=== PATIENT | female | born 1980 | race Two or more races ===

== ENCOUNTER 2020-02-09 09:38 | Outpatient (REF) | payer BC, SELFPAY ==
[2020-02-09 10:22] LABS: MANUAL DIFF FLAG NO
[2020-02-09 10:49] LABS: Basophils Percent Auto 0.1 % (0-2); Eosinophils Absolute Auto 0.2 X10*3/uL (0.0-0.4); Eosinophils Percent Auto 2.7 % (0-4); Hemoglobin 12.9 g/dl (12.0-16.0); Imm Gran Abs Auto 0.01 X10*3/uL (0.00-0.03); Imm Gran Pct Auto 0.1 % (0.0-0.4); Lymphocytes Absolute Auto 2.5 X10*3/uL (1.2-4.9); Lymphocytes Percent Auto 31.5 % (20-40); Mean Corpuscular HGB Conc 32.3 g/dl (31.0-35.0); Mean Corpuscular Hemoglobin 29.3 pg (27.0-33.0); Mean Corpuscular Volume 90.7 fL (80-98); Monocytes Absolute Auto 0.5 X10*3/uL (0.1-1.2); Monocytes Percent Auto 6.4 % (2-11); Neutrophils Absolute Auto 4.7 X10*3/uL (2.0-8.3); Neutrophils Percent Auto 59.2 % (45-73); Platelet Count 378 X10*3/uL (160-400); Red Blood Count 4.41 X10*6/uL (4.20-5.50); Red Cell Distribution Width 13.2 % (11.0-16.0); White Blood Count 7.9 X10*3/uL (4.8-10.8)
[2020-02-09 11:09] LABS: Glucose Urine UA NEG (NEG); Leukocyte Esterase Urine NEG (NEG); Nitrite Urine NEG (NEG); Specific Gravity - Urine 1.025 (1.005-1.025); Urine Blood NEG (NEG); Urine Ketones NEG (NEG); Urine Protein NEG (NEG-TRACE)
[2020-02-09 11:18] LABS: Appearance Urine CLEAR; Color Urine YELLOW
[2020-02-09 11:21] LABS: Alanine Aminotransferase 21 U/L (0-31); Albumin Level 4.1 g/dL (3.5-5.0); Alkaline Phosphatase 67 U/L (39-117); Anion Gap 12 (12-20); Aspartate Amino Transferase 19 U/L (5-31); Bilirubin Total 0.2 mg/dL (0.0-1.0); Blood Urea Nitrogen 12 mg/dL (9-16); Calcium 8.9 mg/dL (8.4-10.2); Carbon Dioxide 26 mmol/L (22-29); Chloride 103 mmol/L (96-108); Cholesterol 210 mg/dL; Estimated Glomerular Filt Rate > 60; Glucose Random 93 mg/dL (60-115); HDL Cholesterol 53 mg/dL; LDL Cholesterol Calculated 121 mg/dl; Potassium 4.5 mmol/l (3.3-5.1); Sodium 136 mmol/L (135-145); Triglycerides 183 mg/dL
== END 2020-02-09 09:39 | disposition home or self-care (01) ==
LOC: HO.LAB 09:38
PROVIDERS: PCP Internal Medicine; Visit Provider Internal Medicine
DX: Z00.00 Encounter for general adult medical examination without abnormal findings (principal)
CPT/HCPCS: 36415; 80053; 80061; 81003; 85025

== ENCOUNTER 2020-05-08 11:01 | Emergency (ER) | payer BC, SELFPAY ==
[2020-05-08 11:11] VITALS: BP 121/66; BP 133/95; PULSE 66; PULSE 84; RESP 18; TEMP 37.1; O2SAT 100; BMI 41.9
--- NOTE | 2020-05-08 11:20 | XR_ITS ---
EXAMINATION: XR CHEST CLINICAL INFORMATION: Chest pain. COMPARISON: None TECHNIQUE: Frontal view of the chest was obtained. FINDINGS: No significant abnormality is noted involving the heart, lungs, mediastinum, bony thorax or soft tissues. XR/XR chest 1V IMPRESSION: Unremarkable examination.
--- NOTE | 2020-05-08 11:20 | ECG_ITS ---
Test Reason : CHEST PAIN Blood Pressure : / mmHG Vent. Rate : 075 BPM Atrial Rate : 075 BPM P-R Int : 156 ms QRS Dur : 080 ms QT Int : 386 ms P-R-T Axes : 066 058 038 degrees QTc Int : 431 ms Normal sinus rhythm with sinus arrhythmia Nonspecific T wave abnormality Abnormal ECG No previous ECGs available Referred By: Generic ED Physician Electronically Signed By:NANCY LÓPEZ MD
[2020-05-08 11:34] LABS: MANUAL DIFF FLAG NO
--- NOTE | 2020-05-08 11:34 | PC.NURSE ---
patient a&ox3, patient coms from home with lt/rt c/p since yesterday as well as low back pain, iv inserted, labs drawn, nrs 80s on library monitor, vss, will continue to monitor.
[2020-05-08 11:40] LABS: Basophils Percent Auto 0.3 % (0-2); Eosinophils Absolute Auto 0.1 X10*3/uL (0.0-0.4); Eosinophils Percent Auto 1.8 % (0-4); Hematocrit 40.5 % (37-47); Hemoglobin 13.4 g/dl (12.0-16.0); Imm Gran Abs Auto 0.03 X10*3/uL (0.00-0.03); Imm Gran Pct Auto 0.4 % (0.0-0.4); Lymphocytes Absolute Auto 1.9 X10*3/uL (1.2-4.9); Lymphocytes Percent Auto 26.2 % (20-40); Mean Corpuscular HGB Conc 33.1 g/dl (31.0-35.0); Mean Corpuscular Hemoglobin 30.2 pg (27.0-33.0); Mean Corpuscular Volume 91.4 fL (80-98); Mean Platelet Volume 10.2 fL (9.4-12.3); Monocytes Absolute Auto 0.4 X10*3/uL (0.1-1.2); Monocytes Percent Auto 5.2 % (2-11); Neutrophils Absolute Auto 4.8 X10*3/uL (2.0-8.3); Neutrophils Percent Auto 66.1 % (45-73); Platelet Count 347 X10*3/uL (160-400); Red Blood Count 4.43 X10*6/uL (4.20-5.50); Red Cell Distribution Width 15.1 % (11.0-16.0); White Blood Count 7.3 X10*3/uL (4.8-10.8)
--- NOTE | 2020-05-08 11:45 | ED.CHESTPAIN ---
HPI - Chest Pain General Chief Complaint: Chest Pain Stated Complaint: CP W/MULTI LOC EPISODES PER EMS Time Seen by Provider: 05/08/20 11:31 History of Present Illness HPI narrative: Patient is a 39-year-old female presents today with having chest pain on the right side. It is sharp in nature. Constant. Patient claims the pain has been ongoing since 14:00 yesterday. Not associated with shortness of breath. Worsened with certain position. No coughing or congestion or upper respiratory symptoms. No diaphoresis. No change in smell or taste. No history of diabetes, hypertension, mi, family history of IN. No history of smoking. No history of sudden . No history of leg swelling. No history of control. No history of pulmonary embolism. Pain is constant. No travel history Related Data Allergies Allergy/AdvReac Type Severity Reaction Status Date / Time No Known Allergies Allergy Verified 05/08/20 11:42 Review of Systems Review of Systems: Constitutional: No Weight loss, No Fever, No Chills, No Night Sweats, No Fatigue, No Malaise ENT/Mouth: No Hearing loss, No Ear Pain, No Nasal Congestion, No Sinus Pain, No Hoarseness, No sore throat, No Rhinorrhea, No Swallowing Difficulty Eyes: No Eye Pain, No Swelling, No Redness, No Foreign Body, No Discharge, No Vision Changes Cardiovascular: Positive Chest Pain, No SOB, No Dyspnea on Exertion, No Orthopnea, No Edema, No Palpitations Respiratory: No Cough, No Sputum, No Wheezing, No Smoke Exposure, No Dyspnea Gastrointestinal: No Nausea, No Vomiting, No Diarrhea, No Constipation, No abdominal Pain, No Hematochezia, No Melena Genitourinary: no irregular bleeding, No Dysuria, No Urinary Frequency, No Hematuria, No Urinary Incontinence, No Urgency, No Flank Pain, No Urinary Flow Changes, No Hesitancy Musculoskeletal: No joint pain, No Myalgias, No Joint Swelling Skin: No Skin Lesions, No rash Neuro: No Weakness, No Numbness, No Paresthesias, No Loss of Consciousness, No Dizziness, No Headache Psych: No Anxiety/Panic, No Depression, No SI/HI/AH/VH, No Social Issues, Heme/Lymph: No Bruising, No Bleeding,No Lymphadenopathy Endocrine: No Polyuria, No Polydipsia, No Temperature Intolerance [facility] Past Medical History Medical History Obesity Social History Social History Alcohol intake: never Smoked in Last 30 Days: No Use of substances other than those prescribed or required for medical reasons: No Advance Directives: No Advance Directives Information Provided: Yes Physical Exam Vital Signs: Vital Signs: Last Vital Signs Temp 98.8 F 05/08/20 11:11 Pulse 66 05/08/20 11:11 Resp 18 05/08/20 11:11 BP 133/95 H 05/08/20 11:11 Pulse Ox 100 05/08/20 11:11 Body Mass Index 41.9 Appearance: Alert. Oriented X3. No acute distress. Eyes: Pupils equal, round and reactive to light. ENT: Pharynx normal. Neck: Normal inspection. Neck supple. No lymph nodes noted. No crepitus CVS: Normal heart rate and rhythm. Pulses normal. Normal S1 and S2 Respiratory: No respiratory distress. Breath sounds normal. No Wheezing. No rales Abdomen: Soft and nontender. No rigidity. No distention. good BS x4 Skin: Skin warm and dry. Normal skin color. Normal skin turgor. Extremities: No lower extremity edema. Neurovascular intact to all extremities. No Lacerations. No Rash Neuro: Oriented X 3. No motor deficit. No sensory deficit. Moving all extermities. No slurred speech MDM - Chest Pain MDM Narrative Medical decision making narrative: No rash in the skin noted. No evidence for shingles. Patient's electrolytes are normal. Troponin is negative. test was negative. No evidence for ectopic. Chest x-ray was negative for any acute evidence of pneumonia or pneumothorax. Pain is greater than 6 hours with no significant cardiac risk factor. history not consistent with ACS unlikely to be ACS is heart score less than 3 Lab Data Attestation: I reviewed the patient's lab results. Result diagrams: 05/08/20 11:29 05/08/20 11:29 Labs: Lab Results 05/08/20 05/08/20 05/08/20 Range/Units 11:29 11:29 11:29 WBC 7.3 (4.8-10.8) X10*3/uL RBC 4.43 (4.20-5.50) X10*6/uL Hgb 13.4 (12.0-16.0) g/dl Hct 40.5 (37-47) % MCV 91.4 (80-98) fL MCH 30.2 (27.0-33.0) pg MCHC 33.1 (31.0-35.0) g/dl RDW 15.1 (11.0-16.0) % Plt Count 347 (160-400) X10*3/uL MPV 10.2 (9.4-12.3) fL Immature Gran % (Auto) 0.4 (0.0-0.4) % Neut % (Auto) 66.1 (45-73) % Lymph % (Auto) 26.2 (20-40) % [place] % (Auto) 5.2 (2-11) % Eos % (Auto) 1.8 (0-4) % Baso % (Auto) 0.3 (0-2) % Lymph # (Auto) 1.9 (1.2-4.9) X10*3/uL [place] # (Auto) 0.4 (0.1-1.2) X10*3/uL Eos # (Auto) 0.1 (0.0-0.4) X10*3/uL Baso # (Auto) 0.0 (0.0-0.2) X10*3/uL Abs Immat Gran (auto) 0.03 (0.00-0.03) X10*3/uL Absolute Neuts (auto) 4.8 (2.0-8.3) X10*3/uL Absolute Nucleated RBC 0.000 (0.0-0.012) X10*3/uL Nucleated RBC % (auto) 0.0 (0.0-0.2) /100WBC D-Dimer < 200 NG/ML Hold Blue Top SEE NOTE Sodium 135 (135-145) mmol/L Potassium 5.0 (3.3-5.1) mmol/l Chloride 103 (96-108) mmol/L Carbon Dioxide 18 L (22-29) mmol/L Anion Gap 19 (12-20) BUN 12 (9-16) mg/dL Creatinine 1.48 H (0.5-1.4) mg/dL Estim Creat Clear Calc 66.0 Estimated GFR 39 Random Glucose 107 (60-115) mg/dL Calcium 9.2 (8.4-10.2) mg/dL Total Bilirubin 0.5 (0.0-1.0) mg/dL Direct Bilirubin < 0.2 (0.0-0.5) mg/dL AST 47 H D (5-31) U/L ALT 30 (0-31) U/L Alkaline Phosphatase 54 (39-117) U/L Troponin I High Sens (<3.5-17.0) ng/L Total Protein 7.8 (6.5-8.0) g/dL Albumin 4.6 (3.5-5.0) g/dL Lipase 19 (8-78) U/L Beta HCG, Quant < 2 mIU/mL 05/08/20 Range/Units 11:29 WBC (4.8-10.8) X10*3/uL RBC (4.20-5.50) X10*6/uL Hgb (12.0-16.0) g/dl Hct (37-47) % MCV (80-98) fL MCH (27.0-33.0) pg MCHC (31.0-35.0) g/dl RDW (11.0-16.0) % Plt Count (160-400) X10*3/uL MPV (9.4-12.3) fL Immature Gran % (Auto) (0.0-0.4) % Neut % (Auto) (45-73) % Lymph % (Auto) (20-40) % [place] % (Auto) (2-11) % Eos % (Auto) (0-4) % Baso % (Auto) (0-2) % Lymph # (Auto) (1.2-4.9) X10*3/uL [place] # (Auto) (0.1-1.2) X10*3/uL Eos # (Auto) (0.0-0.4) X10*3/uL Baso # (Auto) (0.0-0.2) X10*3/uL Abs Immat Gran (auto) (0.00-0.03) X10*3/uL Absolute Neuts (auto) (2.0-8.3) X10*3/uL Absolute Nucleated RBC (0.0-0.012) X10*3/uL Nucleated RBC % (auto) (0.0-0.2) /100WBC D-Dimer NG/ML Hold Blue Top Sodium (135-145) mmol/L Potassium (3.3-5.1) mmol/l Chloride (96-108) mmol/L Carbon Dioxide (22-29) mmol/L Anion Gap (12-20) BUN (9-16) mg/dL Creatinine (0.5-1.4) mg/dL Estim Creat Clear Calc Estimated GFR Random Glucose (60-115) mg/dL Calcium (8.4-10.2) mg/dL Total Bilirubin (0.0-1.0) mg/dL Direct Bilirubin (0.0-0.5) mg/dL AST (5-31) U/L ALT (0-31) U/L Alkaline Phosphatase (39-117) U/L Troponin I High Sens < 3.5 (<3.5-17.0) ng/L Total Protein (6.5-8.0) g/dL Albumin (3.5-5.0) g/dL Lipase (8-78) U/L Beta HCG, Quant mIU/mL ECG Data ECG #1: Interpretation: Sinus heart rate is 75 ND QRS normal. Nonspecific T-wave flattening diffusely. Discharge Plan Discharge Clinical Impression: Chest pain Patient Disposition: Home, Self-Care Instructions: Chest Pain (ED) Referrals: Shiva Willingham MD [Primary Care Provider] - 2 days
[2020-05-08 12:01] LABS: Anion Gap 19 (12-20); Blood Urea Nitrogen 12 mg/dL (9-16); Calcium 9.2 mg/dL (8.4-10.2); Carbon Dioxide 18 mmol/L (22-29); Chloride 103 mmol/L (96-108); Estimated Glomerular Filt Rate 39; Glucose Random 107 mg/dL (60-115); Sodium 135 mmol/L (135-145)
[2020-05-08 12:03] LABS: D Dimer < 200 NG/ML
[2020-05-08 12:09] LABS: Troponin-I High Sensitivity < 3.5 ng/L (<3.5-17.0)
[2020-05-08] MEDS: Ketorolac Tromethamine 15 MG/ML VIAL IV (12:12)
--- NOTE | 2020-05-08 12:13 | PC.NURSE ---
patient medicated per order
--- NOTE | 2020-05-08 12:16 | PC.NURSE ---
patient medicated for pain per order
[2020-05-08 12:20] LABS: HCG Quantitative < 2 mIU/mL
[2020-05-08 12:39] LABS: Alanine Aminotransferase 30 U/L (0-31); Albumin Level 4.6 g/dL (3.5-5.0); Alkaline Phosphatase 54 U/L (39-117); Aspartate Amino Transferase 47 U/L (5-31); Bilirubin Direct < 0.2 mg/dL (0.0-0.5); Bilirubin Total 0.5 mg/dL (0.0-1.0); Lipase 19 U/L (8-78); Total Protein 7.8 g/dL (6.5-8.0)
[2020-05-08] MEDS: 0.9 % Sodium Chloride 1,000 ML 999 ML IV (13:15)
--- NOTE | 2020-05-08 13:15 | PC.NURSE ---
patient medicated with ns per order, vehicle monitor technician remains sinus danelle 60s, will continue to monitor.
== END 2020-05-08 14:12 | disposition home or self-care (01) ==
PROVIDERS: Emergency Provider Emergency Medicine Emergency Medical Services; PCP Internal Medicine
DX: R07.9 Chest pain, unspecified (principal)
CPT/HCPCS: 36415; 71045; 80048; 80076; 83690; 84484; 84702; 85025; 85379; 93005; 96361; 96374; 99284; J1885

== ENCOUNTER 2020-07-19 10:11 | Outpatient (REF) | payer BC, SELFPAY ==
[2020-07-19 11:31] LABS: TSH reflex Free T4 20.05 uIU/mL (0.32-4.0)
== END 2020-07-19 10:12 | disposition home or self-care (01) ==
LOC: HO.LNP 10:11
PROVIDERS: Visit Provider Internal Medicine
DX: E03.9 Hypothyroidism, unspecified (principal)
CPT/HCPCS: 84439; 84443

== ENCOUNTER 2020-08-30 10:17 | Outpatient (REF) | payer BC, SELFPAY ==
[2020-08-30 11:26] LABS: TSH reflex Free T4 4.09 uIU/mL (0.32-4.0)
[2020-08-30 12:35] LABS: Free T4 (Free Thyroxine) 1.03 ng/dL (0.71-1.85)
== END 2020-08-30 10:18 | disposition home or self-care (01) ==
LOC: HO.LNP 10:17
PROVIDERS: Visit Provider Internal Medicine
DX: E03.9 Hypothyroidism, unspecified (principal)
CPT/HCPCS: 84439; 84443

== ENCOUNTER 2020-09-07 10:20 | Outpatient (REF) | payer BC, SELFPAY ==
[2020-09-08 13:46] LABS: Lyme Abs Screen <0.90 index
== END 2020-09-07 10:21 | disposition home or self-care (01) ==
LOC: HO.LNP 10:20
PROVIDERS: Visit Provider Internal Medicine
DX: R00.2 Palpitations (principal)
CPT/HCPCS: 86617; 86618

== ENCOUNTER 2020-10-08 10:11 | Outpatient (REF) | payer BC, SELFPAY | END 2020-10-08 10:12 | disposition home or self-care (01) | LOC: HO.LNP 10:11 | PROVIDERS: Visit Provider Internal Medicine | DX: N30.00 Acute cystitis without hematuria (principal) | CPT/HCPCS: 87086 ==

== ENCOUNTER 2021-02-08 10:59 | Outpatient (REF) | payer BC, SELFPAY ==
[2021-02-08 11:01] LABS: MANUAL DIFF FLAG NO
[2021-02-08 11:22] LABS: Basophils Percent Auto 0.3 % (0-2); Eosinophils Absolute Auto 0.2 X10*3/uL (0.0-0.4); Eosinophils Percent Auto 2.6 % (0-4); Hematocrit 38.9 % (37-47); Hemoglobin 12.5 g/dl (12.0-16.0); Imm Gran Abs Auto 0.02 X10*3/uL (0.00-0.03); Imm Gran Pct Auto 0.3 % (0.0-0.4); Lymphocytes Absolute Auto 2.2 X10*3/uL (1.2-4.9); Lymphocytes Percent Auto 31.7 % (20-40); Mean Corpuscular HGB Conc 32.1 g/dl (31.0-35.0); Mean Corpuscular Hemoglobin 29.4 pg (27.0-33.0); Mean Corpuscular Volume 91.5 fL (80-98); Mean Platelet Volume 10.3 fL (9.4-12.3); Monocytes Absolute Auto 0.4 X10*3/uL (0.1-1.2); Monocytes Percent Auto 6.2 % (2-11); Neutrophils Absolute Auto 4.1 X10*3/uL (2.0-8.3); Neutrophils Percent Auto 58.9 % (45-73); Platelet Count 348 X10*3/uL (160-400); Red Blood Count 4.25 X10*6/uL (4.20-5.50)
[2021-02-08 11:32] LABS: Alanine Aminotransferase 14 U/L (0-31); Albumin Level 3.9 g/dL (3.5-5.0); Alkaline Phosphatase 73 U/L (39-117); Anion Gap 11 (12-20); Aspartate Amino Transferase 17 U/L (5-31); Bilirubin Total 0.4 mg/dL (0.0-1.0); Blood Urea Nitrogen 11 mg/dL (9-16); Calcium 9.2 mg/dL (8.4-10.2); Carbon Dioxide 27 mmol/L (22-29); Chloride 104 mmol/L (96-108); Cholesterol 191 mg/dL; Estimated Glomerular Filt Rate > 60; Glucose Fasting 93 mg/dL (60-99); HDL Cholesterol 40 mg/dL; LDL Cholesterol Calculated 110 mg/dl; Potassium 4.3 mmol/L (3.3-5.1); Sodium 138 mmol/L (135-145); Total Protein 6.8 g/dL (6.5-8.0); Triglycerides 209 mg/dL
[2021-02-08 11:53] LABS: Appearance Urine CLEAR; Color Urine YELLOW; Glucose Urine UA NEG (NEG); Leukocyte Esterase Urine NEG (NEG); Nitrite Urine NEG (NEG); Specific Gravity - Urine 1.025 (1.005-1.025); Urine Blood NEG (NEG); Urine Ketones NEG (NEG); Urine Protein NEG (NEG-TRACE)
[2021-02-08 11:54] LABS: TSH reflex Free T4 2.94 uIU/mL (0.32-4.0)
== END 2021-02-08 11:00 | disposition home or self-care (01) ==
LOC: HO.LNP 10:59
PROVIDERS: Visit Provider Internal Medicine
DX: Z00.00 Encounter for general adult medical examination without abnormal findings (principal); R79.9 Abnormal finding of blood chemistry, unspecified; E03.9 Hypothyroidism, unspecified
CPT/HCPCS: 80053; 80061; 81003; 84443; 85025

== ENCOUNTER 2021-02-25 07:03 | Day surgery (SDC) | payer BC, SELFPAY ==
--- NOTE | 2021-02-23 14:59 | HO.ANESPROP2 ---
Documented by User: Phyllis Azar NP 02/23/21 15:00 HPI - Anesthesia Eval Consult details Narrative: 40yo F for Upper Endoscopy [facility] Past Medical History Medical History (Updated 02/17/21 @ 14:21 by Trisha Mendez RN) Abdominal discomfort History of [place] thyroiditis History of palpitations Hypothyroid Obesity Surgical History Surgical History (Updated 02/17/21 @ 14:19 by Trisha Mendez RN) Hx of ovarian cystectomy Social History Social History Alcohol intake: never Patient Tobacco Use Status: Never used Tobacco Use of substances other than those prescribed or required for medical reasons: No Are you DNR?: No Advance Directives: No Advance Directives Information Provided: Yes Recently lost weight without trying: No Nutrition Risks: No Nutritional Risk Meds Allergies Allergy/AdvReac Type Severity Reaction Status Date / Time No Known Allergies Allergy Verified 02/17/21 14:21 Home Medications Medication Instructions Recorded Confirmed Last Taken Type calcium carbonate 500 mg calcium 500 mg PO DAILY 02/17/21 02/17/21 Unknown History (1,250 mg) chewable tablet levothyroxine 100 mcg capsule 100 mcg PO DAILY 02/17/21 02/17/21 Unknown History multivitamin 1 tab PO DAILY 02/17/21 02/17/21 Unknown History Exam Exam Date and Time: February 23, 2021 [id number] Assessment and Plan Assessment Anesthesia Assessment: Chart Reviewed Documented by User: Dorothy Whipple MD 02/25/21 07:47 [facility] Past Medical History Medical History (Updated 02/17/21 @ 14:21 by Trisha Mendez RN) Abdominal discomfort History of [place] thyroiditis History of palpitations Hypothyroid Obesity Surgical History Surgical History (Updated 02/17/21 @ 14:19 by Trisha Mendez RN) Hx of ovarian cystectomy Social History Social History Alcohol intake: never Patient Tobacco Use Status: Never used Tobacco Use of substances other than those prescribed or required for medical reasons: No Are you DNR?: No Advance Directives: No Advance Directives Information Provided: Yes Recently lost weight without trying: No Nutrition Risks: No Nutritional Risk Meds Allergies Allergy/AdvReac Type Severity Reaction Status Date / Time No Known Allergies Allergy Verified 02/17/21 14:21 Home Medications Medication Instructions Recorded Confirmed Last Taken Type calcium carbonate 500 mg calcium 500 mg PO DAILY 02/17/21 02/17/21 Unknown History (1,250 mg) chewable tablet levothyroxine 100 mcg capsule 100 mcg PO DAILY 02/17/21 02/17/21 Unknown History multivitamin 1 tab PO DAILY 02/17/21 02/17/21 Unknown History Exam Airway Mallampati Class: II TM Dist: >3cm Neck ROM: Full
[2021-02-25 07:21] VITALS: BP 123/66; PULSE 75; RESP 16; TEMP 36.2; O2SAT 98; BMI 38.4
[2021-02-25 07:22] LABS: UPreg QC Valid YES; Urine Pregnancy NEGATIVE (NEGATIVE)
[2021-02-25] MEDS: Lactated Ringers 1,000 ML 100 ML IVCONT (07:39)
--- NOTE | 2021-02-25 08:24 | MHC.SHP ---
Pre-Procedural Eval Section A Date of Service: 02/25/21 Section B Chief Complaint: reflux disease Details of Present Illness: See H&P no changes Relevant Family History (Specify if Yes): No Relevant Social History: None Present Medications: see Short Stay Collaborative assessment Medical History: No relevant PMH History of Previous Operations: No relevant previous surgery Allergies: Allergies Allergy/AdvReac Type Severity Reaction Status Date / Time No Known Allergies Allergy Verified 02/17/21 14:21 Review of Systems Sugical H&P ROS: Negative: Constitution, Cardiovascular, Respiratory, Neurological, Psychiatric, Hem-Onc, Allergic/Immunologic, Gastrointestinal, Genitourinary, Musculoskeletal, Integumentary, Endocrine and Eyes/Ears/Nose/Throat Exam Surgical H&P Exam: Normal: HEENT, Normal: Heart, Normal: Lungs, Normal: Extremities, Normal: Abdomen, Normal: Skin and Normal: Neurological Plan Diagnosis/Plan: Unchanged I have reviewed the history and physical and performed a pertinent physical examination on my patient. No changes have occurred unless specified.
--- NOTE | 2021-02-25 08:47 | PM.OP ---
Brief Operative Note Date of Service: 02/25/21 Pre-op diagnosis: gerd Post-op diagnosis: same (gastritis) Procedure: EGD Surgeon: Derek Green Anesthesia: MAC Was an Dry Kiln Operator used for this Procedure?: No Estimated blood loss (mL): 5 Pathology: other (bxs antrum and egj) Condition: stable Disposition: PACU
[2021-02-25 08:50] VITALS: BP 92/57; PULSE 74; RESP 16; TEMP 36.4; O2SAT 99
[2021-02-25 09:04] VITALS: BP 107/70; PULSE 71; RESP 16; TEMP 36.4; O2SAT 98
--- NOTE | 2021-02-25 11:19 | OP_ITS ---
SURGEON: Derek Green MD INDICATIONS: Gastroesophageal reflux disease. PREOPERATIVE DIAGNOSIS: POSTOPERATIVE DIAGNOSIS: PROCEDURE PERFORMED: Upper endoscopy with biopsy. ESTIMATED BLOOD LOSS: COMPLICATIONS: ANESTHESIA: ASSISTANTS: SPECIMENS: MEDICATIONS: Monitored anesthesia care. DESCRIPTION OF PROCEDURE: History and physical performed. The risks and benefits of the procedure were explained to the patient. Informed consent was obtained. The patient was placed in the left lateral decubitus position. The Olympus video gastroscope was introduced into the esophagus, stomach, and duodenum. Examination was performed and the scope was removed. She tolerated the procedure well and was taken to recovery area in stable condition. FINDINGS: Esophagus: The esophagus was normal. There was an irregular EG junction. There was no esophagitis. Stomach: The stomach showed no evidence of masses, ulcers, or polyps. There was mild gastritis mainly in the fundus with some punctate erythema. There was some thickening of folds in the antrum, but no ulcer. Biopsies were obtained from the antrum to rule out H pylori. Duodenum: The bulb and second portion were normal. IMPRESSION: 1. Gastritis. 2. Gastroesophageal reflux disease. RECOMMENDATIONS: 1. Follow up the biopsy results. 2. Treat H pylori if present. MD SHIELA Miguel/SHANNAN / [id number]
== END 2021-02-25 09:33 | disposition home or self-care (01) ==
PROVIDERS: Nurse Practitioner; PCP Internal Medicine; Visit Provider Internal Medicine Gastroenterology
PROC: 0DJ08ZZ Inspection of Upper Intestinal Tract, Via Natural or Artificial Opening Endoscopic (ICD-10-PCS; CPT 43235; principal; 2021-02-25 08:10)
DX: K21.9 Gastro-esophageal reflux disease without esophagitis (principal); K29.50 Unspecified chronic gastritis without bleeding; B96.81 Helicobacter pylori [H. pylori] as the cause of diseases classified elsewhere; E06.3 Autoimmune thyroiditis; E03.9 Hypothyroidism, unspecified; R00.2 Palpitations; Z79.899 Other long term (current) drug therapy
CPT/HCPCS: 43239; 81025; 88305; 88342; J3010

== ENCOUNTER 2021-06-24 10:18 | Outpatient (REF) | payer BC, SELFPAY | END 2021-06-24 10:19 | disposition home or self-care (01) | LOC: HO.LNP 10:18 | PROVIDERS: Visit Provider Internal Medicine Gastroenterology | DX: A04.8 Other specified bacterial intestinal infections (principal) | CPT/HCPCS: 87338 ==

== ENCOUNTER 2021-08-12 10:26 | Outpatient (REF) | payer BC, SELFPAY ==
[2021-08-12 11:27] LABS: TSH reflex Free T4 2.54 uIU/mL (0.32-4.0)
== END 2021-08-12 10:27 | disposition home or self-care (01) ==
LOC: HO.LNP 10:26
PROVIDERS: Visit Provider Internal Medicine
DX: E03.9 Hypothyroidism, unspecified (principal)
CPT/HCPCS: 84443

== ENCOUNTER 2022-02-14 10:57 | Outpatient (REF) | payer BC, SELFPAY ==
[2022-02-14 11:00] LABS: MANUAL DIFF FLAG NO
[2022-02-14 11:09] LABS: Basophils Percent Auto 0.1 % (0-2); Eosinophils Absolute Auto 0.2 X10*3/uL (0.0-0.4); Eosinophils Percent Auto 2.7 % (0-4); Hematocrit 37.4 % (37.0-47.0); Imm Gran Abs Auto 0.01 X10*3/uL (0.00-0.03); Imm Gran Pct Auto 0.1 % (0.0-0.4); Lymphocytes Absolute Auto 2.4 X10*3/uL (1.2-4.9); Lymphocytes Percent Auto 33.2 % (20-40); Mean Corpuscular HGB Conc 32.1 g/dl (31.0-35.0); Mean Corpuscular Hemoglobin 29.5 pg (27.0-33.0); Mean Corpuscular Volume 91.9 fL (80.0-98.0); Monocytes Absolute Auto 0.5 X10*3/uL (0.1-1.2); Monocytes Percent Auto 7.5 % (2-11); Neutrophils Percent Auto 56.4 % (45-73); Platelet Count 383 X10*3/uL (160-400); Red Blood Count 4.07 X10*6/uL (4.20-5.50); Red Cell Distribution Width 13.2 % (11.0-16.0); White Blood Count 7.1 X10*3/uL (4.8-10.8)
[2022-02-14 11:22] LABS: Appearance Urine Clear; Color Urine Straw; Glucose Urine UA Negative (Negative); Leukocyte Esterase Urine Negative (Negative); Nitrite Urine Negative (Negative); PH 5.5 (5.0-9.0); Specific Gravity - Urine >= 1.030 (1.005-1.025); UMIC TRIGGER UA YES; Urine Blood Trace (Negative); Urine Ketones Negative (Negative); Urine Protein Negative (Neg-Trace)
[2022-02-14 11:27] LABS: Alanine Aminotransferase 14 U/L (0-31); Albumin Level 3.8 g/dL (3.5-5.0); Alkaline Phosphatase 72 U/L (39-117); Anion Gap 14 (12-20); Aspartate Amino Transferase 15 U/L (5-31); Bilirubin Total 0.2 mg/dL (0.0-1.0); Blood Urea Nitrogen 17 mg/dL (9-16); Calcium 8.9 mg/dL (8.4-10.2); Carbon Dioxide 25 mmol/L (22-29); Chloride 106 mmol/L (96-108); Cholesterol 163 mg/dL; Estimated Glomerular Filt Rate > 60; Glucose Fasting 99 mg/dL (60-99); HDL Cholesterol 44 mg/dL; LDL Cholesterol Calculated 98 mg/dl; Potassium 4.5 mmol/L (3.3-5.1); Sodium 140 mmol/L (135-145); Total Protein 6.7 g/dL (6.5-8.0); Triglycerides 105 mg/dL
[2022-02-14 11:34] LABS: Bacteria Urine None Seen (None Seen); Hyaline Casts Urine 0-2 /LPF (0-2); RBC Urine 0-2 /HPF (0-2); WBC Urine 0-5 /HPF (0-5)
[2022-02-14 11:48] LABS: TSH reflex Free T4 2.85 uIU/mL (0.32-4.0)
== END 2022-02-14 10:58 | disposition home or self-care (01) ==
LOC: HO.LNP 10:57
PROVIDERS: Visit Provider Internal Medicine
DX: Z00.00 Encounter for general adult medical examination without abnormal findings (principal); E03.9 Hypothyroidism, unspecified; E66.01 Morbid (severe) obesity due to excess calories
CPT/HCPCS: 80053; 80061; 81001; 84443; 85025

== ENCOUNTER 2022-02-22 19:11 | Emergency (ER) | payer BC, SELFPAY ==
--- NOTE | 2022-02-22 19:14 | ECG_ITS ---
Test Reason : chest pain Blood Pressure : / mmHG Vent. Rate : 099 BPM Atrial Rate : 099 BPM P-R Int : 136 ms QRS Dur : 082 ms QT Int : 338 ms P-R-T Axes : 071 054 042 degrees QTc Int : 433 ms Normal sinus rhythm Normal ECG When compared with ECG of 08-MAY-2020 11:08, Nonspecific T wave abnormality no longer evident in Lateral leads Referred By: Generic ED Physician Electronically Signed By:KELIN VENEGAS MD
[2022-02-22 19:17] VITALS: BP 118/93; PULSE 90; RESP 18; TEMP 36.6; O2SAT 99; BMI 38.8
[2022-02-22 19:35] LABS: MANUAL DIFF FLAG NO
[2022-02-22 19:46] LABS: Basophils Percent Auto 0.2 % (0-2); Eosinophils Absolute Auto 0.2 X10*3/uL (0.0-0.4); Eosinophils Percent Auto 1.7 % (0-4); Hematocrit 36.6 % (37.0-47.0); Hemoglobin 11.8 g/dl (12.0-16.0); Imm Gran Abs Auto 0.04 X10*3/uL (0.00-0.03); Imm Gran Pct Auto 0.3 % (0.0-0.4); Lymphocytes Absolute Auto 2.5 X10*3/uL (1.2-4.9); Lymphocytes Percent Auto 19.7 % (20-40); Mean Corpuscular HGB Conc 32.2 g/dl (31.0-35.0); Mean Corpuscular Hemoglobin 29.1 pg (27.0-33.0); Mean Corpuscular Volume 90.4 fL (80.0-98.0); Mean Platelet Volume 9.7 fL (9.4-12.3); Monocytes Absolute Auto 0.9 X10*3/uL (0.1-1.2); Monocytes Percent Auto 7.5 % (2-11); Neutrophils Absolute Auto 8.9 x10*3/uL (2.0-8.3); Neutrophils Percent Auto 70.6 % (45-73); Platelet Count 390 X10*3/uL (160-400); Red Blood Count 4.05 X10*6/uL (4.20-5.50); Red Cell Distribution Width 12.9 % (11.0-16.0); White Blood Count 12.6 X10*3/uL (4.8-10.8)
[2022-02-22 19:55] LABS: Alanine Aminotransferase 16 U/L (0-31); Alkaline Phosphatase 79 U/L (39-117); Anion Gap 15 (12-20); Aspartate Amino Transferase 15 U/L (5-31); Bilirubin Total 0.2 mg/dL (0.0-1.0); Blood Urea Nitrogen 12 mg/dL (9-16); Carbon Dioxide 24 mmol/L (22-29); Chloride 102 mmol/L (96-108); Creatinine Clr Calc Pharmacy 110.2; Estimated Glomerular Filt Rate > 60; Glucose Random 114 mg/dL (60-115); Potassium 4.2 mmol/L (3.3-5.1); Sodium 137 mmol/L (135-145); Total Protein 7.1 g/dL (6.5-8.0)
[2022-02-22 19:58] LABS: Troponin-I High Sensitivity < 3.5 ng/L (<3.5-17.0)
== END 2022-02-23 02:02 | disposition left against medical advice (07) ==
LOC: HO.ED 02-23 01:51
PROVIDERS: Emergency Provider Emergency Medicine; PCP Internal Medicine
DX: R07.9 Chest pain, unspecified (principal); E66.9 Obesity, unspecified; Z68.38 Body mass index [BMI] 38.0-38.9, adult
CPT/HCPCS: 36415; 80053; 84484; 85025; 93005; 99283

== ENCOUNTER 2022-02-24 14:50 | Emergency (ER) | payer BC, SELFPAY ==
--- NOTE | 2022-02-24 | ECG_ITS ---
Test Reason : CHEST PAIN Blood Pressure : / mmHG Vent. Rate : 069 BPM Atrial Rate : 069 BPM P-R Int : 136 ms QRS Dur : 088 ms QT Int : 406 ms P-R-T Axes : 051 031 023 degrees QTc Int : 435 ms Normal sinus rhythm Normal ECG When compared with ECG of 22-FEB-2022 19:14, Heart rate has decreased Referred By: Generic ED Physician Electronically Signed By:KELIN VENEGAS MD
--- NOTE | ~2022-02-24 | CT_ITS ---
EXAMINATION: CTA CHEST CT ABDOMEN AND PELVIS WITH CONTRAST CLINICAL INFORMATION: Elevated d-dimer. Chest pain radiating to the back. COMPARISON: Chest x-ray 02/24/2022 TECHNIQUE: A noncontrast localizer was performed, followed by the administration of 85 mL Omnipaque [address] of the chest was then performed. Coronal and sagittal reformatted and 3-D technique MIP images of the chest were completed at the CT scanner and reviewed on the PACS workstation. No adverse effects were reported. Images were then performed through the abdomen and pelvis. Coronal and sagittal reformatted images performed at CT scanner by technologist. [This CT examination was performed using dose optimization techniques as appropriate, variously including the following: *Automated exposure control *Adjustment of mA and/or kV according to patient size (this includes techniques or standardized protocols for targeted exams where dose is matched to indication/reason for exam; i.e. extremities or head) *Use of iterative reconstruction technique] DLP: 1263 mGy-cm. FINDINGS: CTA CHEST Vascular: The main pulmonary artery, secondary and tertiary branches of the pulmonary artery are normally opacified with no evidence of pulmonary embolism. The aorta and great vessels are unremarkable. Mediastinum: No mediastinal mass. No significant lymphadenopathy. There is no pericardial effusion. Lungs: The lungs are clear. No nodule or infiltrate. Central bronchial airways open. Fluid: There is no pericardial effusion. There is no pleural effusion. Axilla: No significant lymphadenopathy. CT SCAN ABDOMEN/PELVIS: Liver, Gallbladder and Biliary Tree: The liver is normal in size, shape, and attenuation. No focal hepatic lesion or biliary ductal dilatation is present. The gallbladder is unremarkable with no evidence of radiopaque gallstones, gallbladder wall thickening, or obvious pericholecystic inflammatory changes. Pancreas: Unremarkable. Spleen: Unremarkable. Adrenal Glands: Unremarkable. Kidneys and Ureters: Nonobstructive 5 mm stone in the upper pole of the left kidney. There is a 2 mm stone in the midpole of left kidney. No stone in the right kidney. No hydronephrosis of either kidney. No hydroureter. No ureteral calculi. Bladder: Unremarkable. Gastrointestinal Tract: The small and large bowel are unremarkable. The appendix is unremarkable. Abdominal Wall: No significant hernia is appreciated. Lymph Nodes: Normal. Vascular: Unremarkable. Pelvic Viscera: Uterus is anteverted. Lobular contour of the posterior fundus consistent with uterine fibroid. This measures about 6.5 cm transverse. Prominent right adnexal follicle/cyst measuring 2 cm. No fluid in the cul-de-sac. Osseous Structures: Unremarkable. CT/CT abdomen pelvis w IV con IMPRESSION: 1. No acute pulmonary embolus. No acute change of chest. 2. No acute abnormality of the abdomen or pelvis. 3. Nonobstructive left renal stones. 4. Uterine fibroid.
--- NOTE | ~2022-02-24 | XR_ITS ---
EXAMINATION: XR CHEST CLINICAL INFORMATION: Chest pain. COMPARISON: 05/08/2020 chest radiographs. TECHNIQUE: 2 views of the chest were obtained. FINDINGS: No significant abnormality is noted involving the heart, lungs, mediastinum, bony thorax or soft tissues. XR/XR chest 2V IMPRESSION: No acute cardiopulmonary process.
[2022-02-24 14:57] VITALS: BP 155/79; PULSE 80; RESP 20; TEMP 36.9; O2SAT 100; BMI 40.0
[2022-02-24 15:17] LABS: MANUAL DIFF FLAG NO
[2022-02-24 15:18] LABS: Basophils Percent Auto 0.2 % (0-2); Eosinophils Absolute Auto 0.2 X10*3/uL (0.0-0.4); Eosinophils Percent Auto 2.5 % (0-4); Hematocrit 35.6 % (37.0-47.0); Hemoglobin 11.5 g/dl (12.0-16.0); Imm Gran Abs Auto 0.01 X10*3/uL (0.00-0.03); Imm Gran Pct Auto 0.1 % (0.0-0.4); Lymphocytes Absolute Auto 2.3 X10*3/uL (1.2-4.9); Lymphocytes Percent Auto 24.3 % (20-40); Mean Corpuscular HGB Conc 32.3 g/dl (31.0-35.0); Mean Corpuscular Hemoglobin 29.2 pg (27.0-33.0); Mean Corpuscular Volume 90.4 fL (80.0-98.0); Mean Platelet Volume 9.6 fL (9.4-12.3); Monocytes Absolute Auto 0.6 X10*3/uL (0.1-1.2); Monocytes Percent Auto 6.1 % (2-11); Neutrophils Absolute Auto 6.3 x10*3/uL (2.0-8.3); Neutrophils Percent Auto 66.8 % (45-73); Platelet Count 397 X10*3/uL (160-400); Red Blood Count 3.94 X10*6/uL (4.20-5.50); Red Cell Distribution Width 12.6 % (11.0-16.0); White Blood Count 9.5 X10*3/uL (4.8-10.8)
[2022-02-24 15:30] LABS: D Dimer High Sensitivity 350 NG/ML
[2022-02-24 15:37] LABS: Anion Gap 15 (12-20); Blood Urea Nitrogen 12 mg/dL (9-16); Calcium 9.1 mg/dL (8.4-10.2); Carbon Dioxide 23 mmol/L (22-29); Chloride 106 mmol/L (96-108); Creatinine Clr Calc Pharmacy 116.5; Estimated Glomerular Filt Rate > 60; Glucose Random 92 mg/dL (60-115); Sodium 140 mmol/L (135-145)
[2022-02-24 15:38] LABS: Troponin-I High Sensitivity < 3.5 ng/L (<3.5-17.0)
--- NOTE | 2022-02-24 16:49 | ED.CHESTPAIN ---
HPI - Chest Pain General Chief Complaint: Chest Pain Stated Complaint: ? blood clot referred by Maulik Time Seen by Provider: 02/24/22 16:49 Source: patient Mode of arrival: ambulatory Limitations: no limitations History of Present Illness HPI narrative: 41-year-old female presents for evaluation substernal and left-sided chest pain that radiates to her upper back that started on Sunday. The pain has been increasing, and now has pain on inspiration which radiates to back. She does not report any hormone use except for level thyroxine, is not , has not traveled and has no known clotting factor deficiency. She does have a significant family history sudden in her father at age 40. MD complaint: chest pain and chest discomfort Onset (ago): day(s) (3) Timing of current episode: constant and increasing Prior episodes: No Onset: during rest Pain location: substernal and left chest Pain radiation: right shoulder Severity: moderate Pain scale (0-10): 6 Quality: tightness and aching Relieving factors: nothing Exacerbating factors: inspiration Associated symptoms: dyspnea Treatment prior to arrival: none Risk Factors Coronary artery disease risk factors: family history of CAD before age 50 Thoracic aortic dissection risk factors: none Related Data On Oral Contraceptives: No Home Medications Medication Instructions Recorded Confirmed calcium carbonate 500 mg calcium 500 mg PO DAILY 02/17/21 02/17/21 (1,250 mg) chewable tablet levothyroxine 100 mcg capsule 100 mcg PO DAILY 02/17/21 02/17/21 multivitamin 1 tab PO DAILY 02/17/21 02/17/21 Allergies Allergy/AdvReac Type Severity Reaction Status Date / Time No Known Allergies Allergy Verified 02/17/21 14:21 Review of Systems Review of Systems: Constitutional: No Fever, No Chills ENT/Mouth: No Ear Pain, No Hoarseness, No sore throat Eyes: No Eye Pain, No Swelling, No Redness, No Foreign Body Cardiovascular: Positive Chest Pain, positive SOB Respiratory: Positive pain on inspiration, No Cough, No Dyspnea Gastrointestinal: No Nausea, No Vomiting, No Diarrhea, No abdominal Pain Genitourinary: No Dysuria, No Hematuria Musculoskeletal: No joint pain, No Myalgias, No Joint Swelling Skin: No Skin lacerations, No rash Neuro: No Weakness, No Numbness, No Paresthesias, No Loss of Consciousness, No Dizziness, No Headache Psych: No Anxiety/Panic, No Depression Heme/Lymph: no easy bruising, no Lymphadenopathy Endocrine: No Polyuria, No Polydipsia Yes all other systems are reviewed and are negative [facility] Past Medical History Attestation statement: The following information was validated with the patient. Source: old records reviewed Medical History Abdominal discomfort History of [place] thyroiditis History of palpitations Hypothyroid Obesity Surgical History Hx of ovarian cystectomy Social History Social History Alcohol intake: never Patient Tobacco Use Status: Never used Tobacco Smoked in Last 30 Days: No Use of substances other than those prescribed or required for medical reasons: No Advance Directives: No Advance Directives Information Provided: No Patient : No Physical Exam Vital Signs: Vital Signs: Last Vital Signs Temp 98.1 F 02/24/22 19: Pulse 79 02/24/22 19:22 Resp 15 02/24/22 19:22 BP 117/65 02/24/22 19:22 Pulse Ox 100 02/24/22 14:57 O2 Del Method 02/24/22:22 BMI result Body Mass Index 40.0 Appearance: Alert. Oriented X3. Moderate distress. Eyes: Pupils equal, round and reactive to light. Sclera nonicteric. ENT: Pharynx normal. Moist mucous membranes. Neck: Normal inspection. Neck supple. CVS: Normal heart rate and rhythm. Apical pulse good pulses to extremities. Respiratory: No respiratory distress. Lung sounds clear to auscultation all lobes. Chest wall tenderness to palpation. Abdomen: Soft and nontender. No distention or rigidity. Skin: Skin warm and dry. Normal skin color. Normal skin turgor. Extremities: No lower extremity edema. Gait well-balanced well coordinated. Neuro: No motor deficit. No sensory deficit. Cranial nerves 2-12 intact. Course Course Course Narrative: 41-year-old female presents with 3 days of substernal chest pain radiating to the left chest wall, pain has been worsening since Sunday and now she does have pain on inspiration that radiates to her right shoulder. She does not have any abdominal pain to palpation, does not report nausea vomiting or fevers. She does have a significant family history of sudden cardiac in her father at age 40. Her D-dimer is positive, will order CT chest PE study and abdomen pelvis for aneurysm. 19:51 PE study is negative, patient does have some relief from the GI cocktail. Will refer to Gastroenterology for recurrent GERD, and referred to Dr. Harris for primary care. Patient verbalized understanding of and agrees to plan of care discharge home. Verbalized understanding of signs symptoms indicating need for emergent intervention. MDM - Chest Pain Differential Diagnosis Differential diagnosis: Likely pneumothorax, atypical chest pain, costochondritis and chest pain Differential diagnosis: PE, aneurysm, GERD Medical Records Data Attestation: I reviewed the patient's medical records. Lab Data Attestation: I reviewed the patient's lab results. Result diagrams: 02/24/22 15:14 02/24/22 15:14 Labs: Lab Results 02/24/22 02/24/22 02/24/22 Range/Units 15:14 15:14 15:14 WBC 9.5 (4.8-10.8) X10*3/uL RBC 3.94 L (4.20-5.50) X10*6/uL Hgb 11.5 L (12.0-16.0) g/dl Hct 35.6 L (37.0-47.0) % MCV 90.4 (80.0-98.0) fL MCH 29.2 (27.0-33.0) pg MCHC 32.3 (31.0-35.0) g/dl RDW 12.6 (11.0-16.0) % Plt Count 397 (160-400) X10*3/uL MPV 9.6 (9.4-12.3) fL Immature Gran % (Auto) 0.1 (0.0-0.4) % Neut % (Auto) 66.8 (45-73) % Lymph % (Auto) 24.3 (20-40) % Gall[place] % (Auto) 6.1 (2-11) % Eos % (Auto) 2.5 (0-4) % Baso % (Auto) 0.2 (0-2) % Lymph # (Auto) 2.3 (1.2-4.9) X10*3/uL [place] # (Auto) 0.6 (0.1-1.2) X10*3/uL Eos # (Auto) 0.2 (0.0-0.4) X10*3/uL Baso # (Auto) 0.0 (0.0-0.2) X10*3/uL Abs Immat Gran (auto) 0.01 (0.00-0.03) X10*3/uL Absolute Neuts (auto) 6.3 (2.0-8.3) x10*3/uL Absolute Nucleated RBC 0.000 (0.0-0.012) X10*3/uL Nucleated RBC % (auto) 0.0 (0.0-0.2) /100WBC D-Dimer High Sensitivty 350 NG/ML Sodium 140 (135-145) mmol/L Potassium 4.0 (3.3-5.1) mmol/L Chloride 106 (96-108) mmol/L Carbon Dioxide 23 (22-29) mmol/L Anion Gap 15 (12-20) BUN 12 (9-16) mg/dL Creatinine 0.80 (0.5-1.4) mg/dL Estim Creat Clear Calc 116.5 Estimated GFR > 60 Random Glucose 92 (60-115) mg/dL Calcium 9.1 (8.4-10.2) mg/dL Total Bilirubin 0.3 (0.0-1.0) mg/dL Direct Bilirubin < 0.2 (0.0-0.5) mg/dL AST 17 (5-31) U/L ALT 17 (0-31) U/L Alkaline Phosphatase 76 (39-117) U/L Troponin I High Sens (<3.5-17.0) ng/L Total Protein 6.8 (6.5-8.0) g/dL Albumin 3.9 (3.5-5.0) g/dL Lipase 19 (8-78) U/L 02/24/22 Range/Units 15:14 WBC (4.8-10.8) X10*3/uL RBC (4.20-5.50) X10*6/uL Hgb (12.0-16.0) g/dl Hct (37.0-47.0) % MCV (80.0-98.0) fL MCH (27.0-33.0) pg MCHC (31.0-35.0) g/dl RDW (11.0-16.0) % Plt Count (160-400) X10*3/uL MPV (9.4-12.3) fL Immature Gran % (Auto) (0.0-0.4) % Neut % (Auto) (45-73) % Lymph % (Auto) (20-40) % [place] % (Auto) (2-11) % Eos % (Auto) (0-4) % Baso % (Auto) (0-2) % Lymph # (Auto) (1.2-4.9) X10*3/uL [place] # (Auto) (0.1-1.2) X10*3/uL Eos # (Auto) (0.0-0.4) X10*3/uL Baso # (Auto) (0.0-0.2) X10*3/uL Abs Immat Gran (auto) (0.00-0.03) X10*3/uL Absolute Neuts (auto) (2.0-8.3) x10*3/uL Absolute Nucleated RBC (0.0-0.012) X10*3/uL Nucleated RBC % (auto) (0.0-0.2) /100WBC D-Dimer High Sensitivty NG/ML Sodium (135-145) mmol/L Potassium (3.3-5.1) mmol/L Chloride (96-108) mmol/L Carbon Dioxide (22-29) mmol/L Anion Gap (12-20) BUN (9-16) mg/dL Creatinine (0.5-1.4) mg/dL Estim Creat Clear Calc Estimated GFR Random Glucose (60-115) mg/dL Calcium (8.4-10.2) mg/dL Total Bilirubin (0.0-1.0) mg/dL Direct Bilirubin (0.0-0.5) mg/dL AST (5-31) U/L ALT (0-31) U/L Alkaline Phosphatase (39-117) U/L Troponin I High Sens < 3.5 (<3.5-17.0) ng/L Total Protein (6.5-8.0) g/dL Albumin (3.5-5.0) g/dL Lipase (8-78) U/L Imaging Data Chest x-ray: Attestation: I personally reviewed and interpreted this imaging study as follows: Radiologist's impression: CLINICAL INFORMATION: Chest pain. COMPARISON: 05/08/2020 chest radiographs. TECHNIQUE: 2 views of the chest were obtained. FINDINGS: No significant abnormality is noted involving the heart, lungs, mediastinum, bony thorax or soft tissues. XR/XR chest 2V IMPRESSION: No acute cardiopulmonary process. CT PE angio abdomen and pelvis: Attestation: I personally reviewed and interpreted this imaging study as follows: Radiologist's impression: FINDINGS: CTA CHEST Vascular: The main pulmonary artery, secondary and tertiary branches of the pulmonary artery are normally opacified with no evidence of pulmonary embolism. The aorta and great vessels are unremarkable. Mediastinum: No mediastinal mass. No significant lymphadenopathy. There is no pericardial effusion.? Lungs: The lungs are clear. No nodule or infiltrate. Central bronchial airways open. Fluid: There is no pericardial effusion. There is no pleural effusion. Axilla: No significant lymphadenopathy. CT SCAN ABDOMEN/PELVIS: Liver, Gallbladder and Biliary Tree: The liver is normal in size, shape, and attenuation. No focal hepatic lesion or biliary ductal dilatation is present. The gallbladder is unremarkable with no evidence of radiopaque gallstones, gallbladder wall thickening, or obvious pericholecystic inflammatory changes.? Pancreas: Unremarkable.? Spleen: Unremarkable.? Adrenal Glands: Unremarkable.? Kidneys and Ureters: Nonobstructive 5 mm stone in the upper pole of the left kidney. There is a 2 mm stone in the midpole of left kidney. No stone in the right kidney. No hydronephrosis of either kidney. No hydroureter. No ureteral calculi.? Bladder: Unremarkable.? Gastrointestinal Tract: The small and large bowel are unremarkable. The appendix is unremarkable.? Abdominal Wall: No significant hernia is appreciated.? Lymph Nodes: Normal. Vascular: Unremarkable. Pelvic Viscera: Uterus is anteverted. Lobular contour of the posterior fundus consistent with uterine fibroid. This measures about 6.5 cm transverse. Prominent right adnexal follicle/cyst measuring 2 cm. No fluid in the cul-de-sac. Osseous Structures: Unremarkable.? CT/CT angio chest PE protocol IMPRESSION: 1.? No acute pulmonary embolus. No acute change of chest. 2.? No acute abnormality of the abdomen or pelvis. 3.? Nonobstructive left renal stones. 4.? Uterine fibroid. ? ECG Data ECG #1: Attestation: I personally reviewed and interpreted this ECG as follows: ECG interpretation date: 02/24/22 ECG interpretation time: 15:00 Prior ECG tracings: available for review Interpretation: Vent. rate 69 BPM MO interval 136 ms QRS duration 88 ms QT/QTc 406/435 ms P-R-T axes 51 31 23 Normal sinus rhythm Normal ECG When compared with ECG of 22-FEB-2022 19:14, No significant change was found Scores Heart Score History: -1- moderately suspicious ECG: -0- normal Age: -0- < or = 45 Risk factory: -0- no risk factors known Troponin: -0- < or = normal limit Score: 1 Risk: 1.7% Wells PE Clinical symptoms of DVT: 3 Score: 3 2-tier Risk: likely risk (17-53%) 3-tier Risk: moderate risk (27.8%) Discharge Plan Discharge Clinical Impression: Atypical chest pain, Chronic GERD, Kidney stone Patient Disposition: Home, Self-Care Instructions: Kidney Stones (ED), Gastroesophageal Reflux Disease (ED), Noncardiac Chest Pain (ED) Additional Instructions: You were evaluated for chest pain. CT PE study indicates 2 left nonobstructing kidney stones. No indication of pulmonary embolism or aneurysm. You do have a uterine fibroid. Follow-up with gastroenterology for GERD. I have referred you to Dr. Ni. Please call and request an appointment for chronic GERD. Takes omeprazole 20 mg daily for the next 14 days. For kidney stones, drink plenty of fluids, you may consider following up with Urology if symptoms persist. I have referred you to Dr. Vivar. Dr. Salamanca phone number is the same as Dr. Quezada's. Thank you for choosing this emergency department for evaluation. Please follow-up with primary care physician as needed. Return to the emergency department for any new, concerning, or worsening symptoms. Prescriptions: No Action multivitamin Tablet 1 tab PO DAILY calcium carbonate 500 mg calcium (1,250 mg) Tablet,Chewable 500 mg PO DAILY levothyroxine 100 mcg Capsule 100 mcg PO DAILY Referrals: Tre Quezada MD [Physician] - 1 week (kidney stones) Ulises Ni MD [Physician] - 1 week (chronic gerd) Meir Harris MD [Physician] - 2 weeks (Primary care physician) Stand Alone Forms: Work/School Release Interventions: ED Discharge Assessment Last Done: 02/24/22 20:33 Discharge Date/Time: 02/24/22 20:34
[2022-02-24] MEDS: ondansetron HCL 4 MG/2 ML VIAL IVPUSH (17:15)
[2022-02-24] MEDS: Morphine Sulfate 4 MG/ML CARTRIDGE IVPUSH (17:15)
[2022-02-24 17:20] LABS: Alanine Aminotransferase 17 U/L (0-31); Albumin Level 3.9 g/dL (3.5-5.0); Alkaline Phosphatase 76 U/L (39-117); Aspartate Amino Transferase 17 U/L (5-31); Bilirubin Direct < 0.2 mg/dL (0.0-0.5); Bilirubin Total 0.3 mg/dL (0.0-1.0); Lipase 19 U/L (8-78); Total Protein 6.8 g/dL (6.5-8.0)
[2022-02-24] MEDS: iohexoL 350 MG/ML 100 ML INFUS..BTL IV (18:10)
[2022-02-24 19:22] VITALS: BP 117/65; PULSE 79; RESP 15; TEMP 36.7
[2022-02-24] MEDS: PHENobarb/Hyoscy/Atropine/Scop 10 ML ELIXIR PO (19:25)
[2022-02-24] MEDS: Magnesium Hydrox/Alum Hydrox 30 ML ORAL.SUSP PO (19:25)
[2022-02-24] MEDS: Lidocaine HCl Viscous 2 % 15 ML SOLUTION MUCOUS MEM (19:27)
[2022-02-24] MEDS: Ketorolac Tromethamine 30 MG/ML VIAL IVPUSH (19:27)
--- NOTE | 2022-02-24 20:33 | PC.NURSE ---
pt ambulates independently at time of discharge. work note provided to pt. discharge packet provided to pt at time of discharge. pt verbalized understanding of discharge plan
== END 2022-02-24 20:34 | disposition home or self-care (01) ==
PROVIDERS: Emergency Provider Student in an Organized Health Care Education/Training Program; PCP Internal Medicine
DX: R07.89 Other chest pain (principal); K21.9 Gastro-esophageal reflux disease without esophagitis; N20.0 Calculus of kidney; Z79.899 Other long term (current) drug therapy
CPT/HCPCS: 36415; 71046; 71275; 74177; 80048; 80076; 83690; 84484; 85025; 85379; 93005; 96374; 96375; 99284; J1885; J2270; J2405; Q9967

== ENCOUNTER 2022-06-25 11:15 | Emergency (ER) | payer BC, SELFPAY ==
--- NOTE | ~2022-06-25 | CT_ITS ---
EXAMINATION: CT abdomen pelvis wo IV con CLINICAL INFORMATION: Reason for Exam LLQ pain, r/o diverticulitis COMPARISON: Prior CT 02/24/2022 TECHNIQUE: Multidetector volumetric imaging was performed from the superior aspect of the liver through the pubic symphysis , noncontrasted study. Sagittal and coronal reformatted images were obtained on the technologist's workstation. This CT examination was performed using dose optimization techniques as appropriate, variously including the following: *Automated exposure control *Adjustment of mA and/or kV according to patient size (this includes techniques or standardized protocols for targeted exams where dose is matched to indication/reason for exam; i.e. extremities or head) *Use of iterative reconstruction technique DLP: 903 mGy-cm FINDINGS: LOWER THORAX: Included lung bases are clear. HEPATOBILIARY: No focal hepatic lesions. No biliary ductal dilatation. GALLBLADDER: Gallbladder unremarkable. SPLEEN: Spleen is normal in size. PANCREAS: No focal mass or ductal dilatation. STOMACH AND GASTROINTESTINAL TRACT: Stomach is grossly unremarkable. There is no bowel distention or thickening. No CT evidence of appendicitis. ADRENALS: No adrenal nodules. KIDNEYS/URETERS: There is left renal hydronephrosis due to 5 mm stone lodged in the left UPJ. There is 2 mm nonobstructing stone in the right kidney. Perinephric fat are clear on both sides. URINARY BLADDER: Partially decompressed. PELVIC VISCERA: Heterogeneous bulky uterus possibly underlying fibroids. PERITONEUM: No free air or fluid. LYMPH NODES: No lymphadenopathy. VASCULAR:Abdominal aorta normal in size, no aneurysm found. BONES, ABDOMINAL WALL AND SOFT TISSUES: Age-appropriate changes of the spine and skeletal system, no destructive osteolytic or osteosclerotic bone lesion found CT/CT abdomen pelvis wo IV con IMPRESSION: * Left renal hydronephrosis due to 5 mm stone lodged in the left UPJ. * Nonobstructing 2 mm stone in the right kidney. * Bulky heterogeneous uterus possibly underlying fibroids.
[2022-06-25 11:21] VITALS: BP 126/80; PULSE 75; O2SAT 98
[2022-06-25 11:22] VITALS: BP 141/77; PULSE 70; RESP 16; TEMP 36.6; O2SAT 100; BMI 39.1
--- NOTE | 2022-06-25 11:34 | ED_ITS ---
HPI - Abdominal Pain General Chief Complaint: Abdominal Pain Stated Complaint: ABD Pain per EMS Time Seen by Provider: 06/25/22 11:34 Source: patient and EMS Mode of arrival: EMS Limitations: no limitations History of Present Illness HPI narrative: 41-year-old female came in for evaluation of left lower quadrant abdominal pain. Pain started since 09:00 today localized to the left lower quadrant area with no radiation, patient describes the pain as constant severe 10/10 dull aching pain, associated with mild nausea but no vomiting, had a normal bowel movement 1 hour ago passing gas no blood in the bowel movement, no fever, no chills, no dysuria, no frequency urination. Past surgical history is significant for ovarian cyst removal. Related Data Home Medications Medication Instructions Recorded Confirmed calcium carbonate 500 mg calcium 500 mg PO DAILY 02/17/21 02/17/21 (1,250 mg) chewable tablet levothyroxine 100 mcg capsule 100 mcg PO DAILY 02/17/21 02/17/21 multivitamin 1 tab PO DAILY 02/17/21 02/17/21 Previous Rx's Medication Instructions Recorded oxycodone 5 mg tablet 5 mg PO Q8H PRN pain #14 tabs 06/25/22 sulfamethoxazole 800 1 tab PO BID #20 tabs 06/25/22 mg-trimethoprim 160 mg tablet (Bactrim DS) tamsulosin 0.4 mg capsule (Flomax) 0.4 mg PO DAILY #10 caps 06/25/22 Allergies Allergy/AdvReac Type Severity Reaction Status Date / Time No Known Allergies Allergy Verified 06/25/22 11:25 Review of Systems Review of Systems All other systems are reviewed and are negative Constitutional: Reports as per HPI and Reports no additional constitutional complaints Eyes: Reports as per HPI and Reports no additional eye complaints Reports system reviewed and no additional complaints, except as documented Cardiovascular: Reports as per HPI and Reports no additional cardiovascular complaints Respiratory: Reports as per HPI and Reports no additional respiratory complaints Gastrointestinal: Reports as per HPI and Reports no additional gastrointestinal complaints Genitourinary: Reports no additional female genitourinary complaints Musculoskeletal: Reports no additional musculoskeletal complaints Skin/Breast: Reports system reviewed and no additional complaints, except as docu Psychiatric: Reports no additional psychiatric complaints Endocrine: Reports no additional endocrine complaints Hematologic/Lymphatic: Reports no additional hematologic/lymphatic complaints Allergic/Immunologic: Reports no additional allergic/immunologic complaints Reports system reviewed and no additional complaints, except as documented and Reports Abnormal speech present [facility] Past Medical History Medical History Abdominal discomfort History of Galen thyroiditis History of palpitations Hypothyroid Obesity Surgical History Hx of ovarian cystectomy Social History Social History Alcohol intake: never Patient Tobacco Use Status: Never used Tobacco Advance Directives: No Advance Directives Information Provided: No Physical Exam ED Vital Signs: Vital Signs - 24 hr 06/25/22 11:22 06/25/22 14:19 Temperature 97.8 F 98.7 F Pulse Rate 70 64 Respiratory Rate 16 13 Blood Pressure 141/77 H 135/73 Pulse Oximetry 100 100 Oxygen Delivery Method Room Air Room Air BMI result Body Mass Index 39.1 Vital signs have been reviewed as appeared to be correct. Blood pressure normal. Heart rate normal. Respiration rate normal. Temperature normal. Oxygen saturation normal. Appearance: Alert. Oriented X3. No acute distress. Head: Normal external exam. Normocephalic. Atraumatic. No Forte signs noted. No raccoon eyes noted Eyes: PERRLA. EOMI. Conjunctiva and sclera normal. Eyelids normal. ENT: TM's Normal. Pharynx normal. Uvula midline. Moist mucous membranes. No trismus noted. No drooling noted. No muffled voice noted. Neck: Normal inspection. Neck supple. FROM. No adenopathy. Thyroid Normal. No meningeal signs. No neck mass noted. CVS: Normal heart rate and rhythm. Heart sound normal. No murmurs noted. Pulses normal throughout. Respiratory: No respiratory distress. Painless inspiration. Breath sounds normal. No wheezes/rales/rhonchi noted. Chest nontender. No accessory muscle usage noted or decreased air movement noted. Abdomen: Soft, obese with mild tenderness to the left lower quadrant area, no rebound tenderness, no guarding. Bowel sounds normal in all 4 quadrants. No distention noted. No organomegaly noted. No visible injury noted. Back: Left CVA tenderness. Full range of motion noted. Skin: Skin warm and dry. Normal skin color. Normal skin turgor. No rashes/lesions/lacerations noted. Extremities: No lower extremity edema. Extremities exhibit normal range of motion. Extremities nontender. Neuro: Oriented X 3. Cranial nerve exam: II-XII are grossly intact No motor deficit. No sensory deficit. Reflexes normal. Course Course Course Narrative: Left-sided abdominal/left flank pain due to 5 mm UPJ stone, patient also is showing a UTI on the UA. Pain under better control with Dilaudid and morphine in the ED. The case discussed with Dr. Radha Baker who recommended to discharge the patient home on Bactrim oxycodone and Flomax and see her in the office this week the plan was discussed with the patient and patient fully understood the instruction. Medical Decision Making Differential Diagnosis Differential Diagnoses: The differential diagnosis associated with the presentation includes (Kidney stone, colitis, diverticulitis, perforated viscus) Consult Healthcare Provider Management of the patient was discussed with: [employer] (Olivia) Lab Data MDM Lab Attestation statement: I reviewed the patient's lab results. 06/25/22 12:00 06/25/22 12:00 Labs: Lab Results 06/25/22 06/25/22 06/25/22 Range/Units 12:00 12:00 14:16 WBC 8.6 (4.8-10.8) X10*3/uL RBC 4.34 (4.20-5.50) X10*6/uL Hgb 12.4 (12.0-16.0) g/dl Hct 38.9 (37.0-47.0) % MCV 89.6 (80.0-98.0) fL MCH 28.6 (27.0-33.0) pg MCHC 31.9 (31.0-35.0) g/dl RDW 13.5 (11.0-16.0) % Plt Count 336 (160-400) X10*3/uL MPV 9.5 (9.4-12.3) fL Immature Gran % (Auto) 0.2 (0.0-0.4) % Neut % (Auto) 70.0 (45-73) % Lymph % (Auto) 21.5 (20-40) % [place]han % (Auto) 6.5 (2-11) % Eos % (Auto) 1.6 (0-4) % Baso % (Auto) 0.2 (0-2) % Lymph # (Auto) 1.8 (1.2-4.9) X10*3/uL [place]han # (Auto) 0.6 (0.1-1.2) X10*3/uL Eos # (Auto) 0.1 (0.0-0.4) X10*3/uL Baso # (Auto) 0.0 (0.0-0.2) X10*3/uL Abs Immat Gran (auto) 0.02 (0.00-0.03) X10*3/uL Absolute Neuts (auto) 6.0 (2.0-8.3) x10*3/uL Absolute Nucleated RBC 0.000 (0.0-0.012) X10*3/uL Nucleated RBC % (auto) 0.0 (0.0-0.2) /100WBC Sodium 138 (135-145) mmol/L Potassium 4.2 (3.3-5.1) mmol/L Chloride 107 (96-108) mmol/L Carbon Dioxide 21 L (22-29) mmol/L Anion Gap 14 (12-20) BUN 11 (9-16) mg/dL Creatinine 0.78 (0.5-1.4) mg/dL Estim Creat Clear Calc 122.1 Estimated GFR > 60 Random Glucose 92 (60-115) mg/dL Calcium 8.9 (8.4-10.2) mg/dL Total Bilirubin 0.5 (0.0-1.0) mg/dL Direct Bilirubin 0.2 (0.0-0.5) mg/dL AST 16 (5-31) U/L ALT 16 (0-31) U/L Alkaline Phosphatase 76 (39-117) U/L Total Protein 6.6 (6.5-8.0) g/dL Albumin 4.0 (3.5-5.0) g/dL Lipase 17 (8-78) U/L Urine Color Red A Urine Appearance Turbid Urine pH 5.5 (5.0-9.0) Ur Specific Anderson 1.015 (1.005-1.025) Urine Protein 100 (2+) H (Neg-Trace) mg/dL Urine Glucose (UA) Negative (Negative) mg/dL Urine Ketones Negative (Negative) mg/dL Urine Blood Large (3+) H (Negative) Urine Nitrite Negative (Negative) Ur Leukocyte Esterase Small (1+) H (Negative) Urine RBC >20 H (0-2) /HPF Urine WBC 11-20 H (0-5) /HPF Ur Squamous Epith Cells 0-2 (0-2) /HPF Urine Bacteria None Seen (None Seen) Hyaline Casts 0-2 (0-2) /LPF Independent Interpretation I performed an independent interpretation of an: CT Scan (Abdomen and pelvis: 5 mm stone lodged in the left UPJ.) Radiology Impression Discussion of test interpretation with radiology: I have reviewed the radiologist's reading. Medications Administered Discontinued Medications Generic Name Dose Route Start Last Admin Trade Name Freq PRN Reason Stop Dose Admin Sodium Chloride 1,000 mls @ 999 mls/hr 06/25/22 11:38 06/25/22 12:02 Ns IV 06/25/22 12:38 999 mls/hr .Q1H1M ONE Administration Morphine Sulfate 4 mg 06/25/22 11:38 06/25/22 12:05 Morphine Sulfate 4 Mg/Ml Cartridge IVPUSH 06/25/22 11:39 4 mg ONCE ONE Administration Protocol Ondansetron HCl 4 mg 06/25/22 11:38 06/25/22 12:05 Ondansetron Hcl 4 Mg/2 Ml Vial IVPUSH 06/25/22 11:39 4 mg ONCE ONE Administration Discharge Plan Discharge Clinical Impression: Calculus of kidney, UTI (urinary tract infection) Patient Disposition: Home, Self-Care Instructions: Kidney Stones (ED) Prescriptions: New sulfamethoxazole-trimethoprim [Bactrim DS] 800-160 mg tablet 1 tab PO BID Qty: 20 0RF tamsulosin [Flomax] 0.4 mg capsule 0.4 mg PO DAILY Qty: 10 0RF oxycodone 5 mg tablet 5 mg PO Q8H PRN (Reason: pain) Qty: 14 0RF Rx Instructions: Partial Fill upon patient request. No Action multivitamin Tablet 1 tab PO DAILY calcium carbonate 500 mg calcium (1,250 mg) Tablet,Chewable 500 mg PO DAILY levothyroxine 100 mcg Capsule 100 mcg PO DAILY Referrals: Radha Baker MD [Physician] - Shiva Willingham MD [Primary Care Provider] -
[2022-06-25] MEDS: 0.9 % Sodium Chloride 1,000 ML 999 ML IV (12:02)
[2022-06-25 12:03] LABS: MANUAL DIFF FLAG NO
[2022-06-25 12:04] LABS: Basophils Percent Auto 0.2 % (0-2); Eosinophils Absolute Auto 0.1 X10*3/uL (0.0-0.4); Eosinophils Percent Auto 1.6 % (0-4); Hematocrit 38.9 % (37.0-47.0); Hemoglobin 12.4 g/dl (12.0-16.0); Imm Gran Abs Auto 0.02 X10*3/uL (0.00-0.03); Imm Gran Pct Auto 0.2 % (0.0-0.4); Lymphocytes Absolute Auto 1.8 X10*3/uL (1.2-4.9); Lymphocytes Percent Auto 21.5 % (20-40); Mean Corpuscular HGB Conc 31.9 g/dl (31.0-35.0); Mean Corpuscular Hemoglobin 28.6 pg (27.0-33.0); Mean Corpuscular Volume 89.6 fL (80.0-98.0); Mean Platelet Volume 9.5 fL (9.4-12.3); Monocytes Absolute Auto 0.6 X10*3/uL (0.1-1.2); Monocytes Percent Auto 6.5 % (2-11); Platelet Count 336 X10*3/uL (160-400); Red Blood Count 4.34 X10*6/uL (4.20-5.50); Red Cell Distribution Width 13.5 % (11.0-16.0); White Blood Count 8.6 X10*3/uL (4.8-10.8)
[2022-06-25] MEDS: Morphine Sulfate 4 MG/ML CARTRIDGE IVPUSH (12:05)
[2022-06-25] MEDS: ondansetron HCL 4 MG/2 ML VIAL IVPUSH (12:05)
--- NOTE | 2022-06-25 12:13 | PC.NURSE ---
Alert and oriented, resp even and unlabored. IV established, labs drawn and sent. Medicated per the JUN, awaiting ct scan results
[2022-06-25 12:29] LABS: Alanine Aminotransferase 16 U/L (0-31); Alkaline Phosphatase 76 U/L (39-117); Anion Gap 14 (12-20); Aspartate Amino Transferase 16 U/L (5-31); Bilirubin Direct 0.2 mg/dL (0.0-0.5); Bilirubin Total 0.5 mg/dL (0.0-1.0); Blood Urea Nitrogen 11 mg/dL (9-16); Calcium 8.9 mg/dL (8.4-10.2); Carbon Dioxide 21 mmol/L (22-29); Chloride 107 mmol/L (96-108); Creatinine Clr Calc Pharmacy 122.1; Estimated Glomerular Filt Rate > 60; Glucose Random 92 mg/dL (60-115); Lipase 17 U/L (8-78); Potassium 4.2 mmol/L (3.3-5.1); Sodium 138 mmol/L (135-145); Total Protein 6.6 g/dL (6.5-8.0)
[2022-06-25 14:19] VITALS: BP 135/73; PULSE 64; RESP 13; TEMP 37.1; O2SAT 100
[2022-06-25 14:36] LABS: Appearance Urine Turbid; Color Urine Red; Glucose Urine UA Negative (Negative); Leukocyte Esterase Urine Small (1+) (Negative); Nitrite Urine Negative (Negative); PH 5.5 (5.0-9.0); Specific Gravity - Urine 1.015 (1.005-1.025); UMIC TRIGGER UACC YES; Urine Blood Large (3+) (Negative); Urine Ketones Negative (Negative); Urine Protein 100 (2+) mg/dL (Neg-Trace)
[2022-06-25 14:40] LABS: Bacteria Urine None Seen (None Seen); Hyaline Casts Urine 0-2 /LPF (0-2); RBC Urine >20 /HPF (0-2); Squamous Epithelial Cell Urine 0-2 /HPF (0-2); UACC Culture Trigger YES
[2022-06-25] MEDS: Morphine Sulfate 2 MG/ML CARTRIDGE IVPUSH (15:25)
== END 2022-06-25 15:35 | disposition home or self-care (01) ==
PROVIDERS: Emergency Provider Emergency Medicine; PCP Internal Medicine
DX: N20.0 Calculus of kidney (principal); N39.0 Urinary tract infection, site not specified; Z79.899 Other long term (current) drug therapy
CPT/HCPCS: 36415; 74176; 80048; 80076; 81001; 83690; 85025; 87086; 96361; 96374; 96375; 96376; 99285; J2270; J2405

== ENCOUNTER → 2022-07-06 14:02 | Outpatient (BNVA) | payer BC, SELFPAY | PROVIDERS: PCP Internal Medicine; Visit Provider Urology | DX: Z13.89 Encounter for screening for other disorder (principal) ==

== ENCOUNTER 2022-07-14 14:33 | Outpatient (REF) | payer BC, SELFPAY ==
--- NOTE | ~2022-07-14 | US_ITS ---
EXAMINATION: US RETROPERITONEAL COMPLETE (RENAL) CLINICAL INFORMATION: Unspecified hydronephrosis. COMPARISON: CT abdomen and pelvis 06/25/2022. TECHNIQUE: Real-time imaging of the kidneys and bladder. FINDINGS: RIGHT KIDNEY: 11.9 x 4.7 x 4.7 cm (SAG x AP x TRV). The kidney is normal in size, contour, and echogenicity. Renal cortical thickness is normal. No calculi or focal parenchymal lesions. No hydronephrosis. LEFT KIDNEY: 12.3 x 5.3 x 5.2 cm (SAG x AP x TRV). The kidney is normal in size, contour, and echogenicity. Renal cortical thickness is normal. No focal parenchymal lesions or hydronephrosis. At the lower pole, a 1.0 cm in maximal diameter nonobstructing calculus is seen, with twinkle artifact. BLADDER: Well distended and normal. Bilateral ureteral jets are demonstrated. Prevoid bladder volume is 195 mL. Postvoid bladder volume is 6 mL. US/US retroperitoneal comp IMPRESSION: A 1.0 cm nonobstructing left renal calculus is seen. No further urinary calculus is seen bilaterally, and there is no bilateral hydronephrosis.
== END 2022-07-14 14:34 | disposition home or self-care (01) ==
LOC: HO.US 14:33
PROVIDERS: PCP Internal Medicine; Visit Provider Urology
DX: N13.30 Unspecified hydronephrosis (principal); N20.1 Calculus of ureter
CPT/HCPCS: 76770

== ENCOUNTER → 2022-08-02 13:25 | Outpatient (BNVA) | payer BC, SELFPAY | PROVIDERS: PCP Internal Medicine; Visit Provider Urology | DX: Z13.89 Encounter for screening for other disorder (principal) ==

== ENCOUNTER 2022-08-21 11:50 | Outpatient (REF) | payer BC, SELFPAY ==
[2022-08-21 13:41] LABS: TSH reflex Free T4 2.13 uIU/mL (0.32-4.0)
== END 2022-08-21 11:51 | disposition home or self-care (01) ==
LOC: HO.LNP 11:50
PROVIDERS: Visit Provider Internal Medicine
DX: E03.9 Hypothyroidism, unspecified (principal)
CPT/HCPCS: 84443

== ENCOUNTER 2022-09-27 10:32 | Day surgery (SDC) | payer BC, SELFPAY ==
[2022-09-25 15:32] VITALS: BMI 41.3
--- NOTE | 2022-09-26 11:07 | HO.ANESPROP2 ---
Documented by User: Phyllis Azar NP 09/26/22 11:09 HPI - Anesthesia Eval Consult details Narrative: 41yo F for Left Lithotripsy ESW PMFSH Active Problems Active Problems: All Active Problems (Updated 09/25/22 @ 15:36 by Joselyn Whaley RN) Hydronephrosis (Acute) Left ureteral calculus (Acute) Gross hematuria (Acute) Past Medical History Medical History Abdominal discomfort History of Galen thyroiditis History of palpitations Hx of Helicobacter infection Hypothyroid Left knee pain Obesity Surgical History Surgical History History of esophagogastroduodenoscopy (EGD) Hx of ovarian cystectomy Social History Social History Household Members: Friend(s) Housing: Apartment Alcohol intake: never Patient Tobacco Use Status: Never used Tobacco Use of substances other than those prescribed or required for medical reasons: No Have you been hit, kicked, punched, or otherwise hurt by someone within the past year? If so, by whom?: No Are you DNR?: No Advance Directives: No Advance Directives Information Provided: Yes Advance Directives on File: No Recently lost weight without trying: No Nutrition Risks: No Nutritional Risk Patient : No FDLMP: 09/14/2022 Poor oral hygiene: No Meds Allergies Allergy/AdvReac Type Severity Reaction Status Date / Time No Known Allergies Allergy Verified 09/25/22 15:31 Home Medications Medication Instructions Recorded Confirmed Last Taken Type levothyroxine 50 mcg tablet 100 mcg PO DAILY 07/06/22 09/25/22 09/27/22 History Exam Exam Date and Time: September 26, 2022 1107 Height,Weight and Vital Signs: Height 5 ft 6 in Weight 116.12 kg Pertinent Lab Results Pertinent Lab Results: Laboratory Tests 06/25/22 06/25/22 12:00 12:00 WBC 8.6 Hgb 12.4 Hct 38.9 Plt Count 336 Sodium 138 Potassium 4.2 Chloride 107 Carbon Dioxide 21 L BUN 11 Creatinine 0.78 Narrative Narrative: EKG 02/2022 Vent. Rate : 069 BPM ? ? Atrial Rate : 069 BPM ?? P-R Int : 136 ms? QRS Dur : 088 ms ? ? QT Int : 406 ms ? ? ? P-R-T Axes : 051 031 023 degrees ?? QTc Int : 435 ms ? Normal sinus rhythm Normal ECG When compared with ECG of 22-FEB-2022 19:14, Heart rate has decreased Assessment and Plan Assessment Anesthesia Assessment: Chart Reviewed Documented by User: Manasa Mosqueda MD 09/27/22 12:52 HPI - Anesthesia Eval Consult details Narrative: 41yo F for Left ESWL PMFSH Active Problems Active Problems: All Active Problems (Updated 09/27/22 @ 12:12 by Manasa Mosqueda MD) Hydronephrosis (Acute) Left ureteral calculus (Acute) Gross hematuria (Acute) Morbid Obesity BMI 41.3 Denies ONIEL Past Medical History Medical History Abdominal discomfort History of Galen thyroiditis History of palpitations Hx of Helicobacter infection Hypothyroid Left knee pain Obesity Family History Family history of problems with anesthesia: No Surgical History Surgical History History of esophagogastroduodenoscopy (EGD) Hx of ovarian cystectomy History of Problems with Anesthesia: No Social History Social History Household Members: Friend(s) Housing: Apartment Alcohol intake: never Patient Tobacco Use Status: Never used Tobacco Use of substances other than those prescribed or required for medical reasons: No Have you been hit, kicked, punched, or otherwise hurt by someone within the past year? If so, by whom?: No Are you DNR?: No Advance Directives: No Advance Directives Information Provided: Yes Advance Directives on File: No Recently lost weight without trying: No Nutrition Risks: No Nutritional Risk Patient : No FDLMP: 09/14/2022 Poor oral hygiene: No Meds Allergies Allergy/AdvReac Type Severity Reaction Status Date / Time No Known Allergies Allergy Verified 09/25/22 15:31 Home Medications Medication Instructions Recorded Confirmed Last Taken Type levothyroxine 50 mcg tablet 100 mcg PO DAILY 07/06/22 09/25/22 09/27/22 History Exam Height,Weight and Vital Signs: Height 5 ft 6 in Weight 116.12 kg Vital Signs Temp Pulse Resp BP Pulse Ox O2 Del Method 09/27/22 12:11 96.9 F 63 18 124/76 98 Room Air Pertinent Lab Results Pertinent Lab Results: Laboratory Tests 06/25/22 06/25/22 12:00 12:00 WBC 8.6 Hgb 12.4 Hct 38.9 Plt Count 336 Sodium 138 Potassium 4.2 Chloride 107 Carbon Dioxide 21 L BUN 11 Creatinine 0.78 Lab Results 09/27/22 Range/Units 11:20 Urine Test NEGATIVE (NEGATIVE) Airway Mallampati Class: II TM Dist: >3cm Neck ROM: Full Loose/Missing/Broken Teeth: Yes (Some extractions-3, denies broken or loose teeth) Heart: RRR Lungs: CTAB Assessment and Plan Assessment Anesthesia Assessment: Anesthesia Plan Discussed Final Anesthetic Review Family History of Problems with Anesthesia: No History of Problems with Anesthesia: No NPO: Yes ASA Class: III Final Preanesthetic Review: No Changes in Pt Med Stat, Meds/Allgs Chart Reviewed, Consent Obtained/Reviewed and Anes Risks/Benef Reviewed Patient Risk: Intermediate Procedure Risk: Low Assessment/Block/Sedation in SS: Assess/Block/Sedation-SS Anesthetic Plan Anesthetic Plan: GA Disposition: Standard PACU
[2022-09-27] VITALS (9 sets, daily range): BP systolic 124–141; BP diastolic 76–90; PULSE 53–76; RESP 14–18; TEMP 36.1–36.8; O2SAT 95–100
--- NOTE | ~2022-09-27 | XR_ITS ---
EXAMINATION: XR ABDOMEN KUB CLINICAL INDICATION: Left kidney stone COMPARISON: Renal ultrasound 07/14/2022, CT abdomen pelvis 06/25/2022 TECHNIQUE: AP view of the abdomen. FINDINGS: The bowel gas pattern is normal with no evidence of ileus or obstruction. No unusual soft tissue calcifications are noted. The previously seen stone at the left ureteropelvic junction cannot be said to be seen with certainty on this exam. There is a vague density seen at the L2-L3 interspace but I cannot ascertain that this is a stone. The bones are unremarkable. XR/XR KUB IMPRESSION: The previously seen left ureteropelvic junction stone cannot be seen with certainty on this study. No definite calculi are detected on this plain film study.
--- NOTE | 2022-09-27 08:01 | MHC.SHP ---
Pre-Procedural Eval Section A Date of Service: 09/27/22 The patient is an INPATIENT: No The History & Physical has been completed within 30 days and I have reviewed it.: No Section B Chief Complaint: Calculus of kidney, left Details of Present Illness: 41 year old female with bilateral nephrolithiasis, Left>right, discussed treatment plan for ESWL. Relevant Family History (Specify if Yes): No Relevant Social History: None Present Medications: see Short Stay Collaborative assessment Allergies: Allergies Allergy/AdvReac Type Severity Reaction Status Date / Time No Known Allergies Allergy Verified 09/25/22 15:31 Review of Systems Review of Systems Comment: 10 point ROS negative other than stated in HPI Exam Surgical H&P Exam: Normal: HEENT, Normal: Heart, Normal: Lungs, Normal: Skin and Normal: Neurological Plan Diagnosis/Plan: Unchanged I have reviewed the history and physical and performed a pertinent physical examination on my patient. No changes have occurred unless specified. Left ESWL. Discussed risks to include but not limited to, blood in the urine, bruising to the skin, kidney hematoma, possible need for another procedure if a stone fragment obstructs the ureter while passing, possible need to repeat procedure if stone is not completely fragmented. Time Spent With Patient Time: Total time managing care of this patient today ____ minutes.
[2022-09-27 11:54] LABS: UPreg QC Valid YES; Urine Pregnancy NEGATIVE (NEGATIVE)
[2022-09-27] MEDS: Lactated Ringers 1,000 ML 100 ML IVCONT (12:03)
--- NOTE | 2022-09-27 13:16 | W.PM.OPN ---
Operative Note Operative Note Date of Service: 09/27/22 Narrative: PreOperative Diagnosis:? ? Left proximal ureteral stone Post Operative Diagnosis:?Left proximal ureteral stone Procedure:?Left? ESWL Surgeon:?Dr Radha Baker Anesthesia:? General Indications for procedure: The patient understands ESWL may be a staged procedure and subsequent intervention may be required based on imaging after ESWL.? They also understand? there is a risk of bleeding to the kidney, infection, damage to adjacent organs, and stone migration following the procedure. - Imaging Fluoscopy 7 x 6 mm proximal left ureteral stone Procedure: After informed consent was verified the patient was brought to the operating room and placed in a supine position.? Anesthesia was performed per protocol. Safety pause time-out was performed. Imaging was displayed in the room and laterality confirmed. ESWL was performed.?The stone was visualized on fluoroscopy only.? Shockwave lithotripsy was performed, the first 300 shocks at 60 hertz.? A total of 2500 were used. The first 500 shocks at power 1-17, the next 1500 shocks at power of 18 and the last 500 shocks to a maximum of power of 20 with a maximum rate of 120 hertz.? Some fragmentation of the stone was appreciated. The patient tolerated the procedure well and was transferred to the recovery area upon completion. Complications: None
== END 2022-09-27 15:30 | disposition home or self-care (01) ==
PROVIDERS: Nurse Practitioner; PCP Internal Medicine; Visit Provider Urology
PROC: (CPT 50590; principal; 2022-09-27 12:10)
DX: N20.0 Calculus of kidney (principal); N20.1 Calculus of ureter; E06.3 Autoimmune thyroiditis; E03.9 Hypothyroidism, unspecified; R31.0 Gross hematuria; E66.01 Morbid (severe) obesity due to excess calories; Z68.41 Body mass index [BMI] 40.0-44.9, adult; Z79.899 Other long term (current) drug therapy
CPT/HCPCS: 50590; 74018; 81025; J0131; J0690; J2250; J2405; J3010

== ENCOUNTER 2022-10-02 11:18 | Outpatient (AMB) | payer BC, SELFPAY ==
--- NOTE | 2022-10-02 11:35 | MHC.OFFVIS ---
Intake Intake Visit Reasons: 1w/post op Intake Note: Patient presents today for a follow-up on 1 week post op Meds: None Antibiotic: None Blood Thinner: None Concierge Manager Required: No Accompanied by: Self / Same As Patient Allergies No Known Allergies Allergy (Verified 11/10/22 10:23) Medication List - Last Reconciled 10/02/22 by Radha Baker MD levothyroxine 100 mcg PO DAILY oxycodone-acetaminophen 5-325 mg (Percocet) 1 tab PO Q6H PRN pyridoxine (vitamin B6) 100 mg PO DAILY tamsulosin (Flomax) 0.4 mg PO BEDTIME HPI HPI Comments History of Present Illness Details Dee is a 41-year-old female who presents to the office s/p left ESWL. 10/02/22-- The patient underwent the left ESWL on 09/27/22 for left proximal ureteral stone. States passing mir particles in the urine along with trace blood post the procedure. Evaluation today-- Blood; ?200 Faraz/uL, leukocytes: negative. 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 Discussed 24 hour urine results: Total volume 1.76 L, Calcium 805 mg; Oxalate 50 mg, Sodium 366, Citrate 3029 mg. Instructed on importance of fluid intake, Low oxalate diet, low sodium diet. Plan: Discussed to consume adequate amount of water. Discussed not to consume calcium supplements and food containing calcium. Discussed Low oxalate diet---green leafy vegetable, nuts, and tea in moderation as they are rich in oxalate. Renal calculi prevention diet sheet was provided. Parathyroid fasting blood work was ordered. Repeat 24-hour urine collection test results after 3-4 months. CAT scan to be done when the patient is back in [place] was ordered. Flomax 0.4 mg for 10 day was ordered. Instructed to take it at bedtime. [facility] Medical History Abdominal discomfort History of Galen thyroiditis History of palpitations Hx of Helicobacter infection Hypothyroid Left knee pain Obesity Surgical History History of esophagogastroduodenoscopy (EGD) Hx of ovarian cystectomy Social History Household Members: Friend(s) Housing: Apartment Are you a primary aged or disabled carer to a significant other at home: No Do you presently have visiting nurse or other home services: No Alcohol intake: never Patient Tobacco Use Status: Never used Tobacco Results AMB Urinalysis, Automated UA Leukoctes 0 Emeterio/uL Last Edit by ABRIL Waterman on 10/02/22 11:40 UA Nitrite Negative Last Edit by Barbara Godwin Ernesto on 10/02/22 11:40 UA Urobilinogen 0 mg/dL Last Edit by Barbara Godwin Ernesto on 10/02/22 11:40 UA Protein 15 mg/dL Last Edit by Barbara Godwin Ernesto on 10/02/22 11:40 UA pH 6.0 Last Edit by Barbara Godwin Ernesto on 10/02/22 11:40 UA Blood 200 Faraz/uL Last Edit by Barbara Godwin Ernesto on 10/02/22 11:40 UA Specific [place] 1.025 Last Edit by Barbara Godwin [facility] on 10/02/22 11:40 UA Ketone Negative Last Edit by ABRIL Waterman on 10/02/22 11:40 UA Bilirubin 0 mg/dL Last Edit by Barbara Godwin Ernesto on 10/02/22 11:40 UA Glucose 0 mg/dL Last Edit by Barbara Godwin Ernesto on 10/02/22 11:40 Results Reviewed Results Reviewed: Laboratory Last Values Urine pH (Auto) 6.0 10/02/22 11:35 Specific [place] (Auto) 1.025 10/02/22 11:35 Urine Protein (Auto) 15 mg/dL 10/02/22 11:35 Glucose (UA)(Auto) 0 mg/dL 10/02/22 11:35 Urine Ketones (Auto) Negative 10/02/22 11:35 Urine Blood (Auto) 200 Faraz/uL 10/02/22 11:35 Urine Nitrite (Auto) Negative 10/02/22 11:35 Urine Bilirubin (Auto) 0 mg/dL 10/02/22 11:35 Urine Urobilinogen (Auto) 0 mg/dL 10/02/22 11:35 Leukocyte Esterase (Auto) 0 Emeterio/uL 10/02/22 11:35 Assessment & Plan Assessment & Plan (1) Left ureteral calculus: Code(s): N20.1 - Calculus of ureter (2) Hypercalciuria: Code(s): R82.994 - Hypercalciuria (3) Hyperoxaluria: Code(s): R82.992 - Hyperoxaluria Plan Discussed to consume adequate amount of water. Discussed not to consume calcium supplements and food containing calcium. Discussed Low oxalate diet---green leafy vegetable, nuts, and tea in moderation as they are rich in oxalate. Renal calculi prevention diet sheet was provided. Parathyroid fasting blood work was ordered. Repeat 24-hour urine collection test results after 3-4 months. CAT scan to be done when the patient is back in [place] was ordered. Flomax 0.4 mg for 10 day was ordered. Instructed to take it at bedtime. Orders: Orders Parathyroid Hormone Related Pr 10/02/22 R82.994 - Hypercalciuria Magnesium 10/02/22 R82.994 - Hypercalciuria Vitamin D 25-OH (D2 and D3) 10/02/22 N20.0 - Calculus of kidney CT abdomen pelvis wo IV con 10/02/22 N20.1 - Calculus of ureter AMB Urinalysis Automated 10/02/22 Z13.9 - Encounter for screening, unspecified Medications: New tamsulosin (Flomax) 0.4 mg PO BEDTIME 10 caps 0RF to help pass kidney stone fragments pyridoxine (vitamin B6) 100 mg PO DAILY 90 tabs 3RF Patient Instructions: The patient had an opportunity to ask questions regarding treatment plan. All questions were answered. Imaging, Laboratory studies and physical exam results were discussed and reviewed in detail. No major barriers to understanding were identified. The patient expressed understanding and agreement with the above treatment plan. The patient is aware they should contact our office by phone for worsening of their current condition or the appearance of new symptoms. Compliance is encouraged with any medications and followup testing that is ordered. It is a privilege to be allowed the opportunity to participate in the urologic care of your patient. If you have any questions or concerns regarding treatment for the above conditions please do not hesitate to contact me. The office telephone contact is [phone]. This note is constructed in part using voice recognition software. While every effort has been made to ensure accuracy fuel truck driver errors may have been included. Yours sincerely, Radha Baker MD Coding Level of Care Code Global (80999) Diagnoses Left ureteral calculus N20.1 Hypercalciuria R82.994 Hyperoxaluria R82.992
== END 2022-10-02 13:14 | disposition home or self-care (01) ==
LOC: HO.HUSH 11:18
PROVIDERS: PCP Internal Medicine; Visit Provider Urology
DX: N20.1 Calculus of ureter (principal); R82.994 Hypercalciuria; R82.992 Hyperoxaluria; N20.0 Calculus of kidney
CPT/HCPCS: 99024

== ENCOUNTER → 2022-10-02 11:18 | Outpatient (BNVA) | payer BC, SELFPAY | PROVIDERS: PCP Internal Medicine; Visit Provider Urology ==

== ENCOUNTER 2022-11-07 10:13 | Outpatient (REF) | payer BC, SELFPAY ==
--- NOTE | ~2022-11-07 | CT_ITS ---
EXAMINATION: CT ABDOMEN AND PELVIS WITHOUT CONTRAST CLINICAL INFORMATION: Ureteral stone COMPARISON: Previous CT scans of the abdomen and pelvis June 2022 and February 2014 and [facility] September 2022 TECHNIQUE: Multidetector volumetric imaging was performed from the superior aspect of the liver through the pubic symphysis. Sagittal and coronal reformatted images were obtained on the technologist's workstation. This CT examination was performed using dose optimization techniques as appropriate, variously including the following: *Automated exposure control *Adjustment of mA and/or kV according to patient size (this includes techniques or standardized protocols for targeted exams where dose is matched to indication/reason for exam; i.e. extremities or head) *Use of iterative reconstruction technique DLP: 715 mGy-cm FINDINGS: LUNG BASES: The visualized lung bases are unremarkable. LIVER, GALLBLADDER, AND BILIARY TREE: The liver is normal in size, shape, and attenuation. No focal hepatic lesion or biliary ductal dilatation is present. The gallbladder is unremarkable with no evidence of radiopaque gallstones, gallbladder wall thickening, or obvious pericholecystic inflammatory changes. PANCREAS: Unremarkable. SPLEEN: Unremarkable. ADRENAL GLANDS: Unremarkable. KIDNEYS AND URETERS: 2 small left renal stones measuring 1 mm the upper pole and 2 mm in the lower pole. No hydronephrosis or ureteral dilatation. Left distal ureter not well visualized due to mass effect from the probable enlarged fibroid uterus. No ureteral stone seen. BLADDER: Bladder is empty and not well evaluated GASTROINTESTINAL TRACT: The small and large bowel are unremarkable. The appendix is unremarkable. ABDOMINAL WALL: No significant hernia is appreciated. LYMPH NODES: Normal. VASCULAR: Unremarkable. PELVIC VISCERA: Enlarged uterus with lobulated contour probably representing fibroids. This is similar to previous exams. OSSEOUS STRUCTURES: Unremarkable. CT/CT abdomen pelvis wo IV con IMPRESSION: Small left renal stones. No hydronephrosis, ureteral dilatation or ureteral stone seen. Enlarged lobulated uterus probably representing fibroids. This could be better assessed with ultrasound. Fleischner guidelines were followed.
[2022-11-07 11:52] LABS: Magnesium 2.1 mg/dL (1.6-2.6)
[2022-11-12 16:42] LABS: Vitamin D 25-OH, D2 <4 ng/mL; Vitamin D 25-OH, D3 23 ng/mL; Vitamin D 25-OH, Total 23 ng/mL (30-100)
[2022-11-20 17:49] LABS: Parathyroid Hormone Related Pr 11 pg/mL (11-20)
== END 2022-11-07 10:14 | disposition home or self-care (01) ==
LOC: HO.CT 10:13
PROVIDERS: PCP Internal Medicine; Visit Provider Urology
DX: N20.1 Calculus of ureter (principal); N20.0 Calculus of kidney; R82.994 Hypercalciuria
CPT/HCPCS: 36415; 74176; 82306; 83519; 83735

== ENCOUNTER 2022-11-10 10:16 | Outpatient (AMB) | payer BC, SELFPAY ==
--- NOTE | 2022-11-10 06:52 | A.OFFVIS_ITS ---
Intake Intake Visit Reasons: Calculus of kidney, left-follow up/CT Intake Note: Patient presents today for a follow-up on Calculus Of Kidney & CT Scan Results: Meds- Vitamin B6 & Tamsulosin Allergies to Antibiotic- No Known Allergies Blood Thinner- None [employer] Required: No Accompanied by: Self / Same As Patient Allergies No Known Allergies Allergy (Verified 11/10/22 10:23) HPI HPI Comments History of Present Illness Details Dee is a 41-year-old female who presents today to the office for follow up CT and calculus of the left kidney. 11/10/2022-- She was last seen by me on 10/02/2022. She has a history of kidney stones.? She states that while she was in [place], she had urinary tract infection symptoms and felt like passing a stone fragments. She states that she did pass a stone. She reports that the symptoms have been resolved at this time. Discussed 24 hour urine results: Total volume 1.76 L, Calcium 805 mg; Oxalate? 50 mg, Sodium 366, Citrate? 3029 mg.? Instructed on importance of fluid intake, Low oxalate diet, low sodium diet. She has had left ESWL done on 09/27/2022. She had a CAT scan done on 11/07/2022. Official results were not available.? She also had blood work including PTH done on -11/07/2022. I reviewed the CAT scan result-official supreme court justice was not provided by the radiologist. I reviewed the films with her and noted obstructive left ureter stone was no longer visualized, however; I can see too tiny 1-2mm fragments in the left kidney at this time.? Plan Discussed with the patient that the blood work including PTH is still pending. Tele-health follow-up in 4 weeks for blood work and stone analysis, and continue to monitor the kidney. Follow up in 6-months. [facility] Medical History Abdominal discomfort History of Galen thyroiditis History of palpitations Hx of Helicobacter infection Hypothyroid Left knee pain Obesity Surgical History History of esophagogastroduodenoscopy (EGD) Hx of ovarian cystectomy Social History Household Members: Friend(s) Housing: Apartment Are you a primary inspector health care facilities to a significant other at home: No Do you presently have visiting nurse or other home services: No Alcohol intake: never Patient Tobacco Use Status: Never used Tobacco Review of Systems Const All systems reviewed & are unremarkable except as noted in HPI and below Reports no additional complaints Eyes Reports no additional complaints ENT Reports no additional complaints Card Denies dyspnea Resp Denies cough and Denies dyspnea GI Reports no additional complaints Reports no additional complaints Musc Reports no additional complaints Skin/Breast Denies rash and Denies unusual bruising Neuro Reports no additional complaints Psych Reports no additional complaints Endo Reports no additional complaints Brian/Lymph Reports no additional complaints Aller/Immun Reports no additional complaints Results Reviewed Results Reviewed: Laboratory Last Values Stone Source Cancelled 11/10/22 11:59 Stone Weight Cancelled 11/10/22 11:59 Stone Constituent 1 Cancelled 11/10/22 11:59 Assessment & Plan Assessment & Plan (1) Calculus of kidney: Code(s): N20.0 - Calculus of kidney (2) Hypercalciuria: Code(s): R82.994 - Hypercalciuria (3) Hyperoxaluria: Code(s): R82.992 - Hyperoxaluria Plan Discussed with the patient that the blood work including PTH is still pending. Tele-health follow-up in 4 weeks for blood work and stone analysis, and continue to monitor the kidney. Follow up in 6-months. Orders: Orders Surgical 11/10/22 N20.1 - Calculus of ureter Patient Instructions: The patient had an opportunity to ask questions regarding treatment plan. All questions were answered. Imaging, Laboratory studies and physical exam results were discussed and reviewed in detail. No major barriers to understanding were identified. The patient expressed understanding and agreement with the above treatment plan. The patient is aware they should contact our office by phone for worsening of their current condition or the appearance of new symptoms. Compliance is encouraged with any medications and followup testing that is ordered. It is a privilege to be allowed the opportunity to participate in the urologic care of your patient. If you have any questions or concerns regarding treatment for the above conditions please do not hesitate to contact me. The office telephone contact is [phone]. This note is constructed in part using voice recognition software. While every e ffort has been made to ensure accuracy supreme court justice errors may have been included. Yours sincerely, Radha Baker MD Coding Level of Care Code Est Pt Level 3 (22868) Diagnoses Calculus of kidney N20.0 Hypercalciuria R82.994 Hyperoxaluria R82.992 Time Spent (min) 21
== END 2022-11-10 10:47 | disposition home or self-care (01) ==
PROVIDERS: PCP Internal Medicine; Visit Provider Urology
DX: N20.0 Calculus of kidney (principal); R82.994 Hypercalciuria; R82.992 Hyperoxaluria
CPT/HCPCS: 99213

== ENCOUNTER 2022-11-10 10:16 | Outpatient (REF) | payer BC, SELFPAY ==
[2022-11-17 23:14] LABS: Stone Source KIDNEY STONE
== END 2022-11-10 10:17 | disposition home or self-care (01) ==
LOC: HO.LNP 10:16
PROVIDERS: PCP Internal Medicine; Visit Provider Urology
DX: N20.1 Calculus of ureter (principal); N20.0 Calculus of kidney
CPT/HCPCS: 82365; 88300

== ENCOUNTER 2022-12-08 11:36 | Outpatient (AMB) | payer BC, SELFPAY ==
--- NOTE | 2022-12-07 16:27 | A.OFFVIS_ITS ---
Intake Intake Visit Reasons: Stone analysis Intake Note: Patient presents today for a follow-up on Stone analysis: Meds- Vitamin B6 & Tamsulosin Allergies to Antibiotic- No Known Allergies Blood Thinner- None Starch Cooker Required: No Accompanied by: Self / Same As Patient Allergies No Known Allergies Allergy (Verified 12/08/22 11:38) HPI HPI Comments History of Present Illness Details Dee is a 41-year-old female who presents today via tele-health for a follow up on stone analysis. 12/08/2022? She was last seen by me on 11/10/2022 for calculus of the left kidney. She had a left ESWL done on 09/27/2022. I discussed the 24-hour urine results which were significant for hypercalciuria-805, hyperoxaluria 50. She was prescribed vitamin B6 100 mg daily. She was advised to tele-health follow up in 4 weeks to review blood work and stone analysis and was advised to follow up in 6 months at that time. She has had blood work including PTH and vitamin D3. I have reviewed the blood work results from 11/07/2022 which came back vitamin D3 low at 23, and PTH 11 was normal. She has not been consistent with vitamin B6. I have reviewed the CAT scan of the abdomen/pelvis from 11/07/2022 revealed tiny left renal stones 1 and 2 mm (likely remnant stone fragments post ESWL). No hydronephrosis, ureteral dilatation or ureteral stone seen. Enlarged lobulated uterus probably representing fibroids. Review of charts: Last visit: 11/10/2022-- She was last seen by me on 10/02/2022. She has a history of kidney stones.? She states that while she was in [place], she had urinary tract infection symptoms and felt like passing a stone fragments. She states that she did pass a stone. She reports that the symptoms have been resolved at this time. Discussed 24 hour urine results: Total volume 1.76 L, Calcium 805 mg; Oxalate? 50 mg, Sodium 366, Citrate? 3029 mg.? Instructed on importance of fluid intake, Low oxalate diet, low sodium diet. She has had left ESWL done on 09/27/2022. She had a CAT scan done on 11/07/2022. Official results were not available.? She also had blood work including PTH done on -11/07/2022. I reviewed the CAT scan result-official anesthesiology physician was not provided by the radiologist. I reviewed the films with her and noted obstructive left ureter stone was no longer visualized, however; I can see too tiny 1-2mm fragments in the left kidney at this time.? Plan: Discussed with the patient that the blood work including PTH is still pending. Tele-health follow-up in 4 weeks for blood work and stone analysis, and continue to monitor the kidney. Follow up in 6-months. 12/08/2022?Plan: Recommended to take OTC vitamin D3 2000 IU daily. Repeat 24-hour urine collection in a month. Will repeat blood work for vitamin D3 in next few months. She has not been consistent with vitamin B6. Encouraged her that it is important to be consistent to take vitamin B6 100 mg daily. [facility] Medical History Abdominal discomfort History of Galen thyroiditis History of palpitations Hx of Helicobacter infection Hypothyroid Left knee pain Obesity Surgical History History of esophagogastroduodenoscopy (EGD) Hx of ovarian cystectomy Social History Household Members: Friend(s) Housing: Apartment Are you a primary critical care clinical nurse specialist to a significant other at home: No Do you presently have visiting nurse or other home services: No Alcohol intake: never Patient Tobacco Use Status: Never used Tobacco Review of Systems Const All systems reviewed & are unremarkable except as noted in HPI and below Reports no additional complaints Eyes Reports no additional complaints ENT Reports no additional complaints Card Denies dyspnea Resp Denies cough and Denies dyspnea GI Reports no additional complaints Reports no additional complaints Musc Reports no additional complaints Skin/Breast Denies rash and Denies unusual bruising Neuro Reports no additional complaints Psych Reports no additional complaints Endo Reports no additional complaints Brian/Lymph Reports no additional complaints Aller/Immun Reports no additional complaints Results Reviewed Results Reviewed: Date of Service: 11/07/22 EXAMINATION: CT ABDOMEN AND PELVIS WITHOUT CONTRAST? CLINICAL INFORMATION: Ureteral stone? COMPARISON: Previous CT scans of the abdomen and pelvis June 2022 and February 2014 and [facility] September 2022 FINDINGS: LUNG BASES: The visualized lung bases are unremarkable.? LIVER, GALLBLADDER, AND BILIARY TREE: The liver is normal in size, shape, and attenuation. No focal hepatic lesion or biliary ductal dilatation is present. The gallbladder is unremarkable with no evidence of radiopaque gallstones, gallbladder wall thickening, or obvious pericholecystic inflammatory changes.? PANCREAS: Unremarkable.? SPLEEN: Unremarkable.? ADRENAL GLANDS: Unremarkable.? KIDNEYS AND URETERS: 2 small left renal stones measuring 1 mm the upper pole and 2 mm in the lower pole. No hydronephrosis or ureteral dilatation. Left distal ureter not well visualized due to mass effect from the probable enlarged fibroid uterus. No ureteral stone seen. BLADDER: Bladder is empty and not well evaluated GASTROINTESTINAL TRACT: The small and large bowel are unremarkable. The appendix is unremarkable.? ABDOMINAL WALL: No significant hernia is appreciated.? LYMPH NODES: Normal. VASCULAR: Unremarkable. PELVIC VISCERA: Enlarged uterus with lobulated contour probably representing fibroids. This is similar to previous exams. OSSEOUS STRUCTURES: Unremarkable.? IMPRESSION: Small left renal stones. No hydronephrosis, ureteral dilatation or ureteral stone seen. Enlarged lobulated uterus probably representing fibroids. This could be better assessed with ultrasound. Assessment & Plan Assessment & Plan (1) Calculus of kidney: Code(s): N20.0 - Calculus of kidney Plan: Recommended to take OTC vitamin D3 2000 IU daily. Repeat 24-hour urine collection in a month. Will repeat blood work for vitamin D3 in next few months. She has not been consistent with vitamin B6. Encouraged her that it is important to be consistent to take vitamin B6 100 mg daily. (2) Hypercalciuria: Code(s): R82.994 - Hypercalciuria (3) Hyperoxaluria: Code(s): R82.992 - Hyperoxaluria (4) Calcium oxalate kidney stones: Code(s): N20.0 - Calculus of kidney Patient Instructions: The patient had an opportunity to ask questions regarding treatment plan. All questions were answered. Imaging, Laboratory studies and physical exam results were discussed and reviewed in detail. No major barriers to understanding were identified. The patient expressed understanding and agreement with the above treatment plan.? ? ? The patient is aware they should contact our office by phone for worsening of their current condition or the appearance of new symptoms. Compliance is encouraged with any medications and followup testing that is ordered.? ? ? It is a privilege to be allowed the opportunity to participate in the urologic care of your patient. If you have any questions or concerns regarding treatment for the above conditions please do not hesitate to contact me. The office telephone contact is [phone].? ? ? This note is constructed in part using voice recognition software. While every effort has been made to ensure accuracy anesthesiology physician errors may have been included.? ? ? Yours sincerely,? ? ? Radha Baker MD? ? Telehealth Telehealth Location of provider rendering services: practice address Location of patient: address on file Patient Identification confirmed using: Name, : Yes Telehealth method: voice only Patient verbally consented to treatment: Yes Patient verbally consented to billing insurance company: Yes Patient informed of any privacy concerns related to visit: Yes Minutes spent on Phone/Video with Pt.: 15 Coding Level of Care Code Tele New Pt Level 3 (72470) Diagnoses Calculus of kidney N20.0 Hypercalciuria R82.994 Hyperoxaluria R82.992 Calcium oxalate kidney stones N20.0
== END 2022-12-08 11:54 | disposition home or self-care (01) ==
LOC: HO.HUSH 11:37
PROVIDERS: PCP Internal Medicine; Visit Provider Urology
DX: N20.0 Calculus of kidney (principal); R82.994 Hypercalciuria; R82.992 Hyperoxaluria
CPT/HCPCS: 99442

== ENCOUNTER → 2022-12-08 11:36 | Outpatient (BNVA) | payer BC, SELFPAY | PROVIDERS: PCP Internal Medicine; Visit Provider Urology ==

== ENCOUNTER 2023-02-01 11:10 | Outpatient (REF) | payer BC, SELFPAY ==
--- NOTE | ~2023-02-01 | US_ITS ---
EXAMINATION: US PELVIS CLINICAL INFORMATION: Fibroid, vaginal bleeding. COMPARISON: CT abdomen and pelvis 11/07/2022. TECHNIQUE: Ultrasound of the pelvis is performed using both transabdominal and transvaginal transducers along with Doppler. Transvaginal imaging is performed due to inadequate visualization transabdominally. FINDINGS: The uterus is anteverted, heterogeneous and measures 10.4 x 5.2 x 5.2 cm, volume 147.2 mL. Multiple uterine fibroids are identified, largest is 6.7 x 5.2 x 5.6 cm, 2.7 x 3.2 x 2.6 cm, and 2.2 x 2.5 x 2.8 cm. Visualization of the endometrium is limited due to fibroids. Imaged segment of endometrium with thickness of 0.8 cm. Small amount of free fluid in the pelvis. Left ovary not visualized. Right ovary measures 3.5 x 1.0 x 2.1 cm, volume 3.8 mL and is unremarkable. US/US pelvic and transvaginal IMPRESSION: 1. Enlarged fibroid uterus. 2. Visualization of the endometrium is limited due to fibroids. Imaged segment of endometrium with thickness of 0.8 cm. 3. Small amount of free fluid in the pelvis. 4. Unremarkable right ovary. Left ovary not visualized.
== END 2023-02-01 11:11 | disposition home or self-care (01) ==
LOC: HO.US 11:10
PROVIDERS: PCP Internal Medicine; Visit Provider Internal Medicine
DX: D21.9 Benign neoplasm of connective and other soft tissue, unspecified (principal)
CPT/HCPCS: 76830; 76856

== ENCOUNTER 2023-02-12 09:36 | Outpatient (REF) | payer BC, SELFPAY | END 2023-02-12 09:37 | disposition home or self-care (01) | LOC: HO.LNP 09:36 | PROVIDERS: Visit Provider Internal Medicine | DX: R19.8 Other specified symptoms and signs involving the digestive system and abdomen (principal) | CPT/HCPCS: 87338 ==

== ENCOUNTER 2023-02-19 11:04 | Outpatient (REF) | payer BC, SELFPAY ==
[2023-02-19 11:08] LABS: MANUAL DIFF FLAG NO
[2023-02-19 11:33] LABS: Basophils Percent Auto 0.3 % (0-2); Eosinophils Absolute Auto 0.2 X10*3/uL (0.0-0.4); Eosinophils Percent Auto 2.8 % (0-4); Hematocrit 39.9 % (37.0-47.0); Hemoglobin 12.7 g/dl (12.0-16.0); Imm Gran Abs Auto 0.01 X10*3/uL (0.00-0.03); Imm Gran Pct Auto 0.1 % (0.0-0.4); Lymphocytes Absolute Auto 2.2 X10*3/uL (1.2-4.9); Lymphocytes Percent Auto 27.3 % (20-40); Mean Corpuscular HGB Conc 31.8 g/dl (31.0-35.0); Mean Corpuscular Hemoglobin 29.5 pg (27.0-33.0); Mean Corpuscular Volume 92.6 fL (80.0-98.0); Mean Platelet Volume 10.1 fL (9.4-12.3); Monocytes Absolute Auto 0.6 X10*3/uL (0.1-1.2); Monocytes Percent Auto 7.4 % (2-11); Neutrophils Percent Auto 62.1 % (45-73); Platelet Count 402 X10*3/uL (160-400); Red Blood Count 4.31 X10*6/uL (4.20-5.50); Red Cell Distribution Width 13.9 % (11.0-16.0)
[2023-02-19 11:41] LABS: Appearance Urine Cloudy; Color Urine Yellow; Glucose Urine UA Negative (Negative); Leukocyte Esterase Urine Negative (Negative); Nitrite Urine Negative (Negative); PH 5.5 (5.0-9.0); Specific Gravity - Urine >= 1.030 (1.005-1.025); Urine Blood Negative (Negative); Urine Ketones Negative (Negative); Urine Protein Negative (Neg-Trace)
[2023-02-19 11:45] LABS: Bacteria Urine Trace (None Seen); Hyaline Casts Urine 0-2 /LPF (0-2); RBC Urine 0-2 /HPF (0-2); WBC Urine 0-5 /HPF (0-5)
[2023-02-19 12:04] LABS: Alanine Aminotransferase 19 U/L (0-31); Alkaline Phosphatase 69 U/L (39-117); Anion Gap 15 (12-20); Aspartate Amino Transferase 17 U/L (5-31); Bilirubin Total 0.3 mg/dL (0.0-1.0); Blood Urea Nitrogen 12 mg/dL (9-16); Calcium 9.1 mg/dL (8.4-10.2); Carbon Dioxide 22 mmol/L (22-29); Chloride 105 mmol/L (96-108); Cholesterol 173 mg/dL (<200); Estimated Glomerular Filt Rate > 60; Glucose Fasting 97 mg/dL (60-99); HDL Cholesterol 52 mg/dL (>40); LDL Cholesterol Calculated 91 mg/dL (<100); Potassium 4.2 mmol/L (3.3-5.1); Sodium 138 mmol/L (135-145); Total Protein 7.1 g/dL (6.5-8.0); Triglycerides 152 mg/dL (<150)
[2023-02-19 12:19] LABS: TSH reflex Free T4 2.24 uIU/mL (0.32-4.0)
== END 2023-02-19 11:05 | disposition home or self-care (01) ==
LOC: HO.LNP 11:04
PROVIDERS: Visit Provider Internal Medicine
DX: Z00.00 Encounter for general adult medical examination without abnormal findings (principal); E03.9 Hypothyroidism, unspecified
CPT/HCPCS: 80053; 80061; 81001; 84443; 85025

== ENCOUNTER 2023-08-27 11:15 | Outpatient (AMB) | payer BC, SELFPAY ==
--- NOTE | 2023-08-27 11:39 | MHC.OFFVIS ---
Vital Signs 08/27/23 11:41 Height 5 ft 6.5 in Weight 262 lb 5.601 oz BMI 41.7 BP 125/57 L Blood Pressure Location Rt brachial Position Sitting Pulse 79 Intake Visit Reasons: chronic diarrhea Intake Note: Dee presents in the office as a new patient for chronic diarrhea. CC: She has been having diarrhea for a while now so she just wants to get those under control. On and off bad breath and abdominal pains. Bad breath occurs when she eats. Allergies No Known Allergies Allergy (Verified 08/27/23 11:41) HPI HPI chronic diarrhea: Details: HPI 42 yr old f here for assessment for abn bowel habit she has had abn bowel habit for several months she can be going 4-5 times a day no blood in stool occ nausea on waking ruq abdo pain, discomfort, off and on, no obvious worsening factors, better with laying down been a problem since a thyroid problem --on levothyroxine she has ext hemorrhoids ROS: Constitutional : No Weight loss, No Fever, No Chills ENT/Mouth : No sore throat, No Rhinorrhea Eyes: No Swelling, No Redness Cardiovascular : No Chest Pain, No SOB, No Edema Respiratory : No Cough, No Sputum, No Wheezing Gastrointestinal : see HPI Genitourinary : NO Dysuria, No Urinary Frequency, No Hematuria, No Urgency Musculoskeletal : + joint pain, No Myalgias, No Joint Swelling Skin : No Skin Lesions, No rash Neuro : No Weakness, No Numbness, No Dizziness, No Headache Psych : No Anxiety/Panic, No Depression Heme/Lymph: No Bruising, No Lymphadenopathy Endocrine : No Polyuria, No Polydipsia All other systems reviewed and are negative. 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 VITAL SIGNS:see workflow HEENT: Nonicteric sclerae, PERRLA, EOMI. Oropharynx clear. Moist mucous membranes. Conjunctivae appear well perfused. No thyroid mass. CHEST: Chest wall is nontender. HEART: Regular rate and rhythm without murmurs. LUNGS: Clear to auscultation bilaterally. ABDOMEN: Soft, positive bowel sounds, tender RUQ, no organomegaly.no flank tenderness SKIN: No rash, no excessive bruising, petechiae, or purpura. NEUROLOGIC: Cranial nerves II-XII intact without motor/sensory deficit. Psych: normal affect A/P: 1/ RUQ pain ddx: gallstones 2/ abn bowel habit, ddx: inflammation, infectious, mechanical PLAN: 1/ EGD and colo for eval of altered bowel habit 2/ labs as below 3/ US GB 4/ high fiber diet PFSH Medical History Left knee pain Hx of Helicobacter infection Abdominal discomfort History of palpitations Hypothyroid History of Galen thyroiditis Obesity Surgical History History of esophagogastroduodenoscopy (EGD) Hx of ovarian cystectomy Social History Household Members: Friend(s) Housing: Apartment Are you a primary family day care worker to a significant other at home: No Do you presently have visiting nurse or other home services: No Alcohol intake: never Patient Tobacco Use Status: Never used Tobacco Physical Exam Vital Signs: BMI result Body Mass Index 41.7 Assessment & Plan Assessment & Plan (1) RUQ abdominal pain: Code(s): R10.11 - Right upper quadrant pain Category: Medical Plan: PLAN: 1/ EGD and colo for eval of altered bowel habit 2/ labs as below 3/ US GB 4/ high fiber diet (2) Abnormal bowel habits: Code(s): R19.8 - Other specified symptoms and signs involving the digestive system and abdomen Category: Medical Plan: PLAN: 1/ EGD and colo for eval of altered bowel habit 2/ labs as below 3/ US GB 4/ high fiber diet Orders: Orders Comprehensive Met. Panel Today K75.81 - Nonalcoholic steatohepatitis (MOSCOSO), R10.11 - Right upper quadrant pain, R19.8 - Other specified symptoms and signs involving the digestive system and abdomen Vitamin B12 and Folate Today R10.11 - Right upper quadrant pain, R19.8 - Other specified symptoms and signs involving the digestive system and abdomen Transglutaminase Ab IgG Today G89.29 - Other chronic pain, R10.11 - Right upper quadrant pain, R10.33 - Periumbilical pain, R19.8 - Other specified symptoms and signs involving the digestive system and abdomen Pancreatic Elastase-1 Today R10.11 - Right upper quadrant pain, R19.8 - Other specified symptoms and signs involving the digestive system and abdomen C Reactive Protein Today R10.11 - Right upper quadrant pain, R19.8 - Other specified symptoms and signs involving the digestive system and abdomen Immunoglobulins,IgG IgA IgM Today R10.11 - Right upper quadrant pain, R19.8 - Other specified symptoms and signs involving the digestive system and abdomen Complete Blood Count Auto Diff Today R10.11 - Right upper quadrant pain, R19.8 - Other specified symptoms and signs involving the digestive system and abdomen GI Panel Today R10.11 - Right upper quadrant pain, R19.7 - Diarrhea, unspecified, R19.8 - Other specified symptoms and signs involving the digestive system and abdomen Lactoferrin, Fecal, Quant. Today K51.50 - Left sided colitis without complications, R10.11 - Right upper quadrant pain, R19.8 - Other specified symptoms and signs involving the digestive system and abdomen CDiff Gene PCR Today R10.11 - Right upper quadrant pain, R19.7 - Diarrhea, unspecified, R19.8 - Other specified symptoms and signs involving the digestive system and abdomen US abdomen complete Today R10.11 - Right upper quadrant pain, R19.8 - Other specified symptoms and signs involving the digestive system and abdomen Medications: New sodium,potassium,mag sulfates 17.5-3.13-1.6 gram (Suprep Bowel Prep Kit) DILUTE; drink 1/2 at 6-8 pm and half at 11 PM- 1AM 354 mL 0RF Coding Level of Care Code New Pt Level 4 (85514) Diagnoses RUQ abdominal pain R10.11 Abnormal bowel habits R19.8
[2023-08-27 11:41] VITALS: BP 125/57; PULSE 79; BMI 41.7
== END 2023-08-27 12:08 | disposition home or self-care (01) ==
PROVIDERS: PCP Internal Medicine; Visit Provider Internal Medicine Gastroenterology
DX: R10.11 Right upper quadrant pain (principal); R19.8 Other specified symptoms and signs involving the digestive system and abdomen
CPT/HCPCS: 99204

== ENCOUNTER → 2023-08-27 11:15 | Outpatient (BNVA) | payer BC, SELFPAY | PROVIDERS: PCP Internal Medicine; Visit Provider Internal Medicine Gastroenterology ==

== ENCOUNTER 2023-09-04 08:34 | Outpatient (REF) | payer BC, SELFPAY ==
--- NOTE | ~2023-09-04 | US_ITS ---
EXAMINATION: US ABDOMEN COMPLETE CLINICAL INFORMATION: Right upper quadrant pain. COMPARISON: CT abdomen and pelvis 11/07/2022. Ultrasound kidneys and bladder 07/14/2022. TECHNIQUE: Real-time imaging of the abdominal viscera. FINDINGS: PANCREAS: The head and body appear normal. The tail is obscured by bowel gas. ABDOMINAL AORTA: The proximal, mid, and distal segments are normal in caliber. INFERIOR VENA CAVA: Visualized portions are normal. LIVER: The liver is normal in size. The liver contour is normal. There is diffuse increased liver parenchymal echogenicity, consistent with hepatic steatosis. No focal hepatic lesion. There is no intrahepatic biliary duct dilatation seen. GALLBLADDER: Normal. The gallbladder is physiologically distended without evidence of stones, sludge, polyps, wall thickening or pericholecystic fluid. COMMON BILE DUCT: Normal in caliber measuring 0.4 cm in diameter. RIGHT KIDNEY: Normal. No hydronephrosis. No renal calculi or focal parenchymal lesions. The kidney measures 12.1 cm in maximum dimension. LEFT KIDNEY: Punctate nonobstructing calculi in the lower pole. No hydronephrosis. No renal calculi or focal parenchymal lesions. The kidney measures 11.5 cm in maximum dimension. SPLEEN: Normal. The spleen measures 11.6 cm in maximum dimension. FREE FLUID: None. US/US abdomen complete IMPRESSION: Hepatic steatosis. Punctate nonobstructing calculi in the lower pole of the left kidney. No hydronephrosis.
[2023-09-04 09:38] LABS: MANUAL DIFF FLAG NO
[2023-09-04 10:16] LABS: Basophils Percent Auto 0.3 % (0-2); Eosinophils Absolute Auto 0.2 X10*3/uL (0.0-0.4); Eosinophils Percent Auto 2.4 % (0-4); Hematocrit 36.9 % (37.0-47.0); Hemoglobin 12.2 g/dl (12.0-16.0); Imm Gran Abs Auto 0.03 X10*3/uL (0.00-0.03); Imm Gran Pct Auto 0.4 % (0.0-0.4); Lymphocytes Absolute Auto 1.8 X10*3/uL (1.2-4.9); Lymphocytes Percent Auto 25.8 % (20-40); Mean Corpuscular HGB Conc 33.1 g/dl (31.0-35.0); Mean Corpuscular Hemoglobin 29.6 pg (27.0-33.0); Mean Corpuscular Volume 89.6 fL (80.0-98.0); Mean Platelet Volume 9.7 fL (9.4-12.3); Monocytes Absolute Auto 0.5 X10*3/uL (0.1-1.2); Monocytes Percent Auto 6.4 % (2-11); Neutrophils Absolute Auto 4.5 x10*3/uL (2.0-8.3); Neutrophils Percent Auto 64.7 % (45-73); Platelet Count 344 X10*3/uL (160-400); Red Blood Count 4.12 X10*6/uL (4.20-5.50); Red Cell Distribution Width 13.6 % (11.0-16.0)
[2023-09-04 11:24] LABS: Alanine Aminotransferase 19 U/L (0-31); Albumin Level 3.9 g/dL (3.5-5.0); Alkaline Phosphatase 73 U/L (39-117); Anion Gap 13 (12-20); Aspartate Amino Transferase 18 U/L (5-31); Bilirubin Total 0.3 mg/dL (0.0-1.0); Blood Urea Nitrogen 9 mg/dL (9-16); C Reactive Protein 1.36 mg/dL (< or = 0.50); Calcium 9.1 mg/dL (8.4-10.2); Carbon Dioxide 24 mmol/L (22-29); Chloride 107 mmol/L (96-108); Estimated Glomerular Filt Rate > 60; Glucose Random 90 mg/dL (60-115); Potassium 4.3 mmol/L (3.3-5.1); Sodium 140 mmol/L (135-145); Total Protein 7.1 g/dL (6.5-8.0)
[2023-09-04 11:53] LABS: Folate 9.7 ng/mL (> or = 4.0); Vitamin B12 438 pg/mL (200-900)
[2023-09-06 08:08] LABS: Transglutaminase Ab IgG <1.0 U/mL
[2023-09-07 08:48] LABS: IgA 279 mg/dL (47-310); IgG 1035 mg/dL (600-1640); IgM 195 mg/dL (50-300)
== END 2023-09-04 08:35 | disposition home or self-care (01) ==
LOC: HO.US 08:34
PROVIDERS: PCP Internal Medicine; Visit Provider Internal Medicine Gastroenterology
DX: R10.11 Right upper quadrant pain (principal); R19.8 Other specified symptoms and signs involving the digestive system and abdomen; K75.81 Nonalcoholic steatohepatitis (NASH); R10.33 Periumbilical pain; G89.29 Other chronic pain
CPT/HCPCS: 36415; 76700; 80053; 82607; 82746; 82784; 85025; 86140; 86364

== ENCOUNTER 2023-09-05 08:26 | Outpatient (REF) | payer BC, SELFPAY ==
[2023-09-05 10:10] LABS: Adenovirus F 40/41 Not Detected (Not Detect.); Astrovirus Not Detected (Not Detect.); Campylobacter Not Detected (Not Detect.); Cryptosporidium Not Detected (Not Detect.); Cyclospora cayetanensis Not Detected (Not Detect.); E. coli EAEC Not Detected (Not Detect.); E. coli EPEC Not Detected (Not Detect.); E. coli ETEC Not Detected (Not Detect.); E. coli STEC Not Detected (Not Detect.); Entamoeba histolytica Not Detected (Not Detect.); Giardia lamblia Not Detected (Not Detect.); Norovirus GI/GII Not Detected (Not Detect.); Plesiomonas shigelloides Not Detected (Not Detect.); Rotavirus A Not Detected (Not Detect.); Salmonella Not Detected (Not Detect.); Sapovirus Not Detected (Not Detect.); Shigella sp./EIEC Not Detected (Not Detect.); Vibrio Not Detected (Not Detect.); Vibrio Cholerae Not Detected (Not Detect.); Yersinia enterocolitica Not Detected (Not Detect.)
[2023-09-05 10:18] LABS: CDiff Gene PCR NEGATIVE (Negative)
[2023-09-12 21:04] LABS: Lactoferrin, Fecal, Quant. <6.25 mcg/mL (<7.25)
[2023-09-13 20:03] LABS: Pancreatic Elastase-1 >500 mcg/g
== END 2023-09-05 08:27 | disposition home or self-care (01) ==
LOC: HO.LNP 08:26
PROVIDERS: Visit Provider Internal Medicine Gastroenterology
DX: R10.11 Right upper quadrant pain (principal); R19.8 Other specified symptoms and signs involving the digestive system and abdomen; R19.7 Diarrhea, unspecified; K51.50 Left sided colitis without complications
CPT/HCPCS: 82656; 83631; 87493; 87507

== ENCOUNTER 2024-01-25 09:39 | Outpatient (AMB) | payer BC, SELFPAY ==
--- NOTE | 2024-01-25 09:39 | MHC.OFFVIS ---
Vital Signs 01/25/24 09:42 Height 5 ft 6.5 in Weight 264 lb 8.875 oz BMI 42.1 BP 121/58 L Blood Pressure Location Lt radial Position Sitting Pulse 71 Intake Visit Reasons: 5 month follow up Intake Note: Dee presents in the office as a 5 month follow up. CC: She states that she has all the same symptoms as her previous visit - no changes. 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 Allergies No Known Allergies Allergy (Verified 01/25/24 09:40) HPI HPI 5 month follow up: Details: 43 yr old f here for assessment for abn bowel habit RECAP: she has had abn bowel habit for several months she can be going 4-5 times a day no blood in stool occ nausea on waking ruq abdo pain, discomfort, off and on, no obvious worsening factors, better with laying down been a problem since a thyroid problem --on levothyroxine she has ext hemorrhoids LABS: 09/13 HGB 12, CRP slightly raised US with fatty liver, no gallstones, small left kidney stone INTERIM: she still has abn stools, stool tests were negative she feels her stools are narrow she has RUQ discomfort,no nausea or vomiting not had egd,colo scheduled yet EXAM: GENERAL: The patient is well developed and nontoxic. VITAL SIGNS:see workflow HEENT: Nonicteric sclerae, PERRLA, EOMI. Oropharynx clear. Moist mucous membranes. Conjunctivae appear well perfused. No thyroid mass. CHEST: Chest wall is nontender. HEART: Regular rate and rhythm without murmurs. LUNGS: Clear to auscultation bilaterally. ABDOMEN: Soft, positive bowel sounds, non tender, no organomegaly.no flank tenderness SKIN: No rash, no excessive bruising, petechiae, or purpura. NEUROLOGIC: Cranial nerves II-XII intact without motor/sensory deficit. Psych: normal affect A/P: 1/ RUQ discomfort, neg US ?GB dyskinesia, muscular pain 2/ abn bowel habit, ddx: inflammation, infectious, mechanical --not enough fiber in diet PLAN: 1/ EGD and colo for eval of altered bowel habit as before, send suprep 2/ high fiber diet 3/ if neg then HIDA to r/o Gb dyskinesia [facility] Medical History Left knee pain Hx of Helicobacter infection Abdominal discomfort History of palpitations Hypothyroid History of Galen thyroiditis Obesity Surgical History History of esophagogastroduodenoscopy (EGD) Hx of ovarian cystectomy Social History Household Members: Friend(s) Housing: Apartment Are you a primary health care coordinator to a significant other at home: No Do you presently have visiting nurse or other home services: No Alcohol intake: never Patient Tobacco Use Status: Never used Tobacco Physical Exam Vital Signs: Last Vital Signs Pulse 71 01/25/24 09:42 BP 121/58 L 01/25/24 09:42 BMI result Body Mass Index 42.1 Assessment & Plan Assessment & Plan (1) Abnormal bowel habits: Code(s): R19.8 - Other specified symptoms and signs involving the digestive system and abdomen Category: Medical Plan: see above Medications: New sodium,potassium,mag sulfates 17.5-3.13-1.6 gram (Suprep Bowel Prep Kit) DILUTE; drink 1/2 at 6-8 pm and half at 11 PM- 1AM 354 mL 0RF Coding Level of Care Code Est Pt Level 4 (76485) Diagnoses Abnormal bowel habits R19.8
[2024-01-25 09:42] VITALS: BP 121/58; PULSE 71; BMI 42.1
== END 2024-01-25 10:41 | disposition home or self-care (01) ==
PROVIDERS: PCP Internal Medicine; Referring Provider Internal Medicine; Visit Provider Internal Medicine Gastroenterology
DX: R19.8 Other specified symptoms and signs involving the digestive system and abdomen (principal)
CPT/HCPCS: 99214

== ENCOUNTER → 2024-01-25 09:39 | Outpatient (BNVA) | payer BC, SELFPAY | PROVIDERS: PCP Internal Medicine; Visit Provider Internal Medicine Gastroenterology ==

== ENCOUNTER 2024-02-28 11:40 | Outpatient (REF) | payer BC, SELFPAY ==
[2024-02-28 11:45] LABS: MANUAL DIFF FLAG NO
[2024-02-28 12:11] LABS: Basophils Percent Auto 0.1 % (0-2); Eosinophils Absolute Auto 0.3 X10*3/uL (0.0-0.4); Eosinophils Percent Auto 3.4 % (0-4); Hematocrit 37.9 % (37.0-47.0); Hemoglobin 12.4 g/dl (12.0-16.0); Imm Gran Abs Auto 0.02 X10*3/uL (0.00-0.03); Imm Gran Pct Auto 0.3 % (0.0-0.4); Lymphocytes Absolute Auto 2.3 X10*3/uL (1.2-4.9); Lymphocytes Percent Auto 30.6 % (20-40); Mean Corpuscular HGB Conc 32.7 g/dl (31.0-35.0); Mean Corpuscular Hemoglobin 29.5 pg (27.0-33.0); Mean Platelet Volume 9.9 fL (9.4-12.3); Monocytes Absolute Auto 0.5 X10*3/uL (0.1-1.2); Monocytes Percent Auto 6.7 % (2-11); Neutrophils Absolute Auto 4.5 x10*3/uL (2.0-8.3); Neutrophils Percent Auto 58.9 % (45-73); Platelet Count 365 X10*3/uL (160-400); Red Blood Count 4.21 X10*6/uL (4.20-5.50); Red Cell Distribution Width 13.7 % (11.0-16.0); White Blood Count 7.6 X10*3/uL (4.8-10.8)
[2024-02-28 12:12] LABS: Appearance Urine Clear; Color Urine Yellow; Glucose Urine UA Negative (Negative); Leukocyte Esterase Urine Negative (Negative); Nitrite Urine Negative (Negative); UMIC TRIGGER UACC YES; Urine Blood Trace (Negative); Urine Ketones Negative (Negative); Urine Protein Negative (Neg-Trace)
[2024-02-28 12:16] LABS: Bacteria Urine None Seen (None Seen); Hyaline Casts Urine 0-2 /LPF (0-2); WBC Urine 0-5 /HPF (0-5)
[2024-02-28 12:40] LABS: Alanine Aminotransferase 21 U/L (0-31); Albumin Level 3.8 g/dL (3.5-5.0); Alkaline Phosphatase 84 U/L (39-117); Anion Gap 12 (12-20); Aspartate Amino Transferase 26 U/L (5-31); Bilirubin Total 0.2 mg/dL (0.0-1.0); Blood Urea Nitrogen 12 mg/dL (9-16); Carbon Dioxide 23 mmol/L (22-29); Chloride 107 mmol/L (96-108); Cholesterol 181 mg/dL (<200); Estimated Glomerular Filt Rate > 60; Glucose Fasting 91 mg/dL (60-99); HDL Cholesterol 45 mg/dL (>40); LDL Cholesterol Calculated 92 mg/dL (<100); Potassium 4.1 mmol/L (3.3-5.1); Sodium 138 mmol/L (135-145); Triglycerides 221 mg/dL (<150)
[2024-02-28 12:55] LABS: TSH reflex Free T4 2.19 uIU/mL (0.32-4.0)
== END 2024-02-28 11:41 | disposition home or self-care (01) ==
LOC: HO.LNP 11:40
PROVIDERS: Visit Provider Internal Medicine
DX: Z00.00 Encounter for general adult medical examination without abnormal findings (principal); E03.9 Hypothyroidism, unspecified
CPT/HCPCS: 80053; 80061; 81001; 84443; 85025

== ENCOUNTER 2024-02-29 11:06 | Outpatient (REF) | payer BC, SELFPAY ==
[2024-02-29 11:33] LABS: Appearance Urine Clear; Color Urine Yellow; Glucose Urine UA Negative (Negative); Leukocyte Esterase Urine Negative (Negative); Nitrite Urine Negative (Negative); PH 5.5 (5.0-9.0); Specific Gravity - Urine 1.025 (1.005-1.025); Urine Blood Negative (Negative); Urine Ketones Negative (Negative); Urine Protein Negative (Neg-Trace)
[2024-02-29 11:40] LABS: Bacteria Urine None Seen (None Seen); Hyaline Casts Urine 0-2 /LPF (0-2); RBC Urine 0-2 /HPF (0-2); Squamous Epithelial Cell Urine 0-2 /HPF (0-2); WBC Urine 0-5 /HPF (0-5)
== END 2024-02-29 11:07 | disposition home or self-care (01) ==
LOC: HO.LNP 11:06
PROVIDERS: Visit Provider Internal Medicine
DX: R31.9 Hematuria, unspecified (principal)
CPT/HCPCS: 81001

== ENCOUNTER 2024-03-27 09:04 | Day surgery (SDC) | payer BC, SELFPAY ==
[2024-03-25 14:31] VITALS: BMI 42.0
--- NOTE | 2024-03-26 10:25 | HO.ANESPROP2 ---
Documented by User: Phyllis Azar NP 03/26/24 10:25 HPI - Anesthesia Eval Consult details Narrative: 43yo F for Upper Endoscopy and Colonoscopy PMF Active Problems Active Problems: All Active Problems Abnormal bowel habits (Acute) RUQ abdominal pain (Acute) Thoracic outlet syndrome (Acute) Esophageal diverticulum (Acute) Carpal tunnel syndrome on both sides (Acute) Morbid obesity with BMI of 50.0-59.9, adult (Acute) Calcium oxalate kidney stones (Acute) Hyperoxaluria (Acute) Hypercalciuria (Acute) Hydronephrosis (Acute) Left ureteral calculus (Acute) Gross hematuria (Acute) Past Medical History Medical History Left knee pain Hx of Helicobacter infection Abdominal discomfort History of palpitations Hypothyroid History of Galen thyroiditis Obesity Family History Family history of problems with anesthesia: No Surgical History Surgical History History of esophagogastroduodenoscopy (EGD) Hx of ovarian cystectomy History of Problems with Anesthesia: No Social History Social History Household Members: Friend(s) Housing: Apartment Are you a primary health and social care teacher to a significant other at home: No Do you presently have visiting nurse or other home services: No Alcohol intake: never Patient Tobacco Use Status: Never used Tobacco Have you been hit, kicked, punched, or otherwise hurt by someone within the past year? If so, by whom?: No Are you DNR?: No Advance Directives: No Advance Directives Information Provided: Yes Patient : No Meds Allergies Allergy/AdvReac Type Severity Reaction Status Date / Time No Known Allergies Allergy Verified 01/25/24 09:40 Home Medications ?Medication ?Instructions ?Recorded ?Confirmed ?Last Taken ?Type levothyroxine 50 mcg tablet 100 mcg PO DAILY 07/06/22 10/02/22 03/27/24 History Exam Height,Weight and Vital Signs: Height 5 ft 6.5 in Weight 119.748 kg Assessment and Plan Assessment Anesthesia Assessment: Chart Reviewed Final Anesthetic Review Family History of Problems with Anesthesia: No History of Problems with Anesthesia: No Documented by User: Viry Burgos MD 03/27/24 10:08 PMFSH Past Medical History Medical History Left knee pain Hx of Helicobacter infection Abdominal discomfort History of palpitations Hypothyroid History of Galen thyroiditis Obesity Surgical History Surgical History History of esophagogastroduodenoscopy (EGD) Hx of ovarian cystectomy Social History Social History Household Members: Friend(s) Housing: Apartment Are you a primary health and social care teacher to a significant other at home: No Do you presently have visiting nurse or other home services: No Alcohol intake: never Patient Tobacco Use Status: Never used Tobacco Have you been hit, kicked, punched, or otherwise hurt by someone within the past year? If so, by whom?: No Are you DNR?: No Advance Directives: No Advance Directives Information Provided: Yes Patient : No Meds Allergies Allergy/AdvReac Type Severity Reaction Status Date / Time No Known Allergies Allergy Verified 01/25/24 09:40 Home Medications ?Medication ?Instructions ?Recorded ?Confirmed ?Last Taken ?Type levothyroxine 50 mcg tablet 100 mcg PO DAILY 07/06/22 10/02/22 03/27/24 History Exam Airway Mallampati Class: III TM Dist: <=3cm Neck ROM: Full Heart: rrr Lungs: cta Assessment and Plan Assessment Anesthesia Assessment: Anesthesia Plan Discussed Final Anesthetic Review NPO: Yes ASA Class: III (appears to have untreated) Final Preanesthetic Review: No Changes in Pt Med Stat, Meds/Allgs Chart Reviewed, Consent Obtained/Reviewed and Anes Risks/Benef Reviewed Patient Risk: Intermediate Procedure Risk: Low Anesthetic Plan Anesthetic Plan: MAC: Disposition: Standard PACU
[2024-03-27 09:37] VITALS: PULSE 82; RESP 20; TEMP 36.4; O2SAT 97; BMI 42.3
[2024-03-27 09:43] VITALS: BP 145/95
[2024-03-27] MEDS: Lactated Ringers 1,000 ML 100 ML IVCONT (09:49)
[2024-03-27 09:50] LABS: UPreg QC Valid YES; Urine Pregnancy NEGATIVE (NEGATIVE)
--- NOTE | 2024-03-27 10:08 | MHC.SHP ---
Pre-Procedural Eval Section A - 24 Hr Update-Section A only Date of Service: 03/27/24 Section B - Complete if H&P > 30 days Chief Complaint: Right upper quadrant pain, abn bowel habits Relevant Family History (Specify if Yes): No Relevant Social History: None Present Medications: see Short Stay Collaborative assessment Medical History: Significant History (Left knee pain Hx of Helicobacter infection Abdominal discomfort History of palpitations Hypothyroid History of Galen thyroiditis Obesity) History of Previous Operations: Relevant previous surgery/procedure and date(s) (History of esophagogastroduodenoscopy (EGD) Hx of ovarian cystectomy) Allergies: Allergies Allergy/AdvReac Type Severity Reaction Status Date / Time No Known Allergies Allergy Verified 01/25/24 09:40 Review of Systems Sugical H&P ROS: Negative: Constitution, Cardiovascular, Respiratory, Neurological, Psychiatric, Hem-Onc, Allergic/Immunologic, Gastrointestinal, Genitourinary, Musculoskeletal, Integumentary, Endocrine and Eyes/Ears/Nose/Throat Exam Surgical H&P Exam: Normal: HEENT, Normal: Heart, Normal: Lungs, Normal: Extremities, Normal: Abdomen, Normal: Skin and Normal: Neurological Plan Diagnosis/Plan: Unchanged I have reviewed the history and physical and performed a pertinent physical examination on my patient. No changes have occurred unless specified. Time Spent With Patient Time: Total time managing care of this patient today ____ minutes.
--- NOTE | 2024-03-27 11:08 | P.OPN-COLO_ITS ---
Colonoscopy Operative Note Operative Note Date of Service: 03/27/24 Narrative: Operative Information Procedure Description: EGD, Colonoscopy Indication: abn bowel habits Anesthesia: MAC FLEXIBLE TRANSORAL UPPER GASTROINTESTINAL ENDOSCOPY AND COLONOSCOPY PROCEDURE NOTE UPPER ENDOSCOPY Consent: Indications for the procedure and potential complications of bleeding, perforation, reaction to medications and missed diagnosis were discussed with the patient and informed consent was obtained. Instrument: Olympus GIF H 190 J mid size upper endoscope Monitoring: Vital signs and clinical assessment, continuous EKG monitoring, Pulse oximetry, Carbon Dioxide monitoring and blood pressure monitoring were done throughout the procedure. Procedure: The patient was placed in the left lateral decubitis position and pre-procedure medications were administered and a bite block was placed. The endoscope was inserted into the mouth and advanced under direct vision to the third part of duodenum. A careful inspection was made as the upper endoscope was withdrawn including a retroflexed examination of the proximal stomach; Findings and interventions are described below. Findings: Larynx:normal Esophagus: GE junction at 38 cm, diaphragm hiatus at 38 cm, mild esophagitis, bx taken from GEJ and distal esophagus Stomach: Mild erythema. Biopsies were obtained. Grade 2 flap valve on retroflexed examination of the cardia. Duodenum: Normal bulb and descending duodenum, bx taken Intervention: Biopsies as noted above, COLONOSCOPY Instrument: Olympus variable stiffness ADULT scope 190L - COLOWRAP used as well Colonoscopy Monitoring: Vital signs and clinical assessment, continuous EKG monitoring, Pulse oximetry, Carbon Dioxide monitoring and blood pressure monitoring were done throughout the procedure. Colon withdrawal time was 8 minutes. Procedure: The patient was placed in the left lateral decubitis position and pre-procedure medications were administered. After a digital rectal examination of the ano-rectum, the video colonoscope was inserted into the rectum and advanced through the colon to the cecum/TI. The colonoscope was slowly withdrawn in a retrograde panoramic fashion and the colon mucosa was carefully examined including a retroflexed view of the rectum. Findings and interventions are described below. Procedure Difficulty:moderate Findings: Terminal Ileum-normal, random bx taken random colon bx taken from right and left colon Cecum:normal Ascending Colon: normal Transverse Colon -normal Descending Colon:normal Sigmoid Colon: normal Rectum: Retroflexion with small internal hemorrhoids, grade I Anorectum - normal Colon preparation: [place] Bowel Preparation Scale Right colon; 2 Transverse colon: 2 Left colon; 3 (0 = Unprepared colon segment with mucosa not seen due to solid stool that cannot be cleared. 1 = Portion of mucosa of the colon segment seen, but other areas of the colon segment not well seen due to staining, residual stool and/or opaque liquid. 2 = Minor amount of residual staining, small fragments of stool and/or opaque liquid, but mucosa of colon segment seen well. 3 = Entire mucosa of colon segment seen well with no residual staining, small fragments of stool or opaque liquid) Impression and Post Procedure Diagnosis: Endoscopy Findings: mild esophagitis and gastritis Colonoscopy Findings: internal hemorrhoids Plan: Await Pathology results Repeat Colonoscopy in 10 years or earlier if clinically indicated High fiber diet leaflet avoid straining at stool, epsom salts and sitz bath, anusol supps or cream Above findings were reviewed with the patient and relevant handouts were provided if indicated.
[2024-03-27 11:18] VITALS: BP 101/56; PULSE 81; RESP 20; TEMP 36.6; O2SAT 96
[2024-03-27 11:33] VITALS: BP 114/71; PULSE 73; RESP 16; TEMP 36.6; O2SAT 96
--- OUTSIDE RECORDS SUMMARY | 2024-04-02 00:48 | XMS_ITS ---
Author Organization Shiva Willingham MD Address [address] [place] [id number] Care Team Providers Care Unmanned Equipment Operator Name Role Phone Shiva Willingham Primary Care Provider ALLERGIES No Known Allergies REASON FOR VISIT annual visit MEDICATIONS Medication SIG (Take, Route, Frequency, Duration) Notes [...] times a day for 30 day(s) Not-Taking SOCIAL HISTORY Tobacco Use: Social History Observation Description Date Details (start date - stop date) Never Smoker NA - NA Sex Assigned At : Social History Observation Description Sex Assigned At Unknown Tobacco Use/Smoking Question Answer Notes Patient is a nonsmoker Additional Findings: Tobacco Non-User Cu rrent non-smoker, currently using no form of tobacco Alcohol Screen Question Answer Notes Did you have a drink containing alcohol in the p ast year? No Points 0 Interpretation Negative VITAL SIGNS BMI 59.02 kg/m2 03/25/2024 Blood pressure systolic 122 mm Hg 03/25/20 24 Blood pressure diastolic 74 mm Hg 024 Height 56.5 in 03/25/2024 Weight 268 lbs 03/25/2024 weight is up 3 pounds since 06-28-23 Encounters Encounter Location Date Provider Diagnosis Shiva Willingham MD [address] [place] [phone] 03/25/2024 Shiva Willingham Acquired hypothyroidism E03.9 ; Annual physical exam Z00.00 ; Irritable bowel syndrome with diarrhea K58.0 and Depression screening Z13.31 ASSESSMENTS Encounter Date Diagnosis Assessment Notes Treatment Notes Treatment Clinical Notes 03/25/2024 Acquired hypothyroidism (ICD-10 - E03.9) doing well with good tsh, will continue current regiment 03/25/2024 Annual physical exam (ICD-10 - Z00.00) labs reviewed and discussed with patient 03/25/2024 Irritable bowel syndrome with diarrhea (ICD-10 - K58.0) has still diarrhea. is going to have colonoscopy, 03/25/2024 Depression screening (ICD-10 - Z13.31) negative screen PLAN OF TREATMENT Medication Medication Name Sig Start Date Stop [...] Follow Up: 6 Months, Reason: Provider Name:Shiva freedman, 09/18/2024 10:00:00 AM, [address] [place] [address], [address], [phone], Provider Name:Shiva freedman, 03/13/2025 07:15:00 AM, [address] [place] [address], [address], [phone], Provider Name:Shiva freedman, 03/27/2025 11:00:00 AM, [address] [place] [address], [phone], Progress Notes * Examination Category Sub-Category Detail Notes General Examination GENERAL APPEARANCE: well dev eloped, [...] cyanosi s, or edema BREASTS: done by typewriter assembly and parts inspector RECTAL EXAM: done by typewriter assembly and parts inspector FEMALE GENITOURINARY: done by typewriter assembly and parts inspector ORAL CAVITY: mucosa moist History and Physical Notes * HPI (History of Present Illness) Category Sub-Category Detail Notes Depression Screening PHQ-9 Little inte rest or [...]
--- OUTSIDE RECORDS SUMMARY | 2024-04-02 00:48 | XMS_ITS ---
Author Organization Shiva Willingham MD Address [address] [place], [place] [phone] Care Team Providers Care Electronic Video Games Servicer Name Role Phone Shiva Willingham Primary Care Provider RESULTS Component Value Reference Range Notes UA ClnCatch+Micro w/rflx Cul t Reviewed date:02/29/2024 12:34:58 PM Interpretation: Performing Lab:[facility], [address] [place] [phone] Notes/Report: Urine, Clean Catch Color Urine Yellow Appearance Urine Clear PH 5.5 5.0-9.0 Glucose Urine UA Negative Negative mg/dL Urine Blood Negative Negative Specific [place] - Urine 1.025 1.005-1.025 Urine Protein Negative [...] Date Provider Diagnosis Shiva Willingham MD [address] [place], [place] [phone] 02/29/2024 Shiva Willingham Hematuria R31.9 ASSESSMENTS Encounter Date Diagnosis Assessment Notes Treatment Notes Treatment Clinical Notes 02/29/2024 Hematuria (ICD-10 - R31.9) PLAN OF TREATMENT Next Appt Details Provider Name:Shiva freedman, 09/18/2024 10:00:00 AM, [address] [place] [address] Drive, [address], YANELIS Gilman, [phone], Provider Name:Shiva freedman, 03/13/2025 07:15:00 AM, [address] [place] [address], [address], [place]IS Gilman, [phone], Provider Name:Shiva freedman, 03/27/2025 11:00:00 AM, [address] [place] [address], [address], [place]ELIS Gilman, [phone],
--- OUTSIDE RECORDS SUMMARY | 2024-04-02 00:48 | XMS_ITS ---
Author Organization Shiva Willingham MD Address [address] [facility] [address] [place] [phone] Care Team Providers Care Form Setter Steel Forms Name Role Phone Shiva Willingham Primary Care Provider MEDICATIONS Medication SIG (Take, Route, Frequency, Duration) Notes Start Date End Date Status Levothyroxine Sodium 50 MCG TAKE 2 TABLE TS BY MOUTH ONCE A DAY BUT TUESDAYS TAKE 1 TABLET for 97 Active Encounters Encounter Location Date Provider Diagnosis Shiva Willingham MD [address] [facility] [address] [place] [phone] 02/28/2024 Shiva Willingham PLAN OF TREATMENT Medication Medication Name Sig Start Date Stop Date Notes Levothyroxine Sodium 50 MCG TAKE 2 TABLE TS BY MOUTH ONCE A DAY BUT TUESDAYS TAKE 1 TABLET for 97 Next Appt Details Provider Name:Shiva freedman, 09/18/2024 10:00:00 AM, [address] [place] [address], [address], [phone], Provider Name:Shiva freedman, 03/13/2025 07:15:00 AM, [address] [place] [address], [address], [phone], Provider Name:Shiva freedman, 03/27/2025 11:00:00 AM, [address] [place] [address], [phone],
--- OUTSIDE RECORDS SUMMARY | 2024-04-02 00:49 | XMS_ITS | Patient Health Record ---
Author Organization [facility] Address [address] [place] [address] Care Team Providers Care Utilization Management Rn Name Role Phone Maulik LYNN, Shiva Primary Care Provider Derek Alejandro Jr Unavailable ALLERGIES No Known Allergies REASON FOR REFERRAL No Information MEDICATIONS Medication SIG (Take, Route, Frequency, Duration) Notes Start Date End Date Status Tums 500 MG 1 tablet Orally Once a day for 30 day(s) Active Omeprazole 20 MG 1 capsule Orally Twi ce a day for 14 days 03/01/2021 Active Omeprazole 20 MG 1 capsule 30 minutes before morning meal Orally Once a day for 30 day(s) 01/17/2021 Active Levothyroxine Sodium 100 MCG 1 tablet in the morning on an empty stomach Orally Once a day for 30 day(s) Active Multivitamin - 1 tablet Orally Once a day for 30 day(s) Active IMMUNIZATIONS Vaccine Route Administration Date Status Comme nts Influenza Unknown 01/17/2021 Administered SOCIAL HISTORY Tobacco Use: Social History Observation Description Date Details (start date - stop date) Never Smoker NA - NA Sex Assigned At : Social History Observation Description Sex Assigned At Unknown Tobacco Use/Smoking Question Answer Notes Patient is a nonsmoker Alcohol Screen Question Answer Notes Did you have a drink containing alcohol in the p ast year? No Points 0 Interpretation Negative PROBLEMS Problem Type ICD Code Onset Dates Problem Status W/U Status Risk SNOMED Code Notes Problem Gastroesophageal reflux disease without esophagitis (K21.9) Active confirmed 853572974 Problem Gastritis (K29.70) Active confirmed Gas tritis (1167930) Problem H. pylori infection (A04.8) Active confirmed 531760050 PLAN OF TREATMENT Pending Test Test Name Order Date H pylori Ag Stool 06/15/2021 Future Test Test Name Order Date UPPER GI ENDOSCOPY 01/17/2021 Insurance Providers Payer Name Payer Address Payer Phone Subscriber Number Group Number Insured Name Patient Relationship to Insured Coverage Start Date Coverage End Date [facility] [employer] CLAIM[employer] [address] [place] [address] [id number] EMMA GARRISON Self - patient is the insured MEDICAL (GENERAL) HISTORY Medical History History ICD Code Galen's thyroiditis, hypothyroid Palpitations Surgical History Surgery Date(Month/Year) ovarian cyst removed in late . Hospitalization History Reason Date(Month/Year) hospitalization due to thyroid april 242020
--- OUTSIDE RECORDS SUMMARY | 2024-04-02 00:49 | XMS_ITS | Patient Health Record ---
Author Organization Shiva Willingham MD Address [address] [place], [place] [id number] Care Team Providers Care Criminal Records Technician Name Role Phone Shiva Willingham Primary Care Provider [phone] ALLERGIES No Known Allergies RESULTS Component Value Reference Range Notes PAP SMEAR (THIN PREP) Reviewed date:08/07/2023 03:53:37 PM Interpretation:Negative Performing Lab: Notes/Report: Negative PAP SMEAR (THIN PREP) Complete Blood Count Auto Di ff Reviewed date:09/04/2023 12:42:03 PM Interpretation: Performing Lab:[facility], [address] [place] [phone] Notes/Report: White Blood Count 7.0 4.8-10.8 X10*3/uL Red Blood Count 4.12 4.20-5.50 X10*6/uL Hemoglobin 12.2 12.0-16.0 g/dl Hematocrit 36.9 37.0-47.0 % Mean Corpuscular Volume 89.6 80.0-98.0 fL Mean Corpuscular Hemoglobin 29.6 27.0-33.0 pg Mean Corpuscular HGB Conc 33.1 31.0-35.0 g/dl Red Cell Distribution Width 13.6 11.0-16.0 % Platelet Count 344 160-400 X10*3/uL Mean Platelet Volume 9.7 9.4-12.3 fL Neutrophils Percent Auto 64.7 45-73 % Imm Gran Pct Auto 0.4 0.0-0.4 % Lymphocytes Percent Auto 25.8 20-40 % Monocytes Percent Auto 6.4 2-11 % Eosinophils Percent Auto 2.4 0-4 % Basophils Percent Auto 0.3 0-2 % NRBC Pct Auto 0.0 0.0-0.2 /100WBC Neutrophils Absolute Auto 4.5 2.0-8.3 x10*3/u L Imm Gran Abs Auto 0.03 0.00-0.03 X10*3/uL Lymphocytes Absolute Auto 1.8 1.2-4.9 X10*3/u L Monocytes Absolute Auto 0.5 0.1-1.2 X10*3/uL Eosinophils Absolute Auto 0.2 0.0-0.4 X10*3/u L Basophils Absolute Auto 0.0 0.0-0.2 X10*3/uL NRBC Abs Auto 0.000 0.0-0.012 X10*3/uL Comprehensive Met. Panel Reviewed date:09/04/2023 04:12:45 PM Interpretation: Performing Lab:[address] [phone] Notes/Report: Sodium 140 135-145 mmol/L Potassium 4.3 3.3-5.1 mmol/L Chloride 107 96-108 mmol/L Carbon Dioxide 24 22-29 mmol/L Anion Gap 13 12-20 Blood Urea Nitrogen 9 9-16 mg/dL Creatinine 0.80 0.5-1.4 mg/dL Estimated Glomerular Filt Rate > 60 NOTE: For -Spanish individuals, multiply the result by 1.210. Chronic Kidney Disease: Estimated GFR < 60 mL/min/1.73m2 Severe Kidney Disease: Estimated GFR < 15 mL/min/1.73m2 Glucose Random 90 60-115 mg/dL Calcium 9.1 8.4-10.2 mg/dL Bilirubin Total 0.3 0.0-1.0 mg/dL Aspartate Amino Transferase 18 5-31 U/L Alanine Aminotransferase 19 0-31 U/L Total Protein 7.1 6.5-8.0 g/dL Albumin Level 3.9 3.5-5.0 g/dL Alkaline Phosphatase 73 39-117 U/L C Reactive Protein Reviewed date:09/04/2023 12:38:08 PM Interpretation: Performing Lab:[address] [phone] Notes/Report: C Reactive Protein 1.36 < or = 0.50 mg/dL Vitamin B12 and Folate Reviewed date:09/04/2023 12:34:21 PM Interpretation: Performing Lab:[address] [phone] Notes/Report: Vitamin B12 438 200-900 pg/mL NORMAL 200-900 PG/ML INDETERMINATE 160-199 PG/ML DEFICIENT < 160 PG/ML Folate 9.7 > or = 4.0 ng/mL Reference Values: > or = 4.0 ng/mL < 4.0 ng/mL suggests folate deficiency Methotrexate, aminopterin and folinic acid (leucovorin) are chemotherapeutic agents whose molecular structures are similar to folate; therefore, the [employer] folate assay cannot be used for patients using these drugs. Immunoglobulins,IgG IgA IgM Reviewed date:09/07/2023 08:51:54 PM Interpretation: Performing Lab:[address] [phone] Notes/Report: IgG 8718 669-5861 mg/dL IgA 279 47-310 mg/dL IgM 195 50-300 mg/dL THIS TEST WAS PERFORMED AT: [facility] [address] [place] [phone] PRASHANT JENNINGS MD Transglutaminase Ab IgG Reviewed date:09/07/2023 08:51:46 PM Interpretation: Performing Lab:[address] [phone] Notes/Report: Transglutaminase Ab IgG <1.0 Value Interpretation ----- <15.0 Antibody not detected > or = 15.0 Antibody detected THIS TEST WAS PERFORMED AT: [facility] [address] [place] [phone] PRASHANT JENNINGS MD US abdomen complete Reviewed date:09/06/2023 01:01:46 PM Interpretation: Performing Lab: Notes/Report: [address] [address] Ultrasound Report Signed Patient: Dee Cochran MR#: [id number] : 1980 Acct:[id number] Age/Sex: 42 / F ADM Date: 09/04/23 Loc: HO.US Attending Dr: Alvina Chan MD Ordering Physician: Alvina Chan MD Date of Service: 09/04/23 Procedure(s): US abdomen complete Accession Number(s): [id number] cc: Shiva Willingham MD; Alvina Chan MD EXAMINATION: US ABDOMEN COMPLETE CLINICAL INFORMATION: Right upper quadrant pain. COMPARISON: CT abdomen and pelvis 11/07/2022. Ultrasound kidneys and bladder 07/14/2022. TECHNIQUE: Real-time imaging of the abdominal viscera. FINDINGS: PANCREAS: The head and body appear normal. The tail is obscured by bowel gas. ABDOMINAL AORTA: The proximal, mid, and distal segments are normal in caliber. INFERIOR VENA CAVA: Visualized portions are normal. LIVER: The liver is normal in size. The liver contour is normal. There is diffuse increased liver parenchymal echogenicity, consistent with hepatic steatosis. No focal hepatic lesion. There is no intrahepatic biliary duct dilatation seen. GALLBLADDER: Normal. The gallbladder is physiologically distended without evidence of stones, sludge, polyps, wall thickening or pericholecystic fluid. COMMON BILE DUCT: Normal in caliber measuring 0.4 cm in diameter. RIGHT KIDNEY: Normal. No hydronephrosis. No renal calculi or focal parenchymal lesions. The kidney measures 12.1 cm in maximum dimension. LEFT KIDNEY: Punctate nonobstructing calculi in the lower pole. No hydronephrosis. No renal calculi or focal parenchymal lesions. The kidney measures 11.5 cm in maximum dimension. SPLEEN: Normal. The spleen measures 11.6 cm in maximum dimension. FREE FLUID: None. US/US abdomen complete IMPRESSION: Hepatic steatosis. Punctate nonobstructing calculi in the lower pole of the left kidney. No hydronephrosis. Dictated By: Samuel Vega MD Signed By: <Electronically signed by Samuel Vega MD in OV> 09/06/23 1131 DD/ 0904 TD/TT: Public Health Registrar: KYLIE Complete Blood Count Auto Di ff Reviewed date:02/28/2024 12:43:15 PM Interpretation: Performing Lab:[facility], [address] [place] [phone] Notes/Report: White Blood Count 7.6 4.8-10.8 X10*3/uL Red Blood Count 4.21 4.20-5.50 X10*6/uL Hemoglobin 12.4 12.0-16.0 g/dl Hematocrit 37.9 37.0-47.0 % Mean Corpuscular Volume 90.0 80.0-98.0 fL Mean Corpuscular Hemoglobin 29.5 27.0-33.0 pg Mean Corpuscular HGB Conc 32.7 31.0-35.0 g/dl Red Cell Distribution Width 13.7 11.0-16.0 % Platelet Count 365 160-400 X10*3/uL Mean Platelet Volume 9.9 9.4-12.3 fL Neutrophils Percent Auto 58.9 45-73 % Imm Gran Pct Auto 0.3 0.0-0.4 % Lymphocytes Percent Auto 30.6 20-40 % Monocytes Percent Auto 6.7 2-11 % Eosinophils Percent Auto 3.4 0-4 % Basophils Percent Auto 0.1 0-2 % NRBC Pct Auto 0.0 0.0-0.2 /100WBC Neutrophils Absolute Auto 4.5 2.0-8.3 x10*3/u L Imm Gran Abs Auto 0.02 0.00-0.03 X10*3/uL Lymphocytes Absolute Auto 2.3 1.2-4.9 X10*3/u L Monocytes Absolute Auto 0.5 0.1-1.2 X10*3/uL Eosinophils Absolute Auto 0.3 0.0-0.4 X10*3/u L Basophils Absolute Auto 0.0 0.0-0.2 X10*3/uL NRBC Abs Auto 0.000 0.0-0.012 X10*3/uL Comprehensive Strandquist. Panel Fa st Reviewed date:02/28/2024 01:27:23 PM Interpretation: Performing Lab:[facility], [address] [place] [phone] Notes/Report: Sodium 138 135-145 mmol/L Potassium 4.1 3.3-5.1 mmol/L Chloride 107 96-108 mmol/L Carbon Dioxide 23 22-29 mmol/L Anion Gap 12 12-20 Blood Urea Nitrogen 12 9-16 mg/dL Creatinine 0.71 0.5-1.4 mg/dL Estimated Glomerular Filt Rate > 60 NOTE: For -Spanish individuals, multiply the result by 1.210. Chronic Kidney Disease: Estimated GFR < 60 mL/min/1.73m2 Severe Kidney Disease: Estimated GFR < 15 mL/min/1.73m2 Glucose Fasting 91 60-99 mg/dL Calcium 9.0 8.4-10.2 mg/dL Bilirubin Total 0.2 0.0-1.0 mg/dL Aspartate Amino Transferase 26 5-31 U/L Alanine Aminotransferase 21 0-31 U/L Total Protein 7.0 6.5-8.0 g/dL Albumin Level 3.8 3.5-5.0 g/dL Alkaline Phosphatase 84 39-117 U/L Lipid Panel Reviewed date:02/28/2024 01:27:05 PM Interpretation: Performing Lab:[facility], [address] [place] [phone] Notes/Report: Triglycerides 221 <150 mg/dL Desirable Triglyceride: less than 150 mg/dL Borderline High Triglyceride 150-199 mg/dL High Triglyceride: 200-499 mg/dL Very High Triglyceride: greater than or equal to 5OO mg/dL Cholesterol 181 <200 mg/dL Desirable Cholesterol: less than 200 mg/dL Borderline High Cholesterol: 200-239 mg/dL High Cholesterol: greater than 239 mg/dL LDL Cholesterol Calculated 92 <100 mg/dL Desirable LDL: less than 100 mg/dL Near Optimal/Above Optimal LDL: 110-129 mg/dL Borderline High LDL: 130-159 mg/dL High LDL: 160-189 mg/dL Very High LDL: greater than or equal to 190 mg/dL HDL Cholesterol 45 >40 mg/dL Desirable HDL: greater than 40 mg/dL Note: This HDL assay may give artificially low results in patients with liver disease. TSH reflex Free T4 Reviewed date:02/28/2024 01:26:55 PM Interpretation: Performing Lab:[facility], [address] [place] [phone] Notes/Report: TSH reflex Free T4 2.19 0.32-4.0 uIU/mL UA ClnCatch+Micro w/rflx Cul t Reviewed date:02/29/2024 06:14:19 AM Interpretation: Performing Lab:[facility], [address] [place] [phone] Notes/Report: Urine, Clean Catch Color Urine Yellow Appearance Urine Clear PH 6.0 5.0-9.0 Glucose Urine UA Negative Negative mg/dL Urine Blood Trace Negative Specific Freeman - Urine 1.020 1.005-1.025 Urine Protein Negative Neg-Trace mg/dL Urine Ketones Negative Negative mg/dL Nitrite Urine Negative Negative Leukocyte Esterase Urine Negative Negative RBC Urine 6-10 0-2 /HPF WBC Urine 0-5 0-5 /HPF Squamous Epithelial Cell Urine 6-10 0-2 /HPF Bacteria Urine None Seen None Seen Hyaline Casts Urine 0-2 0-2 /LPF UA ClnCatch+Micro w/rflx Cul t Reviewed date:02/29/2024 12:34:58 PM Interpretation: Performing Lab:[address] [phone] Notes/Report: Urine, Clean Catch Color Urine Yellow Appearance Urine Clear PH 5.5 5.0-9.0 Glucose Urine UA Negative Negative mg/dL Urine Blood Negative Negative Specific Freeman - Urine 1.025 1.005-1.025 Urine Protein Negative Neg-Trace mg/dL Urine Ketones Negative Negative mg/dL Nitrite Urine Negative Negative Leukocyte Esterase Urine Negative Negative RBC Urine 0-2 0-2 /HPF WBC Urine 0-5 0-5 /HPF Squamous Epithelial Cell Urine 0-2 0-2 /HPF Bacteria Urine None Seen None Seen Hyaline Casts Urine 0-2 0-2 /LPF Ur Preg Test Reviewed date:03/27/2024 12:49:52 PM Interpretation: Performing Lab:[facility], [address] [place] [phone] Notes/Report: Urine NEGATIVE NEGATIVE This test was developed to detect early . False negative results may occur after the 5th - 7th week of when using this test method. If clinically indicated, consider a serum hCG. Pathology Reviewed date:03/31/2024 12:58:34 PM Interpretation: Performing Lab:[facility], [address] [place] [phone] Notes/Report: REASON FOR REFERRAL Reason chronic diarrhea Diagnosis 1 Chronic diarrhea (K5 2.9) Referral Organization Shiva Willingham MD Referring Provider First Name Shiva Referring Provider Last Name Maulik Referring Provider Speciality Internal M edicine Referred Provider Alvina Chan Referred Provider Specialty Gastroentero logy General Notes Lauren Pinzon 09:45:43 AM EST > info faxed , Humaira Pinzonette 06/29/2023 08:20:53 AM EST > info mailed to patient Referral Priority Routine Referral Appointment Date 08/27/2023 MEDICATIONS Medication SIG (Take, Route, Frequency, Duration) [...] times a day for 30 day(s) Not-Taking IMMUNIZATIONS Vaccine Route Administration Date Status Comme nts Fluarix Quadrivalent Unknown 03/07/2020 Administered CV S Covid Vaccine Unknown 08/02/2020 Administered Pfizer Covid Vaccine Unknown 08/23/2020 Administered Pfizer Fluarix Quadrivalent Unknown 02/08/2021 Refused Fluarix Quadrivalent Unknown 02/14/2022 Refused Fluarix Quadrivalent Unknown 02/08/2023 Refused SOCIAL HISTORY Tobacco Use: Social History Observation [...] W/U Status Risk SNOMED Code Notes Problem Obesity, morbid, BMI 50 or higher (E66.01) Active confirmed 666395129 Problem Thoracic outlet syndrome (G54.0) Active confirmed 571407844 Problem Acquired hypothyroidism (E03.9) Active confirmed 554293958 Problem Muscle twitching (R25.3) Active confirmed 39725270 Problem Diverticulum of esophagus, acquired (K22.5) Active confirmed Acquired diverticulum of esophagus (14100719) Problem Bilateral carpal tunnel syndrome (G56.03) Active confirmed 16864461 Problem Kidney stone (N20.0) Active confirmed 42614694 Problem Irritable bowel syndrome with diarrhea (K58.0) Active confirmed 961581906 VITAL SIGNS Blood pressure diastolic 74 mm Hg 03/25/2024 garcía ght is up 3 pounds since 06-28-23 Height 56.5 in 03/25/2024 weight is up 3 pounds since 06-28-23 Blood pressure systolic 122 mm Hg 03/25/2024 weig ht is up 3 pounds since 06-28-23 Weight 268 lbs 03/25/2024 weight is up 3 pounds since 06-28-23 BMI 59.02 kg/m2 03/25/2024 weight is up 3 pounds since 06-28-23 PROCEDURES Procedure Date Ordered Date Performed Result Body Sit e Colonoscopy, Screening 03/27/2024 03/27/2024 repeat 10y Encounters Encounter Location Date Provider Diagnosis Shiva Willingham MD [address] [place] [id number] 03/25/2024 Shiva Willingham Acquired hypothyroidism E03.9 ; Annual physical exam Z00.00 ; Irritable bowel syndrome with diarrhea K58.0 and Depression screening Z13.31 Shiva Willingham MD [address] [place] [id number] 02/28/2024 Shiva Willingham Blood tests for routine general physical examination Z00.00 and Acquired hypothyroidism E03.9 Shiva Willingham MD [address] [place] [id number] 02/29/2024 Shiva Willingham Hematuria R31.9 Shiva Willingham MD [address] [place] [id number] 06/28/2023 Shiva Willingham Chronic diarrhea K52 .9 Shiva Willingham MD [address] [place] [id number] 04/20/2023 Shiva Willingham MD [address] [place] [address] Drive [address] [place] [id number] 02/28/2024 Shiva Willingham ASSESSMENTS Encounter Date Diagnosis Assessment Notes Treatment Notes Treatment Clinical Notes 03/25/2024 Annual physical exam (ICD-10 - Z00.00) labs reviewed and discussed with patient 03/25/2024 Acquired hypothyroidism (ICD-10 - E03.9) doing well with good tsh, will continue current regiment 02/28/2024 Acquired hypothyroidism (ICD-10 - E03.9) 02/28/2024 Blood tests for routine general physical examination (ICD-10 - Z00.00) 06/28/2023 Chronic diarrhea (ICD-10 - K52.9) referral to [facility] gastroenterology 03/25/2024 Irritable bowel syndrome with diarrhea (ICD-10 - K58.0) has still diarrhea. is going to have colonoscopy, 02/29/2024 Hematuria (ICD-10 - R31.9) 03/25/2024 Depression screening (ICD-10 - Z13.31) negative screen PLAN OF TREATMENT Pending Test Test Name Order Date URINE CULTURE 10/08/2020 XR GI SERIES 01/06/2021 CTA CHEST FOR PE 02/24/2022 US pelvic complete 12/11/2022 US pelvic and transvaginal 12/14/2022 Next Appt Details Provider Name:Shiva An ier, 09/18/2024 10:00:00 AM, [address] [place] [address], [address], [phone], Provider Name:Shiva An ier, 03/13/2025 07:15:00 AM, [address] [place] [address], [address], [phone], Provider Name:Shiva An ier, 03/27/2025 11:00:00 AM, [address] [place] [address], [address], [phone], Insurance Providers Payer Name Payer Address Payer Phone Subscriber Number Group Number Insured Name Patient Relationship to Insured Coverage Start Date Coverage End Date [employer] [address] [place], [place] [id number] Dee Cochran Self - patient is the insured MEDICAL (GENERAL) HISTORY Medical History History ICD Code MUST BE ON 50 MCG PILLS TO Jass JIN UP HER DOSAGE IT DOES NOT HAVE FILLERS IN IT. ALL OTHERS DO colonoscopy 03/27/24 repeat 10y
== END 2024-03-27 11:51 | disposition home or self-care (01) ==
PROVIDERS: Nurse Practitioner; PCP Internal Medicine; Visit Provider Internal Medicine Gastroenterology
PROC: (CPT 45380; principal; 2024-03-27 10:40)
DX: R19.4 Change in bowel habit (principal); K64.0 First degree hemorrhoids; R10.11 Right upper quadrant pain; K29.60 Other gastritis without bleeding; K20.80 Other esophagitis without bleeding; K44.9 Diaphragmatic hernia without obstruction or gangrene; K64.4 Residual hemorrhoidal skin tags; E03.9 Hypothyroidism, unspecified; E66.9 Obesity, unspecified; Z68.41 Body mass index [BMI] 40.0-44.9, adult; Z79.899 Other long term (current) drug therapy; Z98.890 Other specified postprocedural states
CPT/HCPCS: 45380; 43239; 81025; 88305; 88313; 88342; J1596; J2003; J2704

== ENCOUNTER → 2024-03-27 09:04 | Outpatient (BNV) | payer BC, SELFPAY | PROVIDERS: PCP Internal Medicine; Visit Provider Internal Medicine Gastroenterology | DX: R19.4 Change in bowel habit (principal); K64.0 First degree hemorrhoids; K20.90 Esophagitis, unspecified without bleeding; K29.70 Gastritis, unspecified, without bleeding | CPT/HCPCS: 43239; 45380 ==

== ENCOUNTER → 2024-05-16 09:45 | Outpatient (BNVA) | payer BC, SELFPAY | PROVIDERS: PCP Internal Medicine; Visit Provider Internal Medicine Gastroenterology ==

== ENCOUNTER → 2024-06-23 10:50 | Outpatient (REF) | payer BC, SELFPAY ==
--- NOTE | ~2024-06-23 | NM_ITS ---
EXAMINATION: NM BILIARY TRACT CLINICAL INFORMATION: Right upper quadrant pain COMPARISON: Ultrasound abdomen complete 09/04/2023 TECHNIQUE: Following intravenous administration of 5 mCi of technetium 99m mebrofenin, imaging over the right upper quadrant was obtained up to 60 minutes. 2.4 mcg of CCK was given over 30 minutes at 60 minutes and imaging obtained. Next 30 minutes. FINDINGS: There is normal hepatic uptake without any focal defects or enlargement. Gallbladder is visualized by 30 minutes. CBD and small bowel is visualized by 13-14 minutes. Post-CCK the gallbladder ejection fraction At 10 minutes is 13%, At 20 minutes is 69% and At 30 minutes is 84%. NM/NM hepatobiliary w pharm IMPRESSION: Normal HIDA scan. Normal gallbladder ejection fraction of 84% at 30 minutes post CCK . Electronically signed by: Delano Zayas MD 06/24/2024 07:33 AM BILLY
--- OUTSIDE RECORDS SUMMARY | 2024-06-23 12:48 | XMS_ITS | Patient Health Record ---
Author Organization [facility] Address [address] [place] [address] Care Team Providers Care Rn Neurosurgical Name Role Phone Maulik LYNN, Shiva Primary [...] reflux disease without esophagitis (K21.9) Active confirmed [id number] Problem Gastritis (K29.70) Active confirmed Gas tritis (8916132) Problem H. pylori infection (A04.8) Active confirmed 101401007 PLAN OF TREATMENT Pending Test Test Name Order Date H pylori Ag Stool 06/15/2021 Future Test Test Name Order Date UPPER GI ENDOSCOPY 01/17/2021 Insurance Providers Payer Name Payer Address Payer Phone Subscriber Number Group Number Insured Name Patient Relationship to Insured Coverage Start Date Coverage End Date [employer] [address] [place] [address] [id number] EMMA GARRISON Self - patient is the insured MEDICAL (GENERAL) HISTORY Medical History History ICD Code Galen's thyroiditis, hypothyroid Palpitations Surgical History Surgery Date(Month/Year) ovarian cyst removed in late . Hospitalization History Reason Date(Month/Year) hospitalization due to thyroid april 242020
--- OUTSIDE RECORDS SUMMARY | 2024-06-23 12:48 | XMS_ITS ---
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 Name Role Phone Shiva Willingham Primary Care [...] Location Date Provider Diagnosis Shiva Willingham MD [address] [place] [address] Drive [address] [place] [phone] 03/25/2024 Shiva Willingham Acquired hypothyroidism E03.9 ; [...] Reason: Provider Name:Shiva freedman, 09/18/2024 10:00:00 AM, [address] [place] [address], Suite [facility], [place], [place], [phone], Provider Name:Shiva freedman, 03/13/2025 07:15:00 AM, [address] [place] [address], [address] [place] [address], [phone], Provider Name:Shiva freedman, 03/27/2025 11:00:00 AM, [address] [place] [address], [address], [phone], Progress Notes * Dee COCHRANDOB:1980 ( 43 yo F)Acc No.[id number]:03/25/2024 Progress Notes Patient:?Dee Cochran Provider:?Shiva Willingham MD :1980???Age:43 Y???Sex:Female D ate:03/25/2024 [facility] [id number] Subjective: * Chief Complaints: * ???Annual visit * HPI: ???Depression Screening:?PHQ-9?Little interest or pleasure in doing things?Not at all,?Feeling down, depressed, or hopeless?Not at all,?Trouble falling or staying asleep, or sleeping too much?Not at all,?Feeling tired or having little energy?Not at all,?Poor appetite or overeating?Not at all,?Feeling bad about yourself or that you are a failure, or have let yourself or your family down?Not at all,?Trouble concentrating on things, such as reading the newspaper or watching television?Not at all,?Moving or speaking so slowly that other people could have noticed; or the opposite, being so fidgety or restless that you have been moving around a lot more than usual?Not at all,?Thoughts that you would be better off or of hurting yourself in some way?Not at all,?Total Score?0.?Interpretation and Intervention?Depression Screening Findings?Negative,?Follow-Up for Depression?: review of PHQ-9 found negative result, no follow-up needed.?Communication Needs:?Communication Needs?Does the patient have a hearing impairment?No,?Does the patient have a vision impairment??No,?Does the patient have a cognition impairment??No.?SDOH Questions:?SDOH Questions?In the past year have you been worried about losing housing??No,?In the past year have you or any family members you live with been unable to get any of the following when it was really needed? Check all that apply:?None.?Symptom(s):? patient is a 43 yo female here for annual visit with review of recent labs and follow up of chronic issues. here for yearly evaluation. still with loose stools. getting another colonoscopy this week. * ROS:?General/Constitutional:?Patient denies?fatigue , headache.?Change in appetite?denies.?Chills?denies.?Fever?denies.?Ophthalmologic:?Blurred vision?denies.?Discharge?denies.?Pain?denies.?ENT:?Patient denies?decreased sense of smell , any loss of taste , sore throat.?Decreased hearing?denies.?Sore throat?denies.?Swollen glands?denies.?Endocrine:?Cold intolerance?denies.?Excessive thirst?denies.?Heat intolerance?denies.?Weight loss?denies.?Respiratory:?Cough?denies.?Shortness of breath at rest?denies.?Shortness of breath with exertion?denies.?Wheezing?denies.?Cardiovascular:?Chest pain at rest?denies.?Chest pain with exertion?denies.?Irregular heartbeat?denies.?Shortness of breath?denies.?Gastrointestinal:?Abdominal pain?denies.?Change in bowel habits?denies.?Diarrhea?denies.?Nausea?denies.?Rectal bleeding?denies.?Vomiting?denies .?Genitourinary:?Blood in urine?denies.?Difficulty urinating?denies.?Frequent urination?denies.?Urinary incontinence?Denies.?Musculoskeletal:?Patient denies?muscle aches.?Painful joints?denies.?Weakness?denies.?Peripheral Vascular:?Patient denies?red and blue toes.?Skin:?Dry skin?denies.?Itching?denies.?Denies?Mole(s),? changes in moles, new moles or any lesions of concern.?Denies?Photosensitivity.?Rash?denies.?Neurologic:?Dizziness?denies.?Fainting?denies.?Headache?denies.? * Medical History:? * Surgical History:? * Hospitalization/Major Diagno stic Procedure:? * Family History:?Father: dece ased 40 yrs.?Mother: alive 70 yrs, diagnosed with Hypertension.?2 brother(s) . .? fATHER- mi MOTHER HEALTHY, Denies mental health/substance abuse family history, Denies mental health/substance abuse family history, No pertinent family medical history. * Social History:?Tobacco Use:?Tobacco Use/Smoking?Patient is a?nonsmoker,?Additional Findings: Tobacco Non-User?Current non-smoker, currently using no form of tobacco.?Drugs/Alcohol:?Alcohol Screen?Did you have a drink containing alcohol in the past year??No,?Points?0,?Interpretation?Negative.?Miscellaneous:?Caffeine: yes, frequency:, 1-2 cups per day. no Children. Community involvements: yes. Exercise: yes, body weights every day. Home smoke detector use: yes. Housing: renting. Living with: friends. Occupation: weeks/months/years, works full-time. Pets: cats: dogs: 1 dog. no Travel outside of the [place]. * Medications:?TakingLevothyro xine Sodium 50 MCG Tablet TAKE 2 TABLETS [...] reviewed and reconciled with the patient * Allergies:?N.K.D.A.yes[Aller chary Verified] Objective: * Vitals:?Ht: 56.5, Wt:268, BM I:59.02, BP:122/74 weight is up 3 pounds since 06-28-23. * ???Past Orders: ???Lab:Lipid Panel (Order Da te - 02/28/2024) (Collection Date - 02/28/2024) ? Value Reference Range ?Triglycerides 221 H <150 - mg/dL ?Cholesterol 181 <200 - m g/dL ?LDL Cholesterol Calculated 92 <100 - mg/dL ?HDL Cholesterol 45 >40 - mg/dL ???Lab:TSH reflex Free T4 (O rder Date - 02/28/2024) (Collection Date - 02/28/2024) ? Value Reference Range ?TSH reflex Free T4 2.19 0 .32-4.0 - uIU/mL Lab:UA ClnCatch+Micro w/rflx Cult * Order Date 02/29/2024 02/28/2024 Color Urine Yellow Yellow Appearance Urine Clear Clear PH 5.5 (Ref Range: 5.0-9.0) 6.0 (Ref Range: 5.0-9.0) Glucose Urine UA Negative (Ref Range: Negative mg/dL) Negative (Ref Range: Negative mg/dL) Urine Blood Negative (Ref Range: Negative) Trace?A (Ref Range: Negative) Specific [place] - Urine 1.025 (Ref Range: 1.005-1.025) 1.020 (Ref Range: 1.005-1.025) Urine Protein Negative (Ref Range: Neg-Trace mg/dL) Negative (Ref Range: Neg-Trace mg/dL) Urine Ketones Negative (Ref Range: Negative mg/dL) Negative (Ref Range: Negative mg/dL) Nitrite Urine Negative (Ref Range: Negative) Negative (Ref Range: Negative) Leukocyte Esterase Urine Negative (Ref Range: Negative) Negative (Ref Range: Negative) RBC Urine 0-2 (Ref Range: 0-2 /HPF) 6-10?A (Ref Range: 0-2 /HPF) WBC Urine 0-5 [...] Blood Count7.64.8-10.8 - X10*3/uL?Red Blood Count4.214.20-5.50 - X10*6/uL?Ofwzazgywy56.4 12.0-16.0 - g/dl?Gextzwticq46.937.0-47.0 - %?Mean Corpuscular Wmswmr71.080.0-98.0 - fL?Mean Corpuscular Lppfzjcmde96.527.0-33.0 - pg ?Mean Corpuscular HGB Conc32.731.0-35.0 - g/dl?Red Cell Distribution Width13.711.0-16.0 - %?Platelet Mytha571181-177 - X10*3/uL ?Mean Platelet Volume9.99.4-12.3 - fL?Neutrophils [...] - X10*3/uL?NRBC Abs Auto0.0000.0-0.012 - X10*3/uL ???Lab:[facility]prehensive [facility]. Panel Fast (Order Date - 02/28/2024) (Collection Date - 02/28/2024)?ValueReference Range?Ttdkvc812244-869 - mmol/L ?Bilirubin Total0.20.0-1.0 - mg/dL?Aspartate Amino Hjzordabwuc719- 31 - U/L?Alanine Dskklarfpviannvf850-55 - U/L?Total Protein7.06.5- 8.0 - g/dL?Albumin Level3.83.5-5.0 - g/dL?Alkaline Kanwtfmydwd62 39-117 - U/L?Potassium4.13.3-5.1 - mmol/L?Mmtmuiey71257-045 - mmol/L?Carbon Xclwcml7148-84 - mmol/L?Anion Ghz4081-03 - ?Blood Urea Sdnqxmll657-12 - mg/dL?Creatinine0.710.5-1.4 - mg/dL ?Estimated Glomerular Filt Rate> 60-?Glucose Zhyqjkl5155-51 - mg/dL?Calcium9.08.4-10.2 - mg/dL * Examination: ???General Examination: ?GENERAL APPEARANCE:?well developed, well nourished, in no acute distress.?HEAD:?normocephalic, atraumatic.?EYES:?pupils equal, round, reactive to light and accommodation, sclera non-icteric.?EARS:?normal.?ORAL CAVITY:?mucosa moist.?THROAT:?clear.?NECK/THYROID:?neck supple, full range of motion, no cervical lymphadenopathy, no bruits.?SKIN:?warm and dry, no suspicious lesions.?HEART:?regular rate and rhythm, S1, S2 normal, no murmurs.?LUNGS:?clear to auscultation bilaterally.?BREASTS:?done by manager spring.?ABDOMEN:?soft, nontender, nondistended, bowel sounds present, normal, no organomegaly , no masses palpable.?RECTAL EXAM:?done by manager spring.?FEMALE GENITOURINARY:?done by manager spring.?EXTREMITIES:?no clubbing, cyanosis, or edema.?NEUROLOGIC:?nonfocal, motor strength normal upper and lower extremities, sensory exam intact.? Assessment: * Assessment: 1.?Annual physical exam - Z0 0.00 (Primary)?2.?Acquired hypothyroidism - E03.9?3.?Irritable bowel syndrome with diarrhea - K58.0?4.?Depression screening - Z13.31? Plan: * Treatment: 2.?Acquired hypothyroidism? Continue Levothyroxine Sodium Tablet, 50 MCG, TAKE 2 TABLETS BY MOUTH ONCE A DAY BUT TUESDAYS TAKE 1 TABLET.?? Notes: doing well with good tsh, will continue current regiment?? 3.?Irritable bowel syndrome with diarrhea? Notes: has still diarrhea. is going to have colonoscopy, ?? 4.?Depression screening? Notes: negative screen?? * Procedure Codes:? * Follow Up:?6 Months * * Sign off status: Completed true * Provider:?Shiva Willingham MD Date:?1 05/26/2023 Generated for ConcettaNerdies meghan/Hung/eTransmitting on:?06/23/2024 12:48 PM EST History and Physical Notes * HPI [...] Total Score: 0 Interpretation and Intervention Depression Williame eli Findings: Negative Follow-Up for Depression: : review [...] cyanosi s, or edema BREASTS: done by manager spring RECTAL EXAM: done by manager spring FEMALE GENITOURINARY: done by manager spring ORAL CAVITY: mucosa moist
--- OUTSIDE RECORDS SUMMARY | 2024-06-23 12:48 | XMS_ITS | Clinical Summary ---
Author Organization [facility] Address [address] [place] [address] Phone Care Team Providers Care Assembler Installer General Name Role Phone Shiva Willingham MD Primary Care Provider Allergies No known active allergies Medications levothyroxine (SYNTHROID, LEVOTHROID) 112 MCG tablet Take 112 mcg by mouth 1 (one) time each day 06/16/2020 Active propranolol (INDERAL) 20 MG tablet Take 1 tablet by mouth 1 (one) time each day 09/18/2020 Active nystatin (MYCOSTATIN) 344252 UNIT/ML suspension Take 5 mL by mouth 4 (four) times a day Active Active Problems Problem Noted Date Diagnosed Date Renal insufficiency 06/23/2020 Acute nontraumatic kidney injury 06/23/2020 Rash and other nonspecific skin eruption 019 Contact dermatitis 03/05/2019 Family History Medical History Relation Comments Heart disease Father Hypertension Mother Relation Status Comments Father Mother Social History Tobacco Use Types Packs/Day Years Used Date Smoking Tobacco: Never Smokeless Tobacco: Never Comments Unknown Sex and Gender Information Value Date Recorded Sex Assigned at Not on file Legal Sex Female 9:54 AM EST Gender Identity Not on file Sexual Orientation Not on file Last Filed Vital Signs Vital Sign Reading Time Taken Comments Blood Pressure 104/70 10/06/2020 3:07 PM EDT Pulse 70 10/06/2020 3:07 PM EDT Temperature - - Respiratory Rate - - Oxygen Saturation 99% 10/06/2020 3:07 PM EDT Inhaled Oxygen Concentration - - Weight 105 kg (232 lb) 10/06/2020 3:07 PM EDT Height - - Body Mass Index - - Plan of Treatment Health Maintenance Due Date Last Done Comments Pneumococcal Vaccine: Pediat rics (0 to 5 Years) and At-Risk Patients (6 to 64 Years) (1 of 2 - PCV) 12/09/1985 Hepatitis B Vaccine (1 of 3 - 19+ 3-dose series) 12/09 Influenza Vaccine (#1) 2023 Insurance [facility] Care Teams Assembler Installer General Relationship Specialty Start Date End Date Shiva Willingham MD [id number] [place], [place] PCP - General Internal Medicine 10/06/20
--- OUTSIDE RECORDS SUMMARY | 2024-06-23 12:48 | XMS_ITS | Patient Health Record ---
Author Organization Shiva Willingham MD Address [address] [place], [place] [id number] Care Team Providers Care Agency Owner Name Role Phone Shiva Willingham Primary Care Provider Allergies No Known Allergies Results Component Value Reference Range Notes Complete Blood Count Auto Di ff Reviewed date:02/28/2024 12:43:15 PM Interpretation: Performing Lab:[facility], [address] [place] [phone] Notes/Report: White Blood Count 7.6 4.8-10.8 X10*3/uL [...] 0.0-0.2 /100WBC Neutrophils Absolute Auto 4.5 2.0-8.3 x10*3/uL Imm Gran Abs Auto 0.02 0.00-0.03 X10*3/uL Lymphocytes Absolute Auto 2.3 1.2-4.9 X10*3/uL Monocytes Absolute Auto 0.5 0.1-1.2 X10*3/uL Eosinophils Absolute Auto 0.3 0.0-0.4 X10*3/uL Basophils Absolute Auto 0.0 0.0-0.2 X10*3/uL NRBC Abs Auto 0.000 0.0-0.012 X10*3/uL Comprehensive [place]. Panel Fa st Reviewed date:02/28/2024 01:27:23 PM Interpretation: Performing Lab:[facility], [address] [place] [phone] Notes/Report: Sodium 138 135-145 mmol/L Potassium 4.1 3.3-5.1 mmol/L Chloride 107 96-108 mmol/L Carbon Dioxide 23 22-29 mmol/L Anion Gap 12 12-20 Blood Urea Nitrogen 12 9-16 mg/dL Creatinine 0.71 0.5-1.4 mg/dL Estimated Glomerular Filt Rate > 60 NOTE: For -Bangladeshi individuals, multiply the result by 1.210. Chronic [...] Panel Reviewed date:02/28/2024 01:27:05 PM Interpretation: Performing Lab:[facility], [address] [place] [phone] Notes/Report: Triglycerides 221 <150 mg/dL Desirable Triglyceride: [...] T4 Reviewed date:02/28/2024 01:26:55 PM Interpretation: Performing Lab:[address] [phone] Notes/Report: TSH reflex Free T4 2.19 0.32-4.0 uIU/mL UA ClnCatch+Micro w/rflx Cul t Reviewed date:02/29/2024 06:14:19 AM Interpretation: Performing Lab:[facility], [address] [place] [phone] Notes/Report: Urine, Clean Catch Color Urine Yellow Appearance Urine Clear PH 6.0 5.0-9.0 Glucose Urine UA Negative Negative mg/dL Urine Blood Trace Negative Specific [place] - Urine 1.020 1.005-1.025 Urine Protein Negative Neg-Trace mg/dL Urine Ketones Negative Negative mg/dL Nitrite Urine Negative Negative Leukocyte Esterase Urine Negative Negative RBC Urine 6-10 0-2 /HPF WBC Urine 0-5 0-5 /HPF Squamous Epithelial Cell Urine 6-10 0-2 /HPF Bacteria Urine None Seen None Seen Hyaline Casts Urine 0-2 0-2 /LPF UA ClnCatch+Micro w/rflx Cul t Reviewed date:02/29/2024 12:34:58 PM Interpretation: Performing Lab:[facility], [address] [place] [phone] Notes/Report: Urine, Clean Catch Color Urine Yellow Appearance Urine Clear PH 5.5 5.0-9.0 Glucose Urine UA Negative Negative mg/dL Urine Blood Negative Negative Specific [place] - Urine 1.025 1.005-1.025 Urine Protein Negative Neg-Trace mg/dL Urine Ketones Negative Negative mg/dL Nitrite Urine Negative Negative Leukocyte Esterase Urine Negative Negative RBC Urine 0-2 0-2 /HPF WBC Urine 0-5 0-5 /HPF Squamous Epithelial Cell Urine 0-2 0-2 /HPF Bacteria Urine None Seen None Seen Hyaline Casts Urine 0-2 0-2 /LPF Complete Blood Count Auto Di ff Reviewed date:09/04/2023 12:42:03 PM Interpretation: Performing Lab:[facility], [address] [place] [phone] Notes/Report: White Blood Count 7.0 4.8-10.8 X10*3/uL [...] 0.0-0.2 /100WBC Neutrophils Absolute Auto 4.5 2.0-8.3 x10*3/uL Imm Gran Abs Auto 0.03 0.00-0.03 X10*3/uL Lymphocytes Absolute Auto 1.8 1.2-4.9 X10*3/uL Monocytes Absolute Auto 0.5 0.1-1.2 X10*3/uL Eosinophils Absolute Auto 0.2 0.0-0.4 X10*3/uL Basophils Absolute Auto 0.0 0.0-0.2 X10*3/uL NRBC Abs Auto 0.000 0.0-0.012 X10*3/uL Comprehensive Met. Panel Reviewed date:09/04/2023 04:12:45 PM Interpretation: Performing Lab:[facility], [address] [place] [phone] Notes/Report: Sodium 140 135-145 mmol/L Potassium 4.3 3.3-5.1 mmol/L Chloride 107 96-108 mmol/L Carbon Dioxide 24 22-29 mmol/L Anion Gap 13 12-20 Blood Urea Nitrogen 9 9-16 mg/dL Creatinine 0.80 0.5-1.4 mg/dL Estimated Glomerular Filt Rate > 60 NOTE: For -Bangladeshi individuals, multiply the result by 1.210. Chronic [...] Protein Reviewed date:09/04/2023 12:38:08 PM Interpretation: Performing Lab:[facility], [address] [place] [phone] Notes/Report: C Reactive Protein 1.36 < or = 0.50 mg/dL Vitamin B12 and Folate Reviewed date:09/04/2023 12:34:21 PM Interpretation: Performing Lab:[facility], [address] [place] [phone] Notes/Report: Vitamin B12 438 200-900 pg/mL NORMAL 200-900 PG/ML INDETERMINATE 160-199 PG/ML DEFICIENT < 160 PG/ML Folate 9.7 > or = 4.0 ng/mL Reference Values: > or = 4.0 ng/mL < 4.0 ng/mL suggests folate deficiency Methotrexate, aminopterin and folinic acid (leucovorin) are chemotherapeutic agents whose molecular structures are similar to folate; therefore, the Frame Polisher folate assay cannot be used for patients using these drugs. Immunoglobulins,IgG IgA IgM Reviewed date:09/07/2023 08:51:54 PM Interpretation: Performing Lab:[facility], [address] [place] [phone] Notes/Report: IgG 8618 769-1747 mg/dL IgA 279 47-310 mg/dL IgM 195 50-300 mg/dL THIS TEST WAS PERFORMED AT: [facility] [address] [place] [phone] PRASHANT JENNINGS MD Transglutaminase Ab IgG Reviewed date:09/07/2023 08:51:46 PM Interpretation: Performing Lab:[facility], [address] [place] [phone] Notes/Report: Transglutaminase Ab IgG <1.0 Value Interpretation ----- <15.0 Antibody not detected > or = 15.0 Antibody detected THIS TEST WAS PERFORMED AT: [facility] [address] [place] [phone] PRASHANT JENNINGS MD US abdomen complete Reviewed date:09/06/2023 01:01:46 PM Interpretation: Performing Lab: Notes/Report: [address] [address] Ultrasound Report Signed Patient: Dee Cochran MR#: [id number] : 1980 Acct:[id number] Age/Sex: 42 / F ADM Date: 09/04/23 Loc: HO.US Attending Dr: Alvina Chan MD Ordering Physician: Alvina Chan MD Date of Service: 09/04/23 Procedure(s): US abdomen complete Accession Number(s): [id number] cc: Shiva Willingham MD; Alvina Chan MD [...] in OV> 09/06/23 1131 DD/ 0904 TD/TT: Event Specialist Product Demonstrator: [place] [id number] Ultrasound Report Signed Patient: Dee Cochran MR#: [id number] : 1980 Acct:[id number] Age/Sex: 42 / F ADM Date: 09/04/23 Loc: HO.US Attending Dr: Alvina Chan MD Ordering Physician: Alvina Chan MD Date of Service: 09/04/23 Procedure(s): US abdomen complete Accession Number(s): [id number] cc: Shiva Willingham MD; Alvina Chan MD EXAMINATION: US ABDOMEN COMPLETE CLINICAL INFORMATION: Right upper quadrant pain. COMPARISON: CT abdomen and pelvi s 11/07/2022. Ultrasound kidneys and bladder 07/14/2022. TECHNIQUE: Real-time imaging of the abdominal viscera. FINDINGS: PANCREAS: The head a nd body appear normal. The tail is obscured by bowel gas. ABDOMINAL AORTA: The proximal, mid, and distal segments are normal in caliber. INFERIOR VENA CAVA: Visualized portions are normal. LIVER: The liver is normal in size. The liver contour is normal. There is diffuse increased liver parenchymal echogenicity, consistent with hepatic steatosis. N o focal hepatic lesion. There is no intrahepatic biliary duct dilatat ion seen. GALLBLADDER: Normal. The gallbladder is physiologically distended without evidence of stones, sludge, polyps, wall thickening or pericholecystic fluid. COMMON BILE DUCT: Normal in caliber measuring 0.4 cm in diameter. RIGHT KIDNEY: Normal . No hydronephrosis. No renal calculi or focal parenchymal lesions. The kidney measures 12.1 cm in maximum dimension. LEFT KIDNEY: Punctat e nonobstructing calculi in the lower pole. No hydronephrosis. No renal calculi or focal parenchymal lesions. The kidney measures 11.5 cm in maximum dimension. SPLEEN: Normal. The spleen measures 11.6 cm in maximum dimension. FREE FLUID: None. US/US abdomen complete IMPRESSION: Hepatic steatosis. Punctate nonobstruct ing calculi in the lower pole of the left kidney. No hydronephrosis. Dictated By: Samuel Vega MD Signed By: <Electronically signed by Samuel Vega MD in OV> 09/06/23 1131 DD/ 0904 TD/TT: Event Specialist Product Demonstrator: KYLIE Avalos Test Reviewed date:03/27/2024 12:49:52 PM Interpretation: Performing Lab:[facility], [address] [place] [phone] Notes/Report: Urine NEGATIVE NEGATIVE This test was developed to detect early . False negative results may occur after the 5th - 7th week of when using this test method. If clinically indicated, consider a serum hCG. Pathology Reviewed date:03/31/2024 12:58:34 PM Interpretation: Performing Lab:[facility], [address] [place] [phone] Notes/Report: --- Name: Dee Cochran Age/Sex: 43/F : 1980 Unit#: [id number] Attend Dr: Alvina Chan MD Re03/27/24 Status : [facility] Location: [facility] Disch: --- SPEC : [id number] RECD : 03/27/24-1336 STATUS: MALISSA ROD NUM: [id number] DIMA: 03/27/24-[address] [facility] [address]: Alvina Chan MD ENTERED: 03/27/24-13 47 SP TYPE: Surgical OTHR DR: Shiva Willingham MD ORDERED: HE Stain/ , Gross Micro L4/7, IHC, Special st. 2/3, H. pylori, AB/PAS/3 Diagnosis A. Duodenum, biopsy: Small intestinal mucosa within normal limits. B. Stomach, biopsy: Antral-type and oxyntic mucosa with mild chronic inactive inflammation; no Helicobacter organisms seen. C. EG junction, biopsy: - Cardiofundic-type mucosa with mild chronic inactive inflammation; no intestinal metaplasia seen. - Squamous mucosa within normal limits. D. Esophagus, distal , biopsy: Squamous epithelium within normal limits; no inflammation seen. E. Terminal ileum, biopsy: Small intestinal mucosa within normal limits. F. Colon, right, biopsy: Colonic mucosa within normal limits. G. Colon, left, biop sy: Colonic mucosa within normal limits. Clinical History Pre-Op Dx: Right upp er quadrant pain, abnormal bowel habits Post-Op Dx: Mild gastritis, internal hemorrhoids Microscopic Description A-G. Microscopic sections examined. No metaplastic changes are seen, supported by AB/PAS stains (A, B or C); no Helicobacter organisms are seen, supported by H. pylori immunostain (B). Material Received A. Duodenum B. Stomach biopsy C. EG junction D. Distal esophagus E. Terminal ileum F. Right sided colon biopsies G. Left sided colon biopsies CONTINUED ON NEXT PAGE --- Name: Dee Cochran Age/Sex: 43/F : 1980 Unit#: [id number] Attend Dr: Alvina Chan MD Re03/27/24 Status : [facility] Location: [facility] Disch: --- SPEC : [id number] RECD : 03/27/24 STATUS: MICHAELGurwinder ROD NUM: [id number] DIMA: 03/27/24-[address] [facility] [address]: Alvina Chan MD ENTERED: 03/27/24-13 47 SP TYPE: Surgical OTHR DR: Shiva Willingham MD ORDERED: HE Stain/ , Gross Micro L4/7, IHC, Special st. 2/3, H. pylori, AB/PAS/3 Gross Description Received in seven parts. Part A: Received in formalin labeled ?duodenum? are 3 viera irregular and rectangular tissue fragments ranging fr om 0.2-0.35 cm, submitted in toto in a cassette labeled A. Part B: Received in formalin labeled ?stomach biopsies? are 2 viera rectangular tissue fragments measuring 0.25 and 0.35 cm, submitted in toto in a cassette labeled B. Part C: Received in formalin labeled ?EG junction? are 2 pale, blake-white and blake-pink irregular tissue fragments measuring less than 0.1 and 0.2 cm, submitted in toto in a cassette labeled C. Part D: Received in formalin labeled ?distal esophagus? are 2 blake-white rectangular tissue fragments each measuring 0.3 cm, submitted in toto in a cassette labeled D. Part E: Received in formalin labeled ?terminal ileum? are 2 viera irregular tissue fragments each measuring 0.3 c m, submitted in toto in a cassette labeled E. Part F: Received in formalin labeled ?right sided colon biopsy? are 4 viera irregular tissue fragments ranging fr om minute to 0.2 cm, submitted in toto in a cassette labeled F. Part G: Received in formalin labeled ?left sided colon biopsies? are 3 blake-viera irregular tissue fragments ranging from 0.1-0.3 cm, submitted in toto in a cassette labeled G. CEDS Special studies orde red and performed: Immunostain for H. pylori on B; AB/PAS stains on A, B and C Copies To: Shiva Willingham MD [facility] [address] [address] Alvina Chan MD [facility] [address] [place] [address] CONTINUED ON NEXT PAGE --- Name: Dee Cochran Age/Sex: 43/F : 1980 Unit#: [id number] Attend Dr: Alvina Chan MD Re03/27/24 Status : [facility] Location: [facility] Disch: --- SPEC : [id number] RECD : 03/27/24371 STATUS: MALISSA ROD NUM: [id number] DIMA: 03/27/24-[address] [facility] [address]: Alvina Chan MD ENTERED: 03/27/24-13 47 SP TYPE: Surgical OTHR DR: Shiva Willingham MD ORDERED: HE / , Gross Micro L4/7, IHC, Special st. 2/3, H. pylori, AB/PAS/3 --- Signed (signature on file) Floyd Cueva MD 03/31/24 1145 --- END OF REPORT Reason For Referral Reason chronic diarrhea Diagnosis 1 Chronic diarrhea (K5 2.9) Referral Organization Shiva Willingham MD Referring Provider First Name Shiva Referring Provider Last Name Maulik Referring Provider Speciality Internal M edicine Referred Provider Alvina Chan Referred Provider Specialty Gastroentero logy General Notes Lauren Pinzon 09:45:43 AM EST > info faxed , Lauren Pinzon 06/29/2023 08:20:53 AM EST > info mailed to patient Referral Priority Routine Referral Appointment Date 08/27/2023 Medications Medication SIG (Take, Route, Frequency, Duration) [...] times a day for 30 day(s) Not-Taking Immunizations Vaccine Route Administration Date Status Comme nts Fluarix Quadrivalent Unknown 03/07/2020 Administered CV S Covid Vaccine Unknown 08/02/2020 Administered Pfizer Covid Vaccine Unknown 08/23/2020 Administered Pfizer Fluarix Quadrivalent Unknown 02/08/2021 Refused Fluarix Quadrivalent Unknown 02/14/2022 Refused Fluarix Quadrivalent Unknown 02/08/2023 Refused Social History Tobacco Use: Social History Observation [...] ast year? No Points 0 Interpretation Negative Problems Problem Type SNOMED Code ICD Code Onset Dates Problem Status W/U Status Risk Notes Problem 495560640 Irritable bowel syndrome with diarrhea (K58.0) Active confirmed Problem Acquired diverticulum of esophagus (67505719) Diverticulum of esophagus, acquired (K22.5) Active confirmed Problem 91944714 Kidney stone (N20.0) Active confirmed Problem 798225423 Acquired hypothyroidism (E03.9) Active confirmed Problem 24846107 Bilateral carpal tunnel syndrome (G56.03) Active confirmed Problem 31921976 Muscle twitching (R25.3) Active confirmed Problem 091382582 Obesity, morbid, BMI 50 or higher (E66.01) Active confirmed Problem 605827082 Thoracic outlet syndrome (G54.0) Active confirmed Vital Signs Blood pressure diastolic 74 mm Hg 03/25/2024 garcía ght is up 3 pounds since 06-28-23 Height 56.5 in 03/25/2024 weight is up 3 pounds since 06-28-23 Blood pressure systolic 122 mm Hg 03/25/2024 garcíag ht is up 3 pounds since 06-28-23 Weight 268 lbs 03/25/2024 weight is up 3 pounds since 06-28-23 BMI 59.02 kg/m2 03/25/2024 weight is up 3 pounds since 06-28-23 Procedures Procedure Date Ordered Date Performed Result Body Sit e Colonoscopy, Screening 03/27/2024 03/27/2024 repeat 10y Encounters Encounter Location Date Provider Diagnosis Shiva Willingham MD [address] [place] [address] Drive [address] [place] [phone] 02/28/2024 Shiva Willingham Blood tests for routine general physical examination Z00.00 and Acquired hypothyroidism E03.9 Shiva Willingham MD [address] [place] [id number] 02/29/2024 Shiva Willingham Hematuria R31.9 Shiva Willingham MD [address] [place] [phone] 06/28/2023 Shiva Willingham Chronic diarrhea K52 .9 Shiva Willingham MD [address] [place] [address] [phone] 03/25/2024 Shiva Willingham Acquired hypothyroidism E03.9 ; Annual physical exam Z00.00 ; Irritable bowel syndrome with diarrhea K58.0 and Depression screening Z13.31 Shiva Willingham MD [address] [place] [phone] 02/28/2024 Shiva Willingham Assessments Encounter Date Diagnosis (ICD Code) Assessment Notes Treatment Notes Treatment Clinical Notes Section Notes 02/28/2024 Blood tests for routine general physical examination (ICD-10 - Z00.00) 02/28/2024 Acquired hypothyroidism (ICD-10 - E03.9) 06/28/2023 Chronic diarrhea (ICD-10 - K52.9) referral to [facility] 03/25/2024 Acquired hypothyroidism (ICD-10 - E03.9) doing well with good tsh, will continue current regiment 03/25/2024 Annual physical exam (ICD-10 - Z00.00) labs reviewed and discussed with patient 02/29/2024 Hematuria (ICD-10 - R31.9) 03/25/2024 Irritable bowel syndrome with diarrhea (ICD-10 - K58.0) has still diarrhea. is going to have colonoscopy, 03/25/2024 Depression screening (ICD-10 - Z13.31) negative screen Plan Of Treatment Pending Test Test Name Order Date URINE CULTURE 10/08/2020 XR GI SERIES 01/06/2021 CTA CHEST FOR PE 02/24/2022 US pelvic complete 12/11/2022 US pelvic and transvaginal 12/14/2022 Next Appt Details Provider Name:Shiva An ier, 09/18/2024 10:00:00 AM, [address] [place] [address], [address], [phone], Provider Name:Shiva An ier, 03/13/2025 07:15:00 AM, [address] [place] [address], [place] [address], [place], [place], [phone], Provider Name:Shiva An ier, 03/27/2025 11:00:00 AM, [address] [place] [address], [address], [phone], Insurance Providers Payer Name Payer Address Payer Phone Subscriber Number Group Number Insured Name Patient Relationship to Insured Coverage Start Date Coverage End Date [employer] [address] [place], [place] [id number] Dee Cochran Self - patient is the insured Medical (General) History Medical History History ICD Code MUST BE ON 50 MCG PILLS TO Jass JIN UP HER DOSAGE IT DOES NOT HAVE FILLERS IN IT. ALL OTHERS DO colonoscopy 03/27/24 repeat 10y
--- OUTSIDE RECORDS SUMMARY | 2024-06-23 12:48 | XMS_ITS ---
Author Organization Shiva Willingham MD Address [address] [place], [place] [phone] Care Team Providers Care Integrity Analyst Name Role Phone Shiva Willingham Primary Care Provider Results Component Value Reference Range Notes UA ClnCatch+Micro w/rflx Cul t Reviewed date:02/29/2024 12:34:58 PM Interpretation: Performing Lab:[facility], [address] [place] [phone] Notes/Report: Urine, Clean Catch Color Urine Yellow Appearance Urine Clear PH 5.5 5.0-9.0 Glucose Urine UA Negative Negative mg/dL Urine Blood Negative Negative Specific [place] - Urine 1.025 1.005-1.025 Urine Protein Negative [...] Location Date Provider Diagnosis Shiva Willingham MD [address] [place] [address] [place] [phone] 02/29/2024 Shiva Willingham Hematuria R31.9 Assessments Encounter Date Diagnosis (ICD Code) Assessment Notes Treatment Notes Treatment Clinical Notes Section Notes 02/29/2024 Hematuria (ICD-10 - R31.9) Plan Of Treatment Next Appt Details Provider Name:Shiva freedman, 09/18/2024 10:00:00 AM, [address], [address], [place], [phone], Provider Name:Shiva An ier, 03/13/2025 07:15:00 AM, [address], [address], [place], [phone], Provider Name:Shiva An ier, 03/27/2025 11:00:00 AM, [address] [facility], [address], [place], [phone], Progress Notes * Dee COCHRANDOB:1980 ( 43 yo F)Acc No.[id number]:02/29/2024 Progress Note Patient:Dee ZAVALA Provider:?Shiva Willingham MD :1980???Age:43 Y???Sex:Female D ate:02/29/2024 Address:[address] [place], [place] [address]Micaela [employer], [id number] Subjective: * Chief Complaints: * ???1. U/A. * Medical History:? Objective: * Vitals:? Assessment: * Assessment: 1.?Hematuria - R31.9??? Plan: * Treatment: * * The named appointment provid er may or may not be the originator of this progress note, and it is not deemed complete until electronically signed by the appointment provider. Sign off status: Pending * Provider:?Shiva Willingham MD Date:?1 04/30/2023 Generated for Erwin christianson/Hung/eTransmitting on:?06/23/2024 12:48 PM EST
--- OUTSIDE RECORDS SUMMARY | 2024-06-23 12:48 | XMS_ITS ---
Author Organization Shiva Willingham MD Address [address] [place] [phone] Care Team Providers Care Parachute Marker Name Role Phone Shiva Willingham Primary Care Provider Medications Medication SIG (Take, Route, Frequency, Duration) Notes Start Date End Date Status Levothyroxine Sodium 50 MCG TAKE 2 TABLE TS BY MOUTH ONCE A DAY BUT TUESDAYS TAKE 1 TABLET for 97 Active Encounters Encounter Location Date Provider Diagnosis Shiva Willingham MD 10 [facility] [address] [place] [phone] 02/28/2024 Shiva Willingham Plan Of Treatment Medication Medication Name Sig Start Date Stop Date Notes Levothyroxine Sodium 50 MCG TAKE 2 TABLE TS BY MOUTH ONCE A DAY BUT TUESDAYS TAKE 1 TABLET for 97 Next Appt Details Provider Name:Shiva freedman, 09/18/2024 10:00:00 AM, [address] [place] [address], [address], [phone], Provider Name:Shiva freedman, 03/13/2025 07:15:00 AM, [address] [place] [address], [address], [phone], Provider Name:Shiva freedman, 03/27/2025 11:00:00 AM, [address] [place] [address], [address], [phone], Progress Notes * Dee COCHRANDOB:1980 ( 43 yo F)Acc No.[id number]:02/28/2024 Patient:?Dee Cochran :1980???Age:43 Y???Sex:Female Address:[address] [place] [address] [place], [address] * Refills? Refill Levothyroxine Sodium Tablet, 50 MCG, 180 Tablet, TAKE 2 TABLETS BY MOUTH ONCE A DAY BUT TUESDAYS TAKE 1 TABLET, 97, Refills=3 * true * Date:? Generated for Erwin christianson/Hung/eTransmitting on:?06/23/2024 12:47 PM EST
== END ==
LOC: HO.NUCMED 10:50
PROVIDERS: PCP Internal Medicine; Visit Provider Internal Medicine Gastroenterology
DX: R10.11 Right upper quadrant pain (principal)
CPT/HCPCS: 78227; A9537; J2805

== ENCOUNTER → 2024-06-23 10:52 | Outpatient (BNV) | payer BC, SELFPAY | PROVIDERS: PCP Internal Medicine; Visit Provider Radiology Diagnostic Radiology | DX: R10.11 Right upper quadrant pain (principal) | CPT/HCPCS: 78227 ==

== ENCOUNTER 2024-09-18 12:15 | Outpatient (REF) | payer BC, SELFPAY ==
--- OUTSIDE RECORDS SUMMARY | 2024-09-18 12:17 | XMS_ITS | Patient Health Record ---
Author Organization [facility] Address [address] [place] [address] Care Team Providers Care Sex Crimes Detective Name Role Phone Maulik LYNN, Shiva Primary Care Provider Derek Alejandro Jr Unavailable Allergies No Known Allergies Reason For Referral No Information Medications Medication SIG (Take, Route, Frequency, Duration) [...] Once a day for 30 day(s) Active Immunizations Vaccine Route Administration Date Status Comme nts Influenza Unknown 01/17/2021 Administered Social History Tobacco Use: Social History Observation [...] Problem Status W/U Status Risk Notes Problem [id number] Gastroesophageal reflux disease without esophagitis (K21.9) Active confirmed Problem Gastritis (7292762) Gastritis (K29.70) Active confirmed Problem 828320724 H. pylori infect ion (A04.8) Active confirmed Plan Of Treatment Pending Test Test Name Order Date H pylori Ag Stool 06/15/2021 Future Test Test Name Order Date UPPER GI ENDOSCOPY 01/17/2021 Insurance Providers Payer Name Payer Address Payer Phone Subscriber Number Group Number Insured Name Patient Relationship to Insured Coverage Start Date Coverage End Date [facility] [employer] CLAIM[employer] [address] [place] [address] [id number] EMMA GARRISON Self - patient is the insured Medical (General) History Medical History History ICD Code Galen's thyroiditis, hypothyroid Palpitations Surgical History Surgery Date(Month/Year) ovarian cyst removed in late . Hospitalization History Reason Date(Month/Year) hospitalization due to thyroid april 242020
[2024-09-18 13:00] LABS: TSH reflex Free T4 1.72 uIU/mL (0.32-4.0)
== END 2024-09-18 12:16 | disposition home or self-care (01) ==
LOC: HO.LNP 12:15
PROVIDERS: Visit Provider Internal Medicine
DX: E03.9 Hypothyroidism, unspecified (principal)
CPT/HCPCS: 84443

== ENCOUNTER 2025-03-13 10:37 | Outpatient (REF) | payer BC, SELFPAY ==
--- OUTSIDE RECORDS SUMMARY | 2024-02-29 04:15 | XMS_ITS ---
Author Organization Shiva Willingham MD Address [address] [place], [place] [id number] Care Team Providers Care Data Warehouse Developer Name Role Phone Shiva Willingham Primary Care Provider Results Component Value Reference Range Notes UA ClnCatch+Micro w/rflx Cul t Reviewed date:02/29/2024 12:34:58 PM Interpretation: Performing Lab:[facility], [address] [place] [id number] Notes/Report: Urine, Clean Catch Color Urine Yellow Appearance Urine Clear PH 5.5 5.0-9.0 Glucose Urine UA Negative Negative mg/dL Urine Blood Negative Negative Specific [place] - Urine 1.025 1.005-1.025 Urine Protein Negative Neg-Trace mg/dL Urine Ketones Negative Negative mg/dL Nitrite Urine Negative Negative Leukocyte Esterase Urine Negative Negative RBC Urine 0-2 0-2 /HPF WBC Urine 0-5 0-5 /HPF Squamous Epithelial Cell Urine 0-2 0-2 /HPF Bacteria Urine None Seen None Seen Hyaline Casts Urine 0-2 0-2 /LPF REASON FOR VISIT U/A Encounters Encounter Location Date Provider Diagnosis Shiva Willingham MD [address] [facility] [address] [place] [phone] 02/29/2024 Shiva Willingham Hematuria R31.9 Assessments Encounter Date Diagnosis (ICD Code) Assessment Notes Treatment Notes Treatment Clinical Notes Section Notes 02/29/2024 Hematuria (ICD-10 - R31.9) Plan Of Treatment Next Appt Details Provider Name:Shiva freedman, 03/27/2025 11:00:00 AM, [address] [place] [address], [address], [place], [place], [phone], Progress Notes * Dee COCHRANDOB:1980 ( 44 yo F)Acc No.[id number]:02/29/2024 Progress Note Patient: Dee JONES Provider: Natan Willingham MD :1980 A ge:43 Y S ex:Female Date:02/29/2024 Address:[address] [place], [place] [id number] Subjective: * Chief Complaints: * 1 . U/A. * Medical History: Objective: * Vitals: Assessment: * Assessment: 1. H ematuria - R31.9 Plan: * Treatment: * * The named appointment provid er may or may not be the originator of this progress note, and it is not deemed complete until electronically signed by the appointment provider. Sign off status: Pending * Provider: Natan Willingham MD Date: 04/30/2023 Generated for Erwin christianson/Hung/Logansmitting on: 05/13/2024 11:21 AM EST
--- OUTSIDE RECORDS SUMMARY | 2024-03-25 06:00 | XMS_ITS ---
Author Organization Shiva Willingham MD Address [address] [place], [place] [id number] Care Team Providers Care Clay Miller Name Role Phone Shiva Willingham Primary Care Provider Allergies No Known Allergies REASON FOR VISIT annual visit Medications Medication SIG (Take, Route, Frequency, Duration) Notes Start Date End Date Status Cyclobenzaprine HCl 5 MG 1 tablet at bed time as needed Orally twice a day for 10 days 04/30/2020 Not-Taking Levothyroxine Sodium 50 MCG TAKE 2 TABLE TS BY MOUTH ONCE A DAY BUT TUESDAYS TAKE 1 TABLET Active Aleve 220 MG 1 tablet with food o r milk as needed Orally every 12 hrs Not-Taking Tylenol 325 MG 1 tablet as needed Orally every 4 hrs Not-Taking Pepto-Bismol 262 MG 2 tablets with meals and at bedtime Orally Four times a day for 30 day(s) Not-Taking Social History Tobacco Use: Social History Observation Description Date Details (start date - stop date) Never Smoker NA - NA Tobacco Use/Smoking Question Answer Notes Patient is a nonsmoker Additional Findings: Tobacco Non-User Cu rrent non-smoker, currently using no form of tobacco Alcohol Screen Question Answer Notes Did you have a drink containing alcohol in the p ast year? No Points 0 Interpretation Negative Vital Signs Blood pressure systolic 122 mm Hg 03/25/20 24 Blood pressure diastolic 74 mm Hg 024 Height 56.5 in 03/25/2024 Weight 268 lbs 03/25/2024 BMI 59.02 kg/m2 03/25/2024 weight is up 3 pounds since 06-28-23 Encounters Encounter Location Date Provider Diagnosis Shiva Willingham MD [address] [place] [address] Drive [address] [place], [place] [id number] 03/25/2024 Shiva Willingham Acquired hypothyroidism E03.9 ; Annual physical exam Z00.00 ; Irritable bowel syndrome with diarrhea K58.0 and Depression screening Z13.31 Assessments Encounter Date Diagnosis (ICD Code) Assessment Notes Treatment Notes Treatment Clinical Notes Section Notes 03/25/2024 Acquired hypothyroidism (ICD-10 - E03.9) doing well with good tsh, will continue current regiment 03/25/2024 Annual physical exam (ICD-10 - Z00.00) labs reviewed and discussed with patient 03/25/2024 Irritable bowel syndrome with diarrhea (ICD-10 - K58.0) has still diarrhea. is going to have colonoscopy, 03/25/2024 Depression screening (ICD-10 - Z13.31) negative screen Plan Of Treatment Medication Medication Name Sig Start Date Stop Date Notes Levothyroxine Sodium 50 MCG TAKE 2 TABLE TS BY MOUTH ONCE A DAY BUT TUESDAYS TAKE 1 TABLET Treatment Notes Assessment Notes Acquired hypothyroidism doing well with good tsh, will continue current regiment Annual physical exam labs reviewed and d iscussed with patient Irritable bowel syndrome with diarrhea h as still diarrhea. is going to have colonoscopy, Depression screening negative screen Next Appt Details Follow Up: 6 Months, Reason: Provider Name:Shiva An ier, 03/27/2025 11:00:00 AM, [address] [place] [address] Drive, [address], [place], [place], [id number], Progress Notes * Dee COCHRANDOB:1980 ( 43 yo F)Acc No.[id number]:03/25/2024 Progress Notes Patient: Dee Puga Provider: Natan Willingham MD :1980 A ge:43 Y S ex:Female Date:03/25/2024 Address:[address] [place] [address] JODI ARMSTRONG [id number] Subjective: * Chief Complaints: * A nnual visit * HPI: D epression Screening: PHQ-9 L ittle interest or pleasure in doing things N ot at all, F eeling down, depressed, or hopeless N ot at all, T rouble falling or staying asleep, or sleeping too much N ot at all, F eeling tired or having little energy N ot at all, P oor appetite or overeating N ot at all, F eeling bad about yourself or that you are a failure, or have let yourself or your family down N ot at all, T rouble concentrating on things, such as reading the newspaper or watching television N ot at all, M oving or speaking so slowly that other people could have noticed; or the opposite, being so fidgety or restless that you have been moving around a lot more than usual N ot at all, T houghts that you would be better off or of hurting yourself in some way N ot at all, T otal Score 0 . I nterpretation and Intervention D epression Screening Findings N egative, F ollow-Up for Depression : review of PHQ-9 found negative result, no follow-up needed. C ommunication Needs: Communication Needs D oes the patient have a hearing impairment N o, D oes the patient have a vision impairment? N o, D oes the patient have a cognition impairment? N o. S ITALIA Questions: SDOH Questions I n the past year have you been worried about losing housing? N o, I n the past year have you or any family members you live with been unable to get any of the following when it was really needed? Check all that apply: N one. S ymptom(s): patient is a 43 yo female here for annual visit with review of recent labs and follow up of chronic issues. here for yearly evaluation. still with loose stools. getting another colonoscopy this week. * ROS: G eneral/Constitutional: Patient denies f atigue , headache. C hange in appetite?denies. C hills d enies. F ever d enies. O phthalmologic: Blurred vision d enies. D ischarge d enies. P ain d enies. E NT: Patient denies d ecreased sense of smell , any loss of taste , sore throat. D ecreased hearing d enies. S ore throat d enies. S wollen glands d enies. E ndocrine: Cold intolerance d enies. E xcessive thirst d enies. H eat intolerance d enies. W eight loss d enies. R espiratory: Cough d enies. S hortness of breath at rest d enies. S hortness of breath with exertion d enies. W heezing d enies. C ardiovascular: Chest pain at rest d enies. C hest pain with exertion?denies. I rregular heartbeat d enies. S hortness of breath d enies. ? G astrointestinal: Abdominal pain d enies. C hange in bowel habits d enies. D iarrhea d enies. N ausea d enies. R ectal bleeding d enies. V omiting d enies . G enitourinary: Blood in urine d enies. D ifficulty urinating d enies. F requent urination d enies. U rinary incontinence D enies. M usculoskeletal: Patient denies m uscle aches. P ainful joints d enies. W eakness d enies. P eripheral Vascular: Patient denies r ed and blue toes. S kin: Dry skin d enies. I tching d enies. D enies?Mole(s), changes in moles, new moles or any lesions of concern. D enies P hotosensitivity. R catherine d enies. N eurologic: Dizziness d enies. F ainting d enies. H eadache?denies. * Medical History: * Surgical History: * Hospitalization/Major Diagno stic Procedure: * Family History: F ather: 40 yrs. M other: alive 70 yrs, diagnosed with Hypertension. 2 brother(s) . . fATHER- mi MOTHER HEALTHY, Denies mental health/substance abuse family history, Denies mental health/substance abuse family history, No pertinent family medical history. * Social History: T obacco Use: T obacco Use/Smoking P atient is a n onsmoker, A dditional Findings: Tobacco Non-User C urrent non-smoker, currently using no form of tobacco. D rugs/Alcohol: A lcohol Screen D id you have a drink containing alcohol in the past year? N o, P oints 0 , I nterpretation N egative. M iscellaneous: C affeine: yes, frequency:, 1-2 cups per day. no Children. Community involvements: yes. Exercise: yes, body weights every day. Home smoke detector use: yes. Housing: renting. Living with: friends. Occupation: weeks/months/years, works full-time. Pets: cats: dogs: 1 dog. no Travel outside of the [place]. * Medications: T akingLevothyroxine Sodium 50 MCG Tablet TAKE 2 TABLETS BY MOUTH ONCE A DAY BUT TUESDAYS TAKE 1 TABLET Taking Levothyroxine Sodium 50 MCG Tablet TAKE 2 TABLETS BY MOUTH ONCE A DAY BUT TUESDAYS TAKE 1 TABLET Not-Taking/PRNPepto-Bismol 262 MG Tablet Chewable 2 tablets with meals and at bedtime Orally Four times a dayTylenol 325 MG Tablet 1 tablet as needed Orally every 4 hrsAleve 220 MG Tablet 1 tablet with food or milk as needed Orally every 12 hrsCyclobenzaprine HCl 5 MG Tablet 1 tablet at bedtime as needed Orally twice a dayMedication List reviewed and reconciled with the patientNot-Taking/PRN Pepto-Bismol 262 MG Tablet Chewable 2 tablets with meals and at bedtime Orally Four times a dayNot-Taking/PRN Tylenol 325 MG Tablet 1 tablet as needed Orally every 4 hrsNot-Taking/PRN Aleve 220 MG Tablet 1 tablet with food or milk as needed Orally every 12 hrsNot-Taking/PRN Cyclobenzaprine HCl 5 MG Tablet 1 tablet at bedtime as needed Orally twice a dayMedication List reviewed and reconciled with the patient * Allergies: N .K.D.A.yes[Allergies Verified] Objective: * Vitals: H t: 56.5, Wt:268, BMI:59.02, BP:122/74 weight is up 3 pounds since 06-28-23. * P ast Orders: L ab:Lipid Panel (Order Date - 02/28/2024) (Collection Date - 02/28/2024) Value Reference Range Triglycerides 221 H <150 - mg/dL Cholesterol 181 <200 - mg/dL LDL Cholesterol Calculated 92 <100 - mg/dL HDL Cholesterol 45 >40 - mg/dL L ab:TSH reflex Free T4 (Order Date - 02/28/2024) (Collection Date - 02/28/2024) Value Reference Range TSH reflex Free T4 2.19 0.32-4.0 - uIU/mL Lab:UA ClnCatch+Micro w/rflx Cult * Order Date 02/29/2024 02/28/2024 Color Urine Yellow Yellow Appearance Urine Clear Clear PH 5.5 (Ref Range: 5.0-9.0) 6.0 (Ref Range: 5.0-9.0) Glucose Urine UA Negative (Ref Range: Negative mg/dL) Negative (Ref Range: Negative mg/dL) Urine Blood Negative (Ref Range: Negative) Trace A (Ref Range: Negative) Specific [place]itz - Urine 1.025 (Ref Range: 1.005-1.025) 1.020 (Ref Range: 1.005-1.025) Urine Protein Negative (Ref Range: Neg-Trace mg/dL) Negative (Ref Range: Neg-Trace mg/dL) Urine Ketones Negative (Ref Range: Negative mg/dL) Negative (Ref Range: Negative mg/dL) Nitrite Urine Negative (Ref Range: Negative) Negative (Ref Range: Negative) Leukocyte Esterase Urine Negative (Ref Range: Negative) Negative (Ref Range: Negative) RBC Urine 0-2 (Ref Range: 0-2 /HPF) 6-10 A (Ref Range: 0-2 /HPF) WBC Urine 0-5 (Ref Range: 0-5 /HPF) 0-5 (Ref Range: 0-5 /HPF) Squamous Epithelial Cell Urine 0-2 (Ref Range: 0-2 /HPF) 6-10 (Ref Range: 0-2 /HPF) Bacteria Urine None Seen (Ref Range: None Seen) None Seen (Ref Range: None Seen) Hyaline Casts Urine 0-2 (Ref Range: 0-2 /LPF) 0-2 (Ref Range: 0-2 /LPF) ???Lab:Complete Blood Count Auto Diff (Order Date - 02/28/2024) (Collection Date - 02/28/2024)?ValueReference Range?White Blood Count7.64.8-10.8 - X10*3/uL?Red Blood Count4.214.20-5.50 - X10*6/uL?Moydewrbil08.4 12.0-16.0 - g/dl?Vxpxfjtunc70.937.0-47.0 - %?Mean Corpuscular Jjdaat03.080.0-98.0 - fL?Mean Corpuscular Qqgjpukavp03.527.0-33.0 - pg ?Mean Corpuscular HGB Conc32.731.0-35.0 - g/dl?Red Cell Distribution Width13.711.0-16.0 - %?Platelet Mdumh765748-888 - X10*3/uL ?Mean Platelet Volume9.99.4-12.3 - fL?Neutrophils Percent Auto58.9 45-73 - %?Imm Gran Pct Auto0.30.0-0.4 - %?Lymphocytes Percent Auto 30.620-40 - %?Monocytes Percent Auto6.72-11 - %?Eosinophils Percent Auto3.40-4 - %?Basophils Percent Auto0.10-2 - %?NRBC Pct Auto0.00.0-0.2 - /100WBC?Neutrophils Absolute Auto4.52.0-8.3 - x10*3/uL ?Imm Gran Abs Auto0.020.00-0.03 - X10*3/uL?Lymphocytes Absolute Auto2.31.2-4.9 - X10*3/uL?Monocytes Absolute Auto0.50.1-1.2 - X10*3/uL ?Eosinophils Absolute Auto0.30.0-0.4 - X10*3/uL?Basophils Absolute Auto0.00.0-0.2 - X10*3/uL?NRBC Abs Auto0.0000.0-0.012 - X10*3/uL ???Lab:Comprehensive [place]. Panel Fast (Order Date - 02/28/2024) (Collection Date - 02/28/2024)?ValueReference Range?Uthdji868625-308 - mmol/L ?Bilirubin Total0.20.0-1.0 - mg/dL?Aspartate Amino Czjvjlyrniv777- 31 - U/L?Alanine Uvwzbvbrbwsjqyyz121-53 - U/L?Total Protein7.06.5- 8.0 - g/dL?Albumin Level3.83.5-5.0 - g/dL?Alkaline Nsnnhhclwma61 39-117 - U/L?Potassium4.13.3-5.1 - mmol/L?Kzkzjtvq01349-613 - mmol/L?Carbon Leijeuy4862-79 - mmol/L?Anion Dkr9420-92 - ?Blood Urea Zipgnuhm374-52 - mg/dL?Creatinine0.710.5-1.4 - mg/dL ?Estimated Glomerular Filt Rate> 60-?Glucose Nutegnn3571-34 - mg/dL?Calcium9.08.4-10.2 - mg/dL * Examination: G eneral Examination: GENERAL APPEARANCE: w ell developed, well nourished, in no acute distress. HEAD: n ormocephalic, atraumatic. EYES: p upils equal, round, reactive to light and accommodation, sclera non-icteric. EARS: n ormal. ORAL CAVITY: m ucosa moist. THROAT: c lear. NECK/THYROID: n aliya supple, full range of motion, no cervical lymphadenopathy, no bruits. SKIN: w arm and dry, no suspicious lesions. HEART: r egular rate and rhythm, S1, S2 normal, no murmurs.? LUNGS: c lear to auscultation bilaterally. BREASTS: d one by job placement specialist. ABDOMEN: s oft, nontender, nondistended, bowel sounds present, normal, no organomegaly , no masses palpable. RECTAL EXAM: d one by job placement specialist. FEMALE GENITOURINARY: d one by job placement specialist. EXTREMITIES: n o clubbing, cyanosis, or edema. NEUROLOGIC: n onfocal, motor strength normal upper and lower extremities, sensory exam intact. Assessment: * Assessment: 1. A nnual physical exam - Z00.00 (Primary) 2 . A cquired hypothyroidism - E03.9 3 . I rritable bowel syndrome with diarrhea - K58.0 4 . D epression screening - Z13.31? Plan: * Treatment: 2. A cquired hypothyroidism Continue Levothyroxine Sodium Tablet, 50 MCG, TAKE 2 TABLETS BY MOUTH ONCE A DAY BUT TUESDAYS TAKE 1 TABLET. Notes: doing well with good tsh, will continue current regiment 3. I rritable bowel syndrome with diarrhea Notes: has still diarrhea. is going to have colonoscopy, 4. D epression screening Notes: negative screen * Procedure Codes: * Follow Up: 6 Months * * Sign off status: Completed true * Provider: Natan Willingham MD Date: 05/26/2023 Generated for Erwin christianson/Hung/Kathleenitting on: 05/13/2024 11:21 AM EST History and Physical Notes * HPI (History of Present Illness) Category Sub-Category Detail Notes Category Not es Symptom(s) patient is a 43 yo female here for annual visit with review of recent labs and follow up of chronic issues. here for yearly evaluation. still with loose stools. getting another colonoscopy this week Depression Screening PHQ-9 Little inte rest or pleasure in doing things: Not at all Feeling down, depressed, or hopeless: No t at all Trouble falling or staying asleep, or sl eeping too much: Not at all Feeling tired or having little energy: N ot at all Poor appetite or overeating: Not at all Feeling bad about yourself o r that you are a failure, or have let yourself or your family down: Not at all Trouble concentrating on thi ngs, such as reading the newspaper or watching television: Not at all Moving or speaking so slowly that other people could have noticed; or the opposite, being so fidgety or restless that you have been moving around a lot more than usual: Not at all Thoughts that you would be b ramsey off or of hurting yourself in some way: Not at all Total Score: 0 Interpretation and Intervention Depression Mic benitez Findings: Negative Follow-Up for Depression: : review of PH Q-9 found negative result, no follow-up needed SDOH Questions SDOH Questions In the past year have you been worried about losing housing?: No In the past year have you or any family members you live with been unable to get any of the following when it was really needed? Check all that apply:: None Communication Needs Communication Needs Does the patient have a hearing impairment: No Does the patient have a vision impairmen t?: No Does the patient have a cognition impair ment?: No Examination Category Sub-Category Detail Notes Category Not es General Examination GENERAL APPEARANCE: well dev eloped, well nourished, in no acute distress HEAD: normocephalic, atrau matic EYES: pupils equal, round, reactive to light and accommodation, sclera non-icteric EARS: normal THROAT: clear NECK/THYROID: neck supple, full ra nge of motion, no cervical lymphadenopathy, no bruits HEART: regular rate and rhy thm, S1, S2 normal, no murmurs LUNGS: clear to auscultatio n bilaterally ABDOMEN: soft, nontender, non distended, bowel sounds present, normal, no organomegaly , no masses palpable NEUROLOGIC: nonfocal, motor stre ngth normal upper and lower extremities, sensory exam intact SKIN: warm and dry, no jordy picious lesions EXTREMITIES: no clubbing, cyanosi s, or edema BREASTS: done by job placement specialist RECTAL EXAM: done by job placement specialist FEMALE GENITOURINARY: done by job placement specialist ORAL CAVITY: mucosa moist
--- OUTSIDE RECORDS SUMMARY | 2024-09-18 05:00 | XMS_ITS ---
Author Organization Shiva Willingham MD Address [address] [place], [place] [phone] Care Team Providers Care Vp Marketing Name Role Phone Shiva Willingham Primary Care Provider [phone] Allergies No Known Allergies Results Component Value Reference Range Notes TSH reflex Free T4 Reviewed date:09/18/2024 04:11:32 PM Interpretation: Performing Lab:[facility], [address] [place] [phone] Notes/Report: TSH reflex Free T4 1.72 0.32-4.0 uIU/mL REASON FOR VISIT 6 month Medications Medication SIG (Take, Route, Frequency, Duration) Notes Start Date End Date Status Aleve 220 MG 1 tablet with food o r milk as needed Orally every 12 hrs Not-Taking Cyclobenzaprine HCl 5 MG 1 tablet at bed time as needed Orally twice a day for 10 days 04/30/2020 Not-Taking Levothyroxine Sodium 50 MCG TAKE 2 TABLE TS BY MOUTH ONCE A DAY BUT TUESDAYS TAKE 1 TABLET Active Tylenol 325 MG 1 tablet as needed Orally every 4 hrs Not-Taking Pepto-Bismol 262 MG 2 tablets with meals and at bedtime Orally Four times a day for 30 day(s) Not-Taking Vital Signs Blood pressure systolic 120 mm Hg 09/19/19 25 Blood pressure diastolic 78 mm Hg 025 Height 56.5 in 09/18/2024 Weight 268 lbs 09/18/2024 BMI 59.02 kg/m2 09/18/2024 Encounters Encounter Location Date Provider Diagnosis Shiva Willingham MD [address] [place], [place] [phone] 09/18/2024 Shiva Willingham Acquired hypothyroidism E03.9 and Abdominal pain R10.9 Assessments Encounter Date Diagnosis (ICD Code) Assessment Notes Treatment Notes Treatment Clinical Notes Section Notes 09/18/2024 Acquired hypothyroidism (ICD-10 - E03.9) 09/18/2024 Abdominal pain (ICD-10 - R10.9) had a HIDA scan that showed a normally functioning gall bladder. has other evaluations all normal will observe Plan Of Treatment Medication Medication Name Sig Start Date Stop Date Notes Levothyroxine Sodium 50 MCG TAKE 2 TABLE TS BY MOUTH ONCE A DAY BUT TUESDAYS TAKE 1 TABLET Treatment Notes Assessment Notes Abdominal pain had a HIDA scan that showed a normally functioning gall bladder. has other evaluations all normal will observe Next Appt Details Provider Name:Shiva An ier, 03/27/2025 11:00:00 AM, [address] [facility], [address], [place], [place], [phone], Progress Notes * Dee COCHRANDOB:1980 ( 43 yo F)Acc No.[id number]:09/18/2024 Progress Notes Patient: Dee JONES Provider: Natan Willingham MD :1980 A ge:43 Y S ex:Female Date:09/18/2024 Address:[address] [place] [address] JODI MARTINES [id number] Subjective: * Chief Complaints: * 6 month * HPI: S ymptom(s): patient is a 43 yo female here for 6 mnth follow up visit/ had gall bladder scan. * ROS: G eneral/Constitutional: Patient complaining of g ets twitching in various places with long exercise. D enies C hills. D enies F atigue. D enies F ever. D enies H eadache. E NT: Denies S ore throat. R espiratory: Denies C ough. D enies S hortness of breath at rest. D enies S hortness of breath with exertion. G astrointestinal: Denies D iarrhea. D enies H eartburn. ? * Medical History: * Surgical History: * Hospitalization/Major Diagno stic Procedure: * Medications: T akingLevothyroxine Sodium 50 MCG Tablet TAKE 2 TABLETS BY MOUTH ONCE A DAY BUT TUESDAYS TAKE 1 TABLET Taking Levothyroxine Sodium 50 MCG Tablet TAKE 2 TABLETS BY MOUTH ONCE A DAY BUT TUESDAYS TAKE 1 TABLET Not-Taking/PRNPepto-Bismol 262 MG Tablet Chewable 2 tablets with meals and at bedtime Orally Four times a day Tylenol 325 MG Tablet 1 tablet as needed Orally every 4 hrs Aleve 220 MG Tablet 1 tablet with food or milk as needed Orally every 12 hrs Cyclobenzaprine HCl 5 MG Tablet 1 tablet at bedtime as needed Orally twice a day Medication List reviewed and reconciled with the patientNot-Taking/PRN Pepto-Bismol 262 MG Tablet Chewable 2 tablets with meals and at bedtime Orally Four times a day Not-Taking/PRN Tylenol 325 MG Tablet 1 tablet as needed Orally every 4 hrs Not-Taking/PRN Aleve 220 MG Tablet 1 tablet with food or milk as needed Orally every 12 hrs Not-Taking/PRN Cyclobenzaprine HCl 5 MG Tablet 1 tablet at bedtime as needed Orally twice a day Medication List reviewed and reconciled with the patient * Allergies: N .K.D.A.yes[Allergies Verified] Objective: * Vitals: H t: 56.5, Wt: 268, BMI:59.02, BP:120/78, Wt-k.56. * Examination: G eneral Examination: GENERAL APPEARANCE: w ell developed, well nourished. HEAD: n ormocephalic. SKIN: g ood turgor. HEART: n o murmurs, rubs, gallops. LUNGS: n o wheezes, rales, rhonchi, good air movement, clear to auscultation bilaterally. Assessment: * Assessment: 1. A cquired hypothyroidism - E03.9 (Primary) 2 . A bdominal pain - R10.9? Plan: * Treatment: 2. A bdominal pain Notes: had a HIDA scan that showed a normally functioning gall bladder. has other evaluations all normal will observe * Procedure Codes: 3 6415 VENIPUNCT, ROUTINE* * * Sign off status: Completed true * Provider: Natan Willingham MD Date: 0 09/18/2024 Generated for Erwin christianson/Hung/Kathleenitting on: 1 05/13/2024 11:20 AM EST History and Physical Notes * HPI (History of Present Illness) Category Sub-Category Detail Notes Category Not es Symptom(s) patient is a 43 yo female here for 6 mnth follow up visit/ had gall bladder scan Examination Category Sub-Category Detail Notes Category Not es General Examination GENERAL APPEARANCE: well developed , well nourished HEAD: normocephalic HEART: no murmurs, rubs, ga llops LUNGS: no wheezes, rales, r honchi, good air movement, clear to auscultation bilaterally SKIN: good turgor
--- OUTSIDE RECORDS SUMMARY | 2024-11-04 09:15 | XMS_ITS ---
Author Organization Shiva Willingham MD Address [address] [place] [phone] Care Team Providers Care Fuel Manager Name Role Phone Shiva Willingham Primary Care Provider [phone] Allergies No Known Allergies REASON FOR VISIT RIGHT SIDE PAIN RIBS no injury but now patient can feel a lump Medications Medication SIG (Take, Route, Frequency, Duration) Notes Start Date End Date Status Levothyroxine Sodium 50 MCG TAKE 2 TABLE TS BY MOUTH ONCE A DAY BUT TUESDAYS TAKE 1 TABLET Active Cyclobenzaprine HCl 5 MG 1 tablet at bed time as needed Orally twice a day for 10 days 04/30/2020 Not-Taking Aleve 220 MG 1 tablet with food o r milk as needed Orally every 12 hrs Not-Taking Tylenol 325 MG 1 tablet as needed Orally every 4 hrs Not-Taking Pepto-Bismol 262 MG 2 tablets with meals and at bedtime Orally Four times a day for 30 day(s) Not-Taking Vital Signs Blood pressure systolic 112 mm Hg 11/05/19 25 Blood pressure diastolic 76 mm Hg 025 Height 56.5 in 11/04/2024 Weight 268 lbs 11/04/2024 BMI 59.02 kg/m2 11/04/2024 Encounters Encounter Location Date Provider Diagnosis Shiva Willingham MD [address] [place] [phone] 11/04/2024 Shiva Willingham Chest pain R07.9 Assessments Encounter Date Diagnosis (ICD Code) Assessment Notes Treatment Notes Treatment Clinical Notes Section Notes 11/04/2024 Chest pain (ICD-10 - R07.9) if insurance won't allow will try us of soft tissue/ order faxed to [facility] Plan Of Treatment Treatment Notes Assessment Notes Chest pain if insurance won't a llow will try us of soft tissue/ order faxed to [facility] Pending Test Test Name Order Date MRI CHEST W&WO CONTRAST 11/04/2024 Next Appt Details Follow Up: 4 Weeks, Reason: Provider Name:Shiva An ier, 03/27/2025 11:00:00 AM, [address], [address], [place], [place], [phone], Progress Notes * Dee COCHRANDOB:1980 ( 43 yo F)Acc No.[id number]:11/04/2024 Progress Notes Patient: Dee JONES Provider: Natan Willingham MD :1980 A ge:43 Y S ex:Female Date:11/04/2024 Address:[address] [place], [place] [phone] Subjective: * Chief Complaints: * R IGHT SIDE PAIN RIBS no injury but now patient can feel a lump * HPI: S ymptom(s): patient is a 43 yo female here with complaint of right sided rib pain/ 2 weeks of abdominal pain aharp with certain movement. motrin helps and now feel a lump. * ROS: G eneral/Constitutional: Denies C hills. D enies F atigue. D enies F ever. D enies H eadache. E NT: Denies S ore throat. R espiratory: Denies C ough. D enies S hortness of breath at rest. D enies S hortness of breath with exertion. G astrointestinal: Denies D iarrhea. D enies N ausea. * Medical History: * Surgical History: * [...] Vitals: H t: 56.5, Wt: 268, BMI:59.02, BP:112/76, Wt-k.56. * Examination: G eneral Examination: GENERAL APPEARANCE: a lert, well hydrated, in no distress.? CHEST: t enderness to palpation of the rt anterior ribs. no mass. Assessment: * Assessment: 1. C hest pain - R07.9 (Primary) Plan: * Treatment: * Procedure Codes: * Follow Up: 4 Weeks * * Sign off status: Completed true * Provider: Natan Willingham MD Date: 0 11/04/2024 Generated for Erwin christianson/Hung/Logansmitting on: 05/13/2024 11:21 AM EST History and Physical Notes * HPI (History of Present Illness) Category Sub-Category Detail Notes Category Not es Symptom(s) patient is a 43 yo female here with complaint of right sided rib pain/ 2 weeks of abdominal pain aharp with certain movement. motrin helps and now feel a lump Examination Category Sub-Category Detail Notes Category Not es General Examination GENERAL APPEARANCE: alert, w ell hydrated, in no distress CHEST: tenderness to palpat ion of the rt anterior ribs. no mass
--- OUTSIDE RECORDS SUMMARY | 2024-11-06 07:12 | XMS_ITS ---
Author Organization Shiva Willingham MD Address [address] [place] [phone] Care Team Providers Care Reimbursement Specialist Name Role Phone Shiva Willingham Primary Care Provider REASON FOR VISIT orders for CT chest Encounters Encounter Location Date Provider Diagnosis Shiva Willingham MD [address] [place] [phone] 11/06/2024 Shiva Willingham Chest pain R07.9 Assessments Encounter Date Diagnosis (ICD Code) Assessment Notes Treatment Notes Treatment Clinical Notes Section Notes 11/06/2024 Chest pain (ICD-10 - R07.9) Plan Of Treatment Pending Test Test Name Order Date CT CHEST W&WO CONTRAST 11/06/2024 Next Appt Details Provider Name:Shiva An ier, 03/27/2025 11:00:00 AM, [address], Suite [facility], [place], [place], [phone], Progress Notes * Dee COCHRANDOB:1980 ( 43 yo F)Acc No.[id number]:11/06/2024 Patient: Dee JONES :1980 A ge:43 Y S ex:Female Address:[address] [place] [address] [place], [phone] Subjective: * Chief Complaints: * o rders for CT chest * Medical History: * Surgical History: * Hospitalization/Major Diagno stic Procedure: * Medications: Objective: * Vitals: * Physical Examination: Assessment: * Assessment: 1. C hest pain - R07.9 Plan: * Treatment: * Procedure Codes: * true * Date: Generated for Erwin christianson/Hung/Isa on: 05/13/2024 11:20 AM EST
--- OUTSIDE RECORDS SUMMARY | 2024-11-10 05:46 | XMS_ITS ---
Author Organization Shiva Willingham MD Address [address] [place] [phone] Care Team Providers Care Dentures Lab Technician Name Role Phone Shiva Willingham Primary Care Provider REASON FOR VISIT CT chest orders Encounters Encounter Location Date Provider Diagnosis Shiva Willingham MD [address] [place] [phone] 11/10/2024 Shiva Willingham Chest pain R07.9 Assessments Encounter Date Diagnosis (ICD Code) Assessment Notes Treatment Notes Treatment Clinical Notes Section Notes 11/10/2024 Chest pain (ICD-10 - R07.9) Plan Of Treatment Pending Test Test Name Order Date CT CHEST WITH CONTRAST 11/10/2024 Next Appt Details Provider Name:Shiva An ier, 03/27/2025 11:00:00 AM, [address], Suite [facility], [place], [place], [phone], Progress Notes * Dee COCHRANDOB:1980 ( 43 yo F)Acc No.[id number]:11/10/2024 Patient: Dee JONES :1980 A ge:43 Y S ex:Female Address:[place], [address] Subjective: * Chief Complaints: * C T chest orders * Medical History: * Surgical History: * Hospitalization/Major Diagno stic Procedure: * Medications: Objective: * Vitals: * Physical Examination: Assessment: * Assessment: 1. C hest pain - R07.9 Plan: * Treatment: * Procedure Codes: * true * Date: Generated for Erwin christianson/Hung/Isa on: 05/13/2024 11:20 AM EST
--- OUTSIDE RECORDS SUMMARY | 2024-12-01 09:15 | XMS_ITS ---
Author Organization Shiva Willingham MD Address [address] [place] [phone] Care Team Providers Care Pre Sales Systems Engineer Name Role Phone Shiva Willingham Primary Care Provider Allergies No Known Allergies Reason For Referral Reason RIB PAIN Diagnosis 1 Rib pain (R07.81) Referral Organization Shiva Willingham MD Referring Provider First Name Shiva Referring Provider Last Name Maulik Referring Provider Speciality Internal M edicine Referred Provider , [facility] Referred Provider Specialty Physical The rapist General Notes Sri Gresham 12/01/2024 03:00:36 PM >THE REFFERAL WAS FAXED TO [facility] IN [place], Sri Gresham 12/18/2024 09:34:35 AM >PER [facility] THEY HAVE LEFT IRIS 2 MESSAGES AND SHE HAS NOT RETURNED THEIR CALL, Sri Gresham 01/05/2025 08:47:08 AM >I LEFT IRIS ANOTHER MESSAGE TODAY TO SEE IF SHE [facility] 01/08/2025 09:25:59 AM >NO RESPONSE FROM [facility], CLOSE REFERRAL Referral Priority Routine REASON FOR VISIT 4 week Medications Medication SIG (Take, Route, Frequency, Duration) Notes Start Date End Date Status Cyclobenzaprine HCl 5 MG 1 tablet at bed time as needed Orally twice a day for 10 days 04/30/2020 Not-Taking Aleve 220 MG 1 tablet with food o r milk as needed Orally every 12 hrs Not-Taking Pepto-Bismol 262 MG 2 tablets with meals and at bedtime Orally Four times a day for 30 day(s) Not-Taking Levothyroxine Sodium 50 MCG TAKE 2 TABLE TS BY MOUTH ONCE A DAY BUT TUESDAYS TAKE 1 TABLET Active Tylenol 325 MG 1 tablet as needed Orally every 4 hrs Not-Taking Vital Signs Blood pressure systolic 112 mm Hg 12/02/19 25 Blood pressure diastolic 70 mm Hg 025 Height 56.5 in 12/01/2024 Weight 268 lbs 12/01/2024 BMI 59.02 kg/m2 12/01/2024 Encounters Encounter Location Date Provider Diagnosis Shiva Willingham MD [address] [facility] [address] [place] [phone] 12/01/2024 Shiva Willingham Rib pain R07.81 Assessments Encounter Date Diagnosis (ICD Code) Assessment Notes Treatment Notes Treatment Clinical Notes Section Notes 12/01/2024 Rib pain (ICD-10 - R07.81) referral to [facility] in [place] 12/01/2024 Other REFERRAL MADE AND FAXED TO [facility] IN [place].IRIS IS AWARE Plan Of Treatment Treatment Notes Assessment Notes Rib pain referral to [facility] in [place] Other REFERRAL MADE AND FA XED TO [facility] IN [place].IRIS IS AWARE Referrals Referral Date Details 12/01/2024 12/01/2024, RIB PAIN , [facility] Next Appt Details Provider Name:Shiva An ier, 03/27/2025 11:00:00 AM, [address] [facility] [address] [facility] [address], [address], [place], [place], [phone], Progress Notes * Emma COCHRANDOB:1980 ( 43 yo F)Acc No.[id number]:12/01/2024 Progress Notes Patient: Emma JONES Provider: Natan Willingham MD :1980 A ge:43 Y S ex:Female Date:12/01/2024 Address:[address] [place], [place] [address]JODI [id number] Subjective: * Chief Complaints: * 4 week * HPI: S ymptom(s): patient is a 43 yo female here with complaint of p ain in rt ribs with twisting every day and bothered with eating. * ROS: G eneral/Constitutional: Denies C hills. [...] Vitals: H t: 56.5, Wt: 268, BMI:59.02, BP:112/70, Wt-k.56. * Examination: G eneral Examination: GENERAL APPEARANCE: a lert, well hydrated, in no distress.? HEAD: n ormocephalic. SKIN: g ood turgor. LUNGS: n o wheezes, rales, rhonchi, good air movement, clear to auscultation bilaterally. CHEST: a bnormal with tenderness over the rid ribs in axillary line. Assessment: * Assessment: 1. R ib pain - R07.81 (Primary) Plan: * Treatment: 2. O thers Notes: REFERRAL MADE AND FAXED TO [facility] IN [place].IRIS IS AWARE * Procedure Codes: * * Sign off status: Completed true * Provider: Natan Willingham MD Date: 0 12/01/2024 Generated for Erwin chritsianson/Hung/eTransmitting on: 1 05/13/2024 11:20 AM EST History and Physical Notes * HPI (History of Present Illness) Category Sub-Category Detail Notes Category Not es Symptom(s) patient is a 43 yo female here with complaint of pain in rt ribs with twisting every day and bothered with eating Examination Category Sub-Category Detail Notes Category Not es General Examination GENERAL APPEARANCE: alert, w ell hydrated, in no distress HEAD: normocephalic CHEST: abnormal with tender ness over the rid ribs in axillary line LUNGS: no wheezes, rales, r honchi, good air movement, clear to auscultation bilaterally SKIN: good turgor Consultation Request Notes Referral Date Referring Provider Referred Provider Not es 12/01/2024 Shiva Willingham, [facility]
--- OUTSIDE RECORDS SUMMARY | 2024-12-04 05:40 | XMS_ITS ---
Author Organization Shiva Willingham MD Address [address] [place], [place] [phone] Care Team Providers Care Director Compliance Name Role Phone Shiva Willingham Primary Care Provider [phone] REASON FOR VISIT INS referral Encounters Encounter Location Date Provider Diagnosis Shiva Willingham MD [address] [place] [phone] 12/04/2024 Shiva Willingham Plan Of Treatment Next Appt Details Provider Name:Shiva An ier, 03/27/2025 11:00:00 AM, [address], [address], [place], [place], [phone], Progress Notes * Dee COCHRANDOB:1980 ( 43 yo F)Acc No.[id number]:12/04/2024 Patient: Dee JONES :1980 A ge:43 Y S ex:Female Address: [place], [address] * true * Date: Generated for Printi ng/Faxing/eTransmitting on: 05/13/2024 11:20 AM EST
--- OUTSIDE RECORDS SUMMARY | 2025-03-13 02:15 | XMS_ITS ---
Author Organization Shiva Willingham MD Address [address] [place], [place] [phone] Care Team Providers Care Hospital Social Worker Name Role Phone Shiva Willingham Primary Care Provider Results Component Value Reference Range Notes Complete Blood Count Auto Di ff (Not yet reviewed by provider) Interpretation: Performing Lab:[facility], [address] [place] [phone] Notes/Report: White Blood Count 8.7 4.8-10.8 X10*3/uL Red Blood Count 4.26 4.20-5.50 X10*6/uL Hemoglobin 12.2 12.0-16.0 g/dl Hematocrit 38.3 37.0-47.0 % Mean Corpuscular Volume 89.9 80.0-98.0 fL Mean Corpuscular Hemoglobin 28.6 27.0-33.0 pg Mean Corpuscular HGB Conc 31.9 31.0-35.0 g/dl Red Cell Distribution Width 13.9 11.0-16.0 % Platelet Count 384 160-400 X10*3/uL Mean Platelet Volume 10.0 9.4-12.3 fL Neutrophils Percent Auto 64.5 45-73 % Imm Gran Pct Auto 0.2 0.0-0.4 % Lymphocytes Percent Auto 26.2 20-40 % Monocytes Percent Auto 6.3 2-11 % Eosinophils Percent Auto 2.6 0-4 % Basophils Percent Auto 0.2 0-2 % NRBC Pct Auto 0.0 0.0-0.2 /100WBC Neutrophils Absolute Auto 5.6 2.0-8.3 x10*3/u L Imm Gran Abs Auto 0.02 0.00-0.03 X10*3/uL Lymphocytes Absolute Auto 2.3 1.2-4.9 X10*3/u L Monocytes Absolute Auto 0.6 0.1-1.2 X10*3/uL Eosinophils Absolute Auto 0.2 0.0-0.4 X10*3/u L Basophils Absolute Auto 0.0 0.0-0.2 X10*3/uL NRBC Abs Auto 0.000 0.0-0.012 X10*3/uL UA ClnCatch+Micro w/rflx Cul t (Not yet reviewed by provider) Interpretation: Performing Lab:[facility], [address] [place] [phone] Notes/Report: Urine, Clean Catch Color Urine Yellow Appearance Urine Hazy PH 6.0 5.0-9.0 Glucose Urine UA Negative Negative mg/dL Urine Blood Negative Negative Specific [place] - Urine >= 1.030 1.005-1.025 Urine Protein Negative Neg-Trace mg/dL Urine Ketones Negative Negative mg/dL Nitrite Urine Negative Negative Leukocyte Esterase Urine Negative Negative RBC Urine 0-2 0-2 /HPF WBC Urine 0-5 0-5 /HPF Squamous Epithelial Cell Urine 6-10 0-2 /HPF Bacteria Urine None Seen None Seen Hyaline Casts Urine 0-2 0-2 /LPF REASON FOR VISIT yearly fasting labs Encounters Encounter Location Date Provider Diagnosis Shiva Willingham MD [address] [facility] [address] [place], [place] [phone] 03/13/2025 Shiva Willingham Blood tests for routine general physical examination Z00.00 and Acquired hypothyroidism E03.9 Assessments Encounter Date Diagnosis (ICD Code) Assessment Notes Treatment Notes Treatment Clinical Notes Section Notes 03/13/2025 Blood tests for routine general physical examination (ICD-10 - Z00.00) 03/13/2025 Acquired hypothyroidism (ICD-10 - E03.9) Plan Of Treatment Pending Test Test Name Order Date Complete Blood Count Auto Diff 5 Comprehensive [place]. Panel Fast 5 Lipid Panel 03/13/2025 TSH reflex Free T4 03/13/2025 UA ClnCatch+Micro w/rflx Cult 03/13/2025 Next Appt Details Provider Name:Shiva An ier, 03/27/2025 11:00:00 AM, [address], [address], [place], [place], [phone], Progress Notes * Dee COCHRANDOB:1980 ( 44 yo F)Acc No.[id number]:03/13/2025 Progress Note Patient: Dee JONES Provider: Natan Willingham MD :1980 A ge:44 Y S ex:Female Date:03/13/2025 Address:[address] [place] [address] [id number] Subjective: * Chief Complaints: * 1 . Yearly fasting labs. * Medical History: Objective: * Vitals: Assessment: * Assessment: 1. B lood tests for routine general physical examination - Z00.00 (Primary) 2 .?Acquired hypothyroidism - E03.9 Plan: * Treatment: 2. A cquired hypothyroidism L AB: Complete Blood Count Auto Diff (Collection Date & Time - 03/13/2025 07:15 AM) L AB: Comprehensive [place]. Panel Fast L AB: Lipid Panel L AB: TSH reflex Free T4 L AB: UA ClnCatch+Micro w/rflx Cult (Collection Date & Time - 03/13/2025 07:15 AM) * Procedure Codes: 3 6415 VENIPUNCT, ROUTINE*, 23601 VENIPUNCT, ROUTINE* * * The named appointment provid er may or may not be the originator of this progress note, and it is not deemed complete until electronically signed by the appointment provider. Sign off status: Pending * Provider: Natan Willingham MD Date: 05/13/2024 Generated for Erwin christianson/Hung/Logansmitting on: 05/13/2024 11:21 AM EST
--- OUTSIDE RECORDS SUMMARY | 2025-03-13 05:21 | XMS_ITS ---
Author Organization Shiva Willingham MD Address [address] [place] [phone] Care Team Providers Care Surveillance Agent Name Role Phone Shiva Willingham Primary Care Provider [phone] REASON FOR VISIT rfill Medications Medication SIG (Take, Route, Frequency, Duration) Notes Start Date End Date Status Levothyroxine Sodium 50 MCG TAKE 2 TABLE TS BY MOUTH ONCE A DAY BUT TUESDAYS TAKE 1 TABLET for 90 days Active Encounters Encounter Location Date Provider Diagnosis Shiva Willingham MD [address] [place] [address] [phone] 03/13/2025 Shiva Willingham Acquired hypothyroidism E03.9 Assessments Encounter Date Diagnosis (ICD Code) Assessment Notes Treatment Notes Treatment Clinical Notes Section Notes 03/13/2025 Acquired hypothyroidism (ICD-10 - E03.9) Plan Of Treatment Medication Medication Name Sig Start Date Stop Date Notes Levothyroxine Sodium 50 MCG TAKE 2 TABLE TS BY MOUTH ONCE A DAY BUT TUESDAYS TAKE 1 TABLET for 90 days Next Appt Details Provider Name:Shiva An ier, 03/27/2025 11:00:00 AM, [address], Suite [facility], [place], [place], [phone], Progress Notes * Dee COCHRANDOB:1980 ( 44 yo F)Acc No.[id number]:03/13/2025 Patient: Dee JONES :1980 A ge:44 Y S ex:Female Address:[address] [place] [address] [place], [phone] * Refills Refill Levothyroxine Sodium Tablet, 50 MCG, 180, TAKE 2 TABLETS BY MOUTH ONCE A DAY BUT TUESDAYS TAKE 1 TABLET, 90 days, Refills=0 * * Date:
[2025-03-13 10:40] LABS: MANUAL DIFF FLAG NO
[2025-03-13 11:01] LABS: Appearance Urine Hazy; Glucose Urine UA Negative (Negative); Hematocrit 38.3 % (37.0-47.0); Hemoglobin 12.2 g/dl (12.0-16.0); Imm Gran Abs Auto 0.02 X10*3/uL (0.00-0.03); Imm Gran Pct Auto 0.2 % (0.0-0.4); Lymphocytes Absolute Auto 2.3 X10*3/uL (1.2-4.9); Mean Corpuscular HGB Conc 31.9 g/dl (31.0-35.0); Mean Corpuscular Hemoglobin 28.6 pg (27.0-33.0); Mean Corpuscular Volume 89.9 fL (80.0-98.0); NRBC Abs Auto 0.000 X10*3/uL (0.0-0.012); NRBC Pct Auto 0.0 /100WBC (0.0-0.2); PH 6.0 (5.0-9.0); Platelet Count 384 X10*3/uL (160-400); Red Blood Count 4.26 X10*6/uL (4.20-5.50); Specific Gravity - Urine >= 1.030 (1.005-1.025); White Blood Count 8.7 X10*3/uL (4.8-10.8)
--- OUTSIDE RECORDS SUMMARY | 2025-03-13 11:20 | XMS_ITS | Patient Health Record ---
Author Organization [facility] Address [address] [place] [address] Care Team Providers Care Well Reactivator Operator Name Role Phone Maulik LYNN, Shiva Primary Care Provider Derek Alejandro Jr Unavailable Allergies No Known Allergies Reason For Referral No Information Medications Medication SIG (Take, Route, Frequency, Duration) Notes Start Date End Date Status Tums 500 MG Tablet Chewable 1 tablet Ora lly Once a day; Duration: 30 day(s) Active Omeprazole 20 MG Capsule Delayed Release 1 capsule Orally Twice a day; Duration: 14 days 03/01/2021 Active Omeprazole 20 MG Capsule Delayed Release 1 capsule 30 minutes before morning meal Orally Once a day; Duration: 30 day(s) 01/17/2021 Active Levothyroxine Sodium 100 MCG Tablet 1 tablet in the morning on an empty stomach Orally Once a day; Duration: 30 day(s) Active Multivitamin - Tablet 1 tablet Orally On ce a day; Duration: 30 day(s) Active Immunizations Vaccine Route Administration Date Status Comme nts Influenza Unknown 01/17/2021 Administered Social History Tobacco Use: Social History Observation Description Date Details (start date - stop date) Never Smoker NA - NA Social History Drugs/Alcohol: Social Info Question Answer Notes Alcohol Screen Did you have a drink containing alcohol in the past year? No Points 0 Interpretation Negative Tobacco Use: Social Info Question Answer Notes Tobacco Use/Smoking Patient is a nonsmoker Additional Details Category Social Info Options Details Miscellaneous: Marital status: single Occupation: works full-time Problems Problem Type SNOMED Code ICD Code Onset Dates Problem Status W/U Status Risk Notes Problem Gastroesophageal reflux disease without esophagitis (635752107) Gastroesophageal reflux disease without esophagitis (K21.9) Active confirmed Problem Gastritis (7804601) Gastritis (K29.70) Active c onfirmed Problem Helicobacter pylori gastrointestinal tract infection (170038179) H. pylori infection (A04.8) Active confirmed Plan Of Treatment Pending Test Test Name Order Date H pylori Ag Stool 06/15/2021 Future Test Test Name Order Date UPPER GI ENDOSCOPY 01/17/2021 Insurance Providers Payer Name Payer Address Payer Phone Subscriber Number Group Number Insured Name Patient Relationship to Insured Coverage Start Date Coverage End Date [facility] [employer] CLAIMS [address] [place] [address] [id number] EMMA GARRISON Self - patient is the insured Medical (General) History Medical History History ICD Code Galen's thyroiditis, hypothyroid Palpitations Surgical History Surgery Date(Month/Year) ovarian cyst removed in late . Hospitalization History Reason Date(Month/Year) hospitalization due to thyroid april 242020
--- OUTSIDE RECORDS SUMMARY | 2025-03-13 11:21 | XMS_ITS | Clinical Summary ---
Author Organization [facility] Address [address] [place] [phone] Phone Care Team Providers Care Operations Recruiter Name Role Phone Shiva Willingham MD Primary Care Provider Allergies No known active allergies Medications levothyroxine (SYNTHROID, LEVOTHROID) 112 MCG tablet Take 112 mcg by mouth 1 (one) time each day 06/16/2020 Active propranolol (INDERAL) 20 MG tablet Take 1 tablet by mouth 1 (one) time each day 09/18/2020 Active nystatin (MYCOSTATIN) 468939 UNIT/ML suspension Take 5 mL by mouth [...] Health Maintenance Due Date Last Done Comments Hepatitis B Vaccine (1 of 3 - 19+ 3-dose series) 12/09 Pneumococcal Vaccine: Peds ( 0 to 5 Years) and At-Risk Patients (6 to 49 Years) (1 of 2 - PCV) 12/09/1998 Influenza Vaccine (#1) 2024 Insurance [facility] Care Teams Operations Recruiter Relationship Specialty Start Date End Date Shiva Willingham MD [address] [place], [place] PCP - General Internal Medicine 10/06/20
--- OUTSIDE RECORDS SUMMARY | 2025-03-13 11:21 | XMS_ITS | Patient Health Record ---
Author Organization Shiva Willingham MD Address [address] [place], [place] [phone] Care Team Providers Care Hogshead Filler Name Role Phone Shiva Willingham Primary Care Provider Allergies No Known Allergies Results Component Value Reference Range Notes Complete Blood Count Auto Di ff (Not yet reviewed by provider) Interpretation: Performing Lab:[facility] [place], [address] [place] [phone] Notes/Report: White Blood Count 8.7 4.8-10.8 X10*3/uL [...] 0.0-0.2 /100WBC Neutrophils Absolute Auto 5.6 2.0-8.3 x10*3/uL Imm Gran Abs Auto 0.02 0.00-0.03 X10*3/uL Lymphocytes Absolute Auto 2.3 1.2-4.9 X10*3/uL Monocytes Absolute Auto 0.6 0.1-1.2 X10*3/uL Eosinophils Absolute Auto 0.2 0.0-0.4 X10*3/uL Basophils Absolute Auto 0.0 0.0-0.2 X10*3/uL NRBC Abs Auto 0.000 0.0-0.012 X10*3/uL UA ClnCatch+Micro w/rflx Cul t (Not yet reviewed by provider) Interpretation: Performing Lab:[address] [address] Notes/Report: Urine, Clean Catch Color Urine Yellow Appearance Urine Hazy PH 6.0 5.0-9.0 Glucose Urine UA Negative Negative mg/dL Urine Blood Negative Negative Specific [place] - Urine >= 1.030 1.005-1.025 Urine Protein Negative Neg-Trace mg/dL Urine Ketones Negative Negative mg/dL Nitrite Urine Negative Negative Leukocyte Esterase Urine Negative Negative RBC Urine 0-2 0-2 /HPF WBC Urine 0-5 0-5 /HPF Squamous Epithelial Cell Urine 6-10 0-2 /HPF Bacteria Urine None Seen None Seen Hyaline Casts Urine 0-2 0-2 /LPF TSH reflex Free T4 Reviewed date:09/18/2024 04:11:32 PM Interpretation: Performing Lab:[facility] [place], [address] [place] [phone] Notes/Report: TSH reflex Free T4 1.72 0.32-4.0 uIU/mL Ur Preg Test Reviewed date:03/27/2024 12:49:52 PM Interpretation: Performing Lab:[address] [address] Notes/Report: Urine NEGATIVE NEGATIVE This test was developed to detect early . False negative results may occur after the 5th - 7th week of when using this test method. If clinically indicated, consider a serum hCG. Pathology Reviewed date:03/31/2024 12:58:34 PM Interpretation: Performing Lab:[address] [address] Notes/Report: ----- Name: Dee Cochran Age/Sex: 43/F : 1980 Unit#: [id number] Attend Dr: Alvina Chan MD Re03/27/24 Status : [facility] Location: [facility] Disch: ----- SPEC : [id number] RECD : 03/27/24-1336 STATUS: MALISSA ROD NUM: [id number] DIMA: 03/27/24-[address] [facility] [address]: Alvina Chan MD ENTERED: 03/27/24-13 47 SP TYPE: Surgical OTHR DR: Shiva Willingham MD ORDERED: HE Stain/21 , Gross Micro L4/7, IHC, Special st. 2/3, H. pylori, AB/PAS/3 Diagnosis A. Duodenum, biopsy: Small intestinal mucosa within normal limits. B. Stomach, biopsy: Antral-type and oxyntic mucosa with mild chronic inactive inflammation; no Helicobacter organisms seen. C. EG junction, biopsy: - Cardiofundic-type mucosa with mild chronic inactive inflammation; no intestinal metaplasia seen. - Squamous mucosa wi thin normal limits. D. Esophagus, distal , biopsy: Squamous epithelium within normal limits; no inflammation seen. E. Terminal ileum, biopsy: Small intestinal mucosa within normal limits. F. Colon, right, bio psy: Colonic mucosa within normal limits. G. Colon, left, biop sy: Colonic mucosa within normal limits. Clinical History Pre-Op Dx: Right upp er quadrant pain, abnormal bowel habits Post-Op Dx: Mild gastritis, internal hemorrhoids Microscopic Description A-G. Microscopic sec tions examined. No metaplastic changes are seen, supported by AB/PAS stains (A, B or C); no Helicobacter organisms are seen, supported by H. pylori immunostain (B). Material Received A. Duodenum B. Stomach biopsy C. EG junction D. Distal esophagus E. Terminal ileum F. Right sided colon biopsies G. Left sided colon biopsies CONTINUED ON NEXT PAGE ----- Name: Dee Cochran Age/Sex: 43/F : 1980 Unit#: [id number] Attend Dr: Alvina Chan MD Re03/27/24 Status : [facility] Location: [facility] Disch: ----- SPEC : [id number] RECD : 03/27/24 STATUS: MALISSA ROD NUM: [id number] DIMA: 03/27/24-[address] [facility] [address]: Alvina Chan MD ENTERED: 03/27/24-13 47 SP TYPE: Surgical OTHR DR: Shiva Willingham MD ORDERED: HE Stain/21 , Gross Micro L4/7, IHC, Special st. [...] are 2 blake-white rectangular tissue fragments each measu ring 0.3 cm, submitted in toto in a [...] biopsies? are 3 blake-viera irregular tissue fragments ran ging from 0.1-0.3 cm, submitted in toto in a cassette labeled G. CEDS Special studies orde red and performed: Immunostain for H. pylori on B; AB/PAS stains on A, B and C Copies To: Shiva Willingham MD [facility] [address] [address] Alvina Chan MD [facility] [address] [place] [address] CONTINUED ON NEXT PAGE ----- Name: Dee Cochran Age/Sex: 43/F : 1980 Unit#: [id number] Attend Dr: Alvina Chan MD Re03/27/24 Status : [facility] [place] [facility] Location: [facility] Disch: ----- SPEC : [id number] RECD : 03/27/24 STATUS: MALISSA ROD NUM: [id number] DIMA: 03/27/[address]: Alvina Chan MD ENTERED: 03/27/24 47 SP TYPE: Surgical OTHR DR: Shiva Willingham MD ORDERED: HE Stain/ , Gross Micro L4/7, IHC, Special st. 2/, H. pylori, AB/PAS/3 ----- Signed (signature on file) Floyd Cueva MD 03/31/24 1145 ----- END OF REPORT NM hepatobiliary w pharm Reviewed date:06/24/2024 09:43:55 AM Interpretation: Performing Lab: Notes/Report: [address] [address] Nuclear Medicine Report Signed Patient: Dee Cochran MR#: [id number] : 1980 Acct:[id number] Age/Sex: 43 / F ADM Date: 06/23/24 Loc: [facility] Attending Dr: Alvina Chan MD Ordering Physician: Alvina Chan MD Date of Service: 06/23/24 Procedure(s): NM hepatobiliary w pharm Accession Number(s): [id number] cc: Shiva Willingham MD; Alvina Chan MD EXAMINATION: NM BILIARY TRACT CLINICAL INFORMATION: Right upper quadrant pain COMPARISON: Ultrasound abdomen complete 09/04/2023 TECHNIQUE: Following intravenous administration of 5 mCi of technetium 99m mebrofenin, imaging over the right upper quadrant was obtained up to 60 minutes. 2.4 mcg of CCK was given over 30 minutes at 60 minutes and imaging obtained. Next 30 minutes. FINDINGS: There is normal hepatic uptake without any focal defects or enlargement. Gallbladder is visualized by 30 minutes. CBD and small bowel is visualized by 13-14 minutes. Post-CCK the gallbladder ejection fraction At 10 minutes is 13%, At 20 minutes is 69% and At 30 minutes is 84%. NM/NM hepatobiliary w pharm IMPRESSION: Normal HIDA scan. Normal gallbladder ejection fraction of 84% at 30 minutes post CCK . Electronically signed by: Delano Zayas MD 06/24/2024 07:33 AM [facility] Dictated By: Delano Zayas MD Signed By: <Electronically signed by Delano Zayas MD in OV> 06/24/24 0733 DD/ 1052 TD/TT: 06/23/24 1240 Pa[place]: [address] [address] Nuclear Medicine Report Signed Patient: Dee Cochran MR#: [id number] : 1980 Acct:[id number] Age/Sex: 43 / F ADM Date: 06/23/24 Loc: [facility] Attending Dr: Alvina Chan MD Ordering Physician: Alvina Chan MD Date of Service: 06/23/24 Procedure(s): NM hepatobiliary w pharm Accession Number(s): [id number] cc: Shiva Willingham MD; Alvina Chan MD EXAMINATION: NM BILIARY TRACT CLINICAL INFORMATION: Right upper quadrant pain COMPARISON: Ultrasound abdomen complete 09/04/2023 TECHNIQUE: Following intravenou s administration of 5 mCi of technetium 99m mebrofenin, imaging over the right upper quadrant was obtained up to 60 minutes. 2.4 mcg of CCK was given over 30 minutes at 60 minutes and imaging obtained. Ne xt 30 minutes. FINDINGS: There is normal hepa tic uptake without any focal defects or enlargement. Gallbla dder is visualized by 30 minutes. CBD and small bowel is visualized by 13-14 minutes. Post-CCK the gallbla dder ejection fraction At 10 minutes is 13%, At 20 minutes is 69% and At 30 minutes is 84%. N M/NM hepatobiliary w pharm IMPRESSION: Normal HIDA scan. Normal gallbladder ejection fraction of 84% at 30 minutes post CCK . Electronically michael d by: Delano Zayas MD 06/24/2024 07:33 AM [facility] Dictated By: Mr dat Zayas MD Signed By: <Electronically signed by Delano Zayas MD in OV> 06/24/24 0733 DD/ 1052 TD/TT: 06/23/24 1240 Paver: KANE Rodriguez Reviewed date:09/18/2024 12:33:49 PM Interpretation: Performing Lab:[facility] [place], [address] [place] [phone] Notes/Report: Nataliya Rodriguez See Note Specimen held untested for 24 hours; Call to request Chemistry testing. Nataliya Rodriguez (Not yet reviewed by provider) Interpretation: Performing Lab:[facility] [place], [address] [place] [phone] Notes/Report: Nataliya Rodriguez See Note Specimen held untested for 24 hours; Call to request Chemistry testing. Reason For Referral Reason RIB PAIN Diagnosis 1 Rib pain (R07.81) Referral Organization Shiva Willingham MD Referring Provider First Name Shiva Referring Provider Last Name Maulik Referring Provider Speciality Internal M edicine Referred Provider [facility] Referred Provider Specialty Physical The rapist General Notes Gazda-Nguyễn, Sri A 12/01/2024 03:00:36 PM >THE REFFERAL WAS FAXED TO [facility] IN [place], Sri Gresham 12/18/2024 09:34:35 AM >[facility] LEFT [facility] 2 MESSAGES AND SHE HAS NOT RETURNED THEIR CALL, Sri Gresham 01/05/2025 08:47:08 AM >I LEFT IRIS ANOTHER MESSAGE TODAY TO SEE IF SHE HAS CONTACTED [facility], Sri Gresham Ernesto 01/08/2025 09:25:59 AM >NO RESPONSE FROM [facility], CLOSE REFERRAL Referral Priority Routine Medications Medication SIG (Take, Route, Frequency, Duration) Notes Start Date End Date Status Levothyroxine Sodium 50 MCG TAKE 2 TABLE TS BY MOUTH ONCE A DAY BUT TUESDAYS TAKE 1 TABLET for 90 days Active Cyclobenzaprine HCl 5 MG 1 tablet at bed time as needed Orally twice a day for 10 days 04/30/2020 Not-Taking Aleve 220 MG 1 tablet with food o r milk as needed Orally every 12 hrs Not-Taking Pepto-Bismol 262 MG 2 tablets with meals and at bedtime Orally Four times a day for 30 day(s) Not-Taking Tylenol 325 MG 1 tablet as needed Orally every 4 hrs Not-Taking Immunizations Vaccine Route Administration Date Status [...] Problem Status W/U Status Risk Notes Problem 975257907 Irritable bowel syndrome with diarrhea (K58.0) Active confirmed Problem Acquired diverticulum of esophagus (60573679) Diverticulum of esophagus, acquired (K22.5) Active confirmed Problem 26220902 Kidney stone (N20.0) Active confirmed Problem 756570913 Acquired hypothyroidism (E03.9) Active confirmed Problem 83589110 Bilateral carpal tunnel syndrome (G56.03) Active confirmed Problem 63153785 Muscle twitching (R25.3) Active confirmed Problem 967903822 Obesity, morbid, BMI 50 or higher (E66.01) Active confirmed Problem 138336399 Thoracic outlet syndrome (G54.0) Active confirmed Vital Signs Blood pressure diastolic 70 mm Hg 12/01/2024 Height 56.5 in 12/01/2024 Blood pressure systolic 112 mm Hg 12/01/2024 Weight 268 lbs 12/01/2024 BMI 59.02 kg/m2 12/01/2024 Procedures Procedure Date Ordered Date Performed Result Body Sit e Colonoscopy, Screening 03/27/2024 03/27/2024 repeat 10y Encounters Encounter Location Date Provider Diagnosis Shiva Willingham MD [address] [place] [id number] 03/13/2025 Shiva Willingham Blood tests for routine general physical examination Z00.00 and Acquired hypothyroidism E03.9 Shiva Willingham MD [address] [place] [id number] 03/25/2024 Shiva Willingham Acquired hypothyroidism E03.9 ; Annual physical exam Z00.00 ; Irritable bowel syndrome with diarrhea K58.0 and Depression screening Z13.31 Shiva Willingham MD [address] [place] [id number] 09/18/2024 Shiva Willingham Acquired hypothyroidism E03.9 and Abdominal pain R10.9 Shiva Willingham MD [address] [place] [id number] 11/04/2024 Shiva Melindaardier Chest pain R07.9 Shiva Willingham MD [address] [place] [address] [id number] 12/01/2024 Shiva Melindaardilauro Rib pain R07.81 Shiva Willingham MD [address] [place] [id number] 03/13/2025 Shiva Willingham Acquired hypothyroidism E03.9 Shiva Willingham MD [address] [place] [id number] 11/06/2024 Shiva Lawrenceardier Chest pain R07.9 Shiva Willingham MD [address] [place], [place] [id number] 11/10/2024 Shiva Melindaardier Chest pain R07.9 Shiva Willingham MD [address] [place], [place] [id number] 12/04/2024 Shiva Willingham Assessments Encounter Date Diagnosis (ICD Code) Assessment Notes Treatment Notes Treatment Clinical Notes Section Notes 03/13/2025 Blood tests for routine general physical examination (ICD-10 - Z00.00) 03/25/2024 Acquired hypothyroidism (ICD-10 - E03.9) doing well with good tsh, will continue current regiment 03/25/2024 Annual physical exam (ICD-10 - Z00.00) labs reviewed and discussed with patient 09/18/2024 Acquired hypothyroidism (ICD-10 - E03.9) 09/18/2024 Abdominal pain (ICD-10 - R10.9) had a HIDA scan that showed a normally functioning gall bladder. has other evaluations all normal will observe 11/04/2024 Chest pain (ICD-10 - R07.9) if insurance won't allow will try us of soft tissue/ order faxed to Kristie 12/01/2024 Rib pain (ICD-10 - R07.81) referral to [facility] in [place] 03/13/2025 Acquired hypothyroidism (ICD-10 - E03.9) 11/06/2024 Chest pain (ICD-10 - R07.9) 11/10/2024 Chest pain (ICD-10 - R07.9) 03/13/2025 Acquired hypothyroidism (ICD-10 - E03.9) 03/25/2024 Irritable bowel syndrome with diarrhea (ICD-10 - K58.0) has still diarrhea. is going to have colonoscopy, 03/25/2024 Depression screening (ICD-10 - Z13.31) negative screen 12/01/2024 Other REFERRAL MADE AND FAXED TO [facility] IN [place] IS AWARE Plan Of Treatment Pending Test Test Name Order Date URINE CULTURE 10/08/2020 CT CHEST WITH CONTRAST 11/10/2024 CT CHEST W&WO CONTRAST 11/06/2024 MRI CHEST W&WO CONTRAST 11/04/2024 XR GI SERIES 01/06/2021 CTA CHEST FOR PE 02/24/2022 Complete Blood Count Auto Diff Comprehensive [place]. Panel Fast 5 Lipid Panel 03/13/2025 TSH reflex Free T4 03/13/2025 Hold Gold 03/13/2025 US pelvic complete 12/11/2022 UA ClnCatch+Micro w/rflx Cult 03/13/2025 US pelvic and transvaginal 12/14/2022 Next Appt Details Provider Name:Shiva An ier, 03/27/2025 11:00:00 AM, [address] [place] [address], [address], [place], [place], [phone], Insurance Providers Payer Name Payer Address Payer Phone Subscriber Number Group Number Insured Name Patient Relationship to Insured Coverage Start Date Coverage End Date [employer] [address] [place], [place] [id number] Dee Cochran Self - patient is the insured Medical (General) History Medical History History ICD Code MUST BE ON 50 MCG PILLS TO Jass JIN UP HER DOSAGE IT DOES NOT HAVE FILLERS IN IT. ALL OTHERS DO colonoscopy 03/27/24 repeat 10y undefined
[2025-03-13 11:26] LABS: Alanine Aminotransferase 21 U/L (0-31); Albumin Level 4.1 g/dL (3.5-5.0); Anion Gap 8 (12-20); Aspartate Amino Transferase 24 U/L (5-31); Blood Urea Nitrogen 12 mg/dL (9-16); Calcium 9.1 mg/dL (8.4-10.2); Carbon Dioxide 26 mmol/L (22-29); Chloride 108 mmol/L (96-108); Cholesterol 192 mg/dL (<200); Estimated Glomerular Filt Rate > 60; HDL Cholesterol 48 mg/dL (>40); Potassium 4.2 mmol/L (3.3-5.1); Sodium 138 mmol/L (135-145); Total Protein 7.0 g/dL (6.5-8.0); Triglycerides 179 mg/dL (<150)
[2025-03-13 11:27] LABS: Alkaline Phosphatase 86 U/L (39-117)
== END 2025-03-13 10:38 | disposition home or self-care (01) ==
LOC: HO.LNP 10:37
PROVIDERS: Visit Provider Internal Medicine
DX: Z00.00 Encounter for general adult medical examination without abnormal findings (principal); E03.9 Hypothyroidism, unspecified
CPT/HCPCS: 80053; 80061; 81001; 84443; 85025